=== PATIENT | male | born 1985 | race African-American/Black ===

== ENCOUNTER 2020-04-08 08:27 | Inpatient (IN) | payer OTHER ==
[2020-04-08] VITALS (12 sets, daily range): BP systolic 114–148; BP diastolic 6–76
[~2020-04-08] VITALS: Ht 175.3 cm; Wt 93.0 kg
[2020-04-08] MEDS ORDERED: CIPRO500 MG PO (12:10)
[2020-04-08] MEDS ORDERED: AUGMENTIN 875-1 EAC1 ORAL (12:11)
[2020-04-08] MEDS ORDERED: EPINEPHrine 1mg/1ml Amp ONE (12:31)
[2020-04-08] MEDS ORDERED: Lidocaine 1% 10mg/ml/Epi 0.005mg/ml 30ml vial INJ ONE (12:32)
[2020-04-08] MEDS ORDERED: Bacitracin 50000 Units Vial ONE (12:32)
[2020-04-08] MEDS ORDERED: fentaNYL 100 mcg/2 mL IV ONE (12:34)
[2020-04-08] MEDS ORDERED: Midazolam 2mg/2ml Inj ONE (12:34)
[2020-04-08] MEDS ORDERED: Lidocaine 1% MPF 10mg/ml 5ml ONE (12:39)
[2020-04-08] MEDS ORDERED: Ketorolac 30mg Inj ONE (12:39)
[2020-04-08] MEDS ORDERED: Rocuronium Bromide 50mg/5ml Inj IV ONE ×2 (12:45→14:16)
[2020-04-08] MEDS ORDERED: Succinylcholine 20mg/ml 10ml vial ONE (12:45)
--- NOTE | 2020-04-08 12:56 | Anethesia Preoperative Eval ---
Anesthesia Pre-op PMH/ROS General Date of Evaluation: Apr 08, 2020 Time of Evaluation: 12:54 Anesthesiologist: Shaan ASA Score: ASA 2 Mallampati Score Class I : Soft palate, uvula, fauces, pillars visible Class II: Soft palate, uvula, fauces visible Class III: Soft palate, base of uvula visible Class IV: Only hard plate visible Mallampati Classification: Class II Surgeon: Elvis Diagnosis: Recurrent HS Surgical Procedure: Excision of axillary HS Anesthesia History: none Family History: no anesthesia problems Allergies: Coded Allergies: No Known Allergies (Unverified , 04/08/20) Medications: see eMAR Patient NPO?: Yes Past Medical History Cardiovascular: Denies: HTN, CAD, [place], valve dz, arrhythmia, other Pulmonary: Denies: asthma, COPD, PETER, other Gastrointestinal/Genitourinary: Reports: GERD; Denies: CRI, ESRD, other Neurologic/Psychiatric: Reports: depression/anxiety; Denies: dementia, CVA, TIA, other Endocrine: Denies: DM, hypothyroidism, steroids, other HEENT: Denies: cataract (L), cataract (R), glaucoma, [place] (L), [place] (R), other Hematology/Immune: Denies: anemia, DVT, bleeding disorder, other Musculoskeletal/Integumentary: Reports: other - Recurrent HS; Denies: OA, RA, DJD, DDD, edema PMH Narrative: as above PSxH Narrative: None Anesthesia Pre-op Phys. Exam Physician Exam Last Vital Signs Date Time Temp Pulse Resp B/P (MAP) Pulse Ox O2 Delivery O2 Flow Rate FiO2 04/08/20 12:35 Room Air 04/08/20 12:13 98.8 70 20 129/76 (93) 99 Constitutional: NAD Neurologic: CN 2-12 intact Cardiovascular: RRR, no M/R/G Respiratory: CTA Gastrointestinal: S/NT/ND Airway Exam Mallampati Score: Class II MO: full Neck: flexible ROM: full Teeth: intact Dentures: no upper, no lower Anesthesia Pre-op A/P Labs see chart Studies Pre-op Studies: EKG - NSR Risk Assessment & Plan Assessment: ASA 2 Plan: GA with ETT Status Change Before Surgery: No Pre-Antibiotics Drug: Ancef 2gr. Given Within 1 Hr of Incision: Yes Time Given: 13:28 Bhupinder Garduno MD Apr 08, 2020 12:56
[2020-04-08] MEDS ORDERED: NORCO 5-325 TA1 EAC1 ORAL (12:57)
[2020-04-08] MEDS ORDERED: Sterile Water Irrig 1000ml IRRIG ONE (13:00)
[2020-04-08] MEDS ORDERED: LR 1000ml ONE (13:00)
[2020-04-08] MEDS ORDERED: NS Irrig 1000ml ONE (13:00)
--- NOTE | 2020-04-08 13:05 | Pre-Procedure Note/Attestation ---
Pre-Procedure Note/Attestation Complete Prior to Procedure Planned Procedure: bilateral Procedure Narrative: Bilateral axillary excision of HS with flap elevation Attestation I attest that I discussed the nature of the procedure; its benefits; risks and complications; and alternatives (and the risks and benefits of such alternatives), prior to the procedure, with the patient (or the patient's legal territory representative). I attest that, if there was a reasonable possibility of needing a blood transfusion, the patient (or the patient's legal territory representative) was given the [facility] standardized written summary, pursuant to the Miguelangel Thayer Blood Safety Act ([place] Health and Safety Code # 1645, as amended). I attest that I re-evaluated the patient just prior to the surgery and that there has been no change in the patient's H&P, except as documented below: Anastasiya Leal MD Apr 08, 2020 13:05
[2020-04-08] MEDS ORDERED: PCA Education Pamphlet MISC ONE ×2 (13:15→13:45)
[2020-04-08] MEDS ORDERED: Zolpidem 5mg tab ORAL PRN (13:15)
[2020-04-08] MEDS ORDERED: Rate Change PCA 1 Each MISC PRN ×2 (13:15→13:45)
--- NOTE | 2020-04-08 13:24 | History and Physical ---
History of Present Illness General Date patient seen: Apr 08, 2020 Reason for Hospitalization: Wound drainage, pain, post op hypoxia Present Illness HPI 35 year old gentleman with a PMH of hydradenitis suppurativa presents after surgery with Dr. Leal for bilateral axillary hidradenitis suppurativa construction for post op pain, wound drainage and hypoxia. Patient tolerated the surgery well. Estimated blood loss is 100 cc. Currently pain is 4/10 and explained how to use GANTRY RIGGER pump. Patient has no MOISES drains. He has no other complaints besides being groggy from anesthesia. He was on Augmentin and ciprofloxacin prior to proedure. Denies chest pain, headache, blurred vision, weakness, abdominal pain, dysuria or fever. Allergies: Coded Allergies: No Known Allergies (Unverified , 04/08/20) COVID-19 Screening Contact w/high risk pt: No Experienced COVID-19 symptoms?: No Medication History Scheduled Amoxicillin/Potassium Clav 875-125* (Augmentin 875-125 Tablet*), 1 TAB ORAL TWICE A DAY, (Reported) Ciprofloxacin* (Cipro*), 750 MG PO BID, (Reported) Scheduled PRN Hydrocodone Bit/Acetaminophen 5-325* (Man 5-325 Tablet*), 1 TAB ORAL Q6H PRN for FOR PAIN, (Reported) Patient History History Provided By: Patient, PMD Healthcare decision maker N Resuscitation status Full Advanced Directive on File Yes Past Medical/Surgical History Past Medical/Surgical History: (1) Hidradenitis suppurativa Family History Family History: FH: HTN (hypertension) 33 FATHER Social History Social History: (1) Non-smoker Review of Systems Constitutional: Denies: sweats, malaise Eye: Denies: blurred vision, tearing, nose pain, nose congestion ENT: Denies: nose pain, nose congestion, throat pain, throat swelling Respiratory: Reports: shortness of breath; Denies: cough, stridor, wheezing Cardiovascular: Denies: chest pain, edema, palpitations, syncope Gastrointestinal: Denies: abdominal pain, constipation, diarrhea, nausea, melena Genitourinary: Denies: discharge, dysuria Musculoskeletal: Denies: joint pain, joint swelling, muscle pain Skin: Reports: lesions, other - HS; Denies: rash, change in color, change in hair/nails Psychiatric: Denies: depressed feelings, emotional problems Neurological: Denies: numbness, paresthesia, seizure Endocrine: Denies: flushing, intolerance to temperature Hematologic/Lymphatic: Denies: blood clots, easy bleeding, easy bruising Physical Exam General Appearance: no apparent distress, lethargic, overweight, alert oriented x3 Lines, tubes and drains: peripheral HEENT: normocephalic, PERRL Neck: non-tender, normal alignment, supple Respiratory/Chest: chest wall non-tender, lungs clear, no respiratory distress, no accessory muscle use, decreased breath sounds Cardiovascular/Chest: normal peripheral pulses, normal rate, regular rhythm, no gallop/murmur, no JVD Abdomen: non tender, soft, no organomegaly, no mass Extremities: normal inspection, non-pitting, other - limet ROM due to sugical pain Skin Exam: normal pigmentation, warm/dry, no diaphoresis, other - surgical wounds Neurologic: machine heel seat laster II-XII grossly normal, no motor/sensory deficits, alert, oriented x 3, responsive, normal mood/affect Last 24 Hour Vital Signs Date Time Temp Pulse Resp B/P (MAP) Pulse Ox O2 Delivery O2 Flow Rate FiO2 04/08/20 12:35 Room Air 04/08/20 12:13 98.8 70 20 129/76 (93) 99 Height (Feet): 5 Height (Inches): 9.00 Weight (Pounds): 190 Assessment/Plan Problem List: (1) Hidradenitis suppurativa ICD Codes: L73.2 - Hidradenitis suppurativa SNOMED: 14005114 (2) Wound drainage ICD Codes: T14.8XXA - Other injury of unspecified body region, initial encounter SNOMED: 82141768, 120196941 (3) Post-op pain ICD Codes: G89.18 - Other acute postprocedural pain SNOMED: 937036670 (4) Postoperative hypoxia ICD Codes: R09.02 - Hypoxemia; Z98.890 - Other specified postprocedural states SNOMED: 316158865, 491011598 Assessment/Plan: 35 year old gentleman with a PMH of hydradenitis suppurativa presents after surgery with Dr. Leal for bilateral axillary hidradenitis suppurativa construction for post op pain, wound drainage and hypoxia. #Bilateral hydradenitis suppurativa s/p reconstruction #Post-op pain #Post op hypoxia #Surgical wound drainage -Admit to inpatient -Ancef 1g q8 hours -Wound care -Keep O2 sat grater than 92% -ISS -CBC, CMP in the AM -GANTRY RIGGER pump for pain control -Bowel regiment -PT/OT -Heparin subQ 5000 BID -Appreciate recs for Dr. Leal I spent 80 minutes on this admission with 45 minuted of care coordination and counseling. I discussed plan with Dr. Leal. I reviewed plan with RN and charge nurse. Discussed with pharmacy. Kael Shankar M.D. Apr 08, 2020 13:24
[2020-04-08] MEDS ORDERED: Metoclopramide 10mg/2ml Inj IVP PRN (13:30)
[2020-04-08] MEDS ORDERED: Acetaminophen (Non formulary) 100 ML IV ONE (13:30)
[2020-04-08] MEDS ORDERED: LR 1000ml 1,000 ML IVLG SCH (13:30)
[2020-04-08] MEDS ORDERED: Midazolam 2mg/2ml Inj IVP PRN (13:30)
[2020-04-08] MEDS ORDERED: Ketorolac 30mg Inj IV PRN (13:30)
[2020-04-08] MEDS ORDERED: DiphenhydrAMINE 50mg/ml Inj IVP PRN (13:30)
[2020-04-08] MEDS ORDERED: Meperidine 25mg/0.5ml Inj (FOR RIGORS ONLY) IV PRN (13:30)
[2020-04-08] MEDS ORDERED: LORazepam 1mg tab ORAL PRN (13:45)
[2020-04-08] MEDS ORDERED: Naloxone 0.4mg/ml Inj IVP PRN (13:45)
[2020-04-08] MEDS ORDERED: Morphine Sulfate 10mg/ml Inj ONE (13:51)
[2020-04-08] MEDS ORDERED: Sodium Chloride 10ml vial INJ ONE (13:52)
[2020-04-08] MEDS ORDERED: Neostigmine 1mg/ml 10ml Inj ONE (13:54)
[2020-04-08] MEDS ORDERED: Glycopyrrolate 0.2mg/ml 1ml Vial ONE (13:54)
[2020-04-08] MEDS ORDERED: PCA HYDROmorphone 1mg/ml 30 ML IV PRN (14:17)
[2020-04-08] MEDS ORDERED: Surgicel 4in x 8in TOPIC ONE (14:25)
--- NOTE | 2020-04-08 15:38 | Operative Note - PDOC ---
Operative Note Operative Note Procedure: Bilateral axillary HS excision and flap elevation Post-op Diagnosis: same as pre-op Surgeon: Elvis [employer] Superintendent: Maegan Anesthesia: general Specimen: yes Complications: none Condition: stable Estimated Blood Loss: volume - 100 Drains: none Implant(s) used?: No Anastasiya Leal MD Apr 08, 2020 15:38
--- NOTE | 2020-04-08 15:59 | Immediate Post-Op Evaluation ---
Immediate Post-Op Evalulation Immediate Post-Op Evalulation Procedure: Excision of bilateral axillary hydradenitis Date of Evaluation: Apr 08, 2020 Time of Evaluation: 15:58 IV Fluids: 1500 Blood Products: none Estimated Blood Loss: 100 Urinary Output: none Blood Pressure Systolic: 146 Blood Pressure Diastolic: 78 Pulse Rate: 102 Respiratory Rate: 22 O2 Sat by Pulse Oximetry: 99 Temperature (Fahrenheit): 97.6 Pain Score (1-10): 1 Nausea: No Vomiting: No Complications none Patient Status: reacts, patent, extubated, none Hydration Status: adequate Bhupinder Garduno MD Apr 08, 2020 15:59
--- NOTE | 2020-04-08 17:25 | NUR ---
NURSE NOTES: Patient arrived safely to 3E via patient bed in stable condition. Vital signs are stable, no signs of distress or reports of pain at this time.
[2020-04-08] MEDS: D5 1/2NS 1,000 ML IV SCH (18:43)
[2020-04-08] MEDS ORDERED: PCA shift volume MISC SCH (19:00)
[2020-04-08] MEDS: PCA shift volume MISC SCH (19:19)
--- NOTE | 2020-04-08 19:20 | NUR ---
NURSE HAND-OFF: Important Events on Shift:[none] Patient Status: stable Diet: regular Pending Orders: Pending Results/Labs: Pending MD notification: Latest Vital Signs: Temperature 97.9 , Pulse 94 , B/P 122 /73 , Respiratory Rate 20 , O2 SAT 96 , Nasal Cannula, O2 Flow Rate 3 . Vital Sign Comment: Latest Tong Fall Score: 35 Fall Risk: Medium Risk Safety Measures: Call light Within Reach, Bed Alarm , Side Rails Side Rails x1, Bed position Low and Locked. Fall Precautions: Yellow Socks Report given to Hua GRAHAM.
--- NOTE | 2020-04-08 19:30 | NUR ---
NURSE NOTES: Received report from Osmin GRAHAM. Rounding is done. Patient is a/o x4. c/o pain 5/10 at this time with TEACHER OF THE DEAF. Educated how to use TE[employer]ER [employer] DEAF for pain and pt verbalized his understanding. No any distress noted at this time and breathing is even and unlabored. Checked TE[employer]ER OF [employer]AF setting. IV site are intact and patent. IV fluid is running on Rt. hand. Surgical Dressing on horace. axillaries are c/d/i. Bed is on alarm, locked, and lowest position. Call light within reach. Will continue to monitor.
[2020-04-08] MEDS: ceFAZolin 1gm in D5W 55ml IVPB SCH (21:05)
[2020-04-08] MEDS: DiphenhydrAMINE 50mg/ml Inj IVP PRN (21:05)
[2020-04-08 21:52] LABS: BASOPHILS % (AUTO) 0.4 % (0.0-2.0); HEMATOCRIT 35.9 % (42.0-52.0); HEMOGLOBIN 12.1 G/DL (14.2-18.0); LYMPHOCYTES % (AUTO) 7.8 % (20.0-45.0); MEAN CORPUSCULAR VOLUME 91 FL (80-99); MONOCYTES % (AUTO) 8.1 % (1.0-10.0); NEUTROPHILS % (AUTO) 83.8 % (45.0-75.0); PLATELET COUNT 253 K/UL (150-450); RED BLOOD COUNT 3.96 M/UL (4.70-6.10); RED CELL DISTRIBUTION WIDTH 10.8 % (11.6-14.8); WHITE BLOOD COUNT 16.2 K/UL (4.8-10.8)
--- NOTE | 2020-04-08 22:14 | Operative Note - Dictated ---
DATE OF OPERATION: 04/08/2020 PREOPERATIVE DIAGNOSIS: Bilateral advanced stage III hidradenitis in the axilla. POSTOPERATIVE DIAGNOSIS: Bilateral advanced stage III hidradenitis in the axilla. PROCEDURES: 1. Radical excision of left axillary hidradenitis resulting in a defect that measured 20 x 15 cm. 2. Radical excision of right axillary hidradenitis resulting in a defect that measured 10 x 8 cm. 3. Elevation of left lateral chest wall flap for staged closure of left axillary wound. 4. Elevation of right lateral chest wall flap for staged closure of right axillary wound. SURGEON: Anastasiya Leal MD ROTOR BLADE INSTALLER: Nasir Issa MD ANESTHESIA: General. COMPLICATIONS: None. DRAINS: None. ESTIMATED BLOOD LOSS: 100 mL. DISPOSITION: Stable to recovery room. INDICATIONS FOR SURGERY: This is a 35-year-old male with longstanding history of hidradenitis suppurativa, who has undergone previous medical and surgical treatment up in [facility] and has still those treatments. He sought treatment by nd, treatment for management of advanced stage hidradenitis. He has stage III Mayorga hidradenitis in both axillae with exquisite tenderness and pain in a very large area under the left axilla and a slightly smaller area on the right axilla, both of which require urgent excisional debridement with reconstruction; however, given the level of infection present, it was not appropriate to perform a simultaneous reconstruction. As such, the patient will undergo a staged reconstruction at a second surgery. He understands the risks and benefits of the operation and agrees to proceed. DETAILS OF THE OPERATION: The patient was brought to the operating room and laid in the supine position on the operating table. We first began on the left side and his left axilla, chest, and the abdomen were prepped and draped in a sterile usual fashion. The area of the disease on the left side was quite large as stated. A marking pen was used to delineate the extent of the excision and a corresponding flap was designed to cover the anticipated defect. We began by first injecting 20 mL of lidocaine with epinephrine into the infected tissue to minimize the bleeding. After several minutes were lapsed, a 15 blade was used to make the incision around the mcdonough of the axillary disease. With the electrocautery and hand, we dissected all the way to the level of the axillary fascia and there was noted to be extension of the disease all the way deep into the axillary region. Once the specimen was removed en bloc, the resulting defect was quite large, more than 20 x 15 cm. Clearly, it was not amenable to definitive closure primarily. As such, the flap that had been designed was revised to allow for coverage of this large defect. There was also an extension of the disease up to the arm We had to mobilize from the brachial tissue laterally to allow for some mobilization and eventual coaptation with the chest wall flap. The flap was then elevated by making a U-shaped incision along the lateral chest wall. Dissection was carried down to the latissimus muscle fascia. The flap was elevated with perfusion coming from the continuous loft operator of the thoracodorsal artery. With the flap fully mobilized, the skin was then tentatively inset into the defect and it was noted to cover about 80% of the defect of the area by the lateral aspect of the upper arm with an area where we needed to remove some of the brachial flap that we had elevated to cover, otherwise the lateral chest wall flap covered most of the defect. We noted that the donor site was quite large. We had good mobilization as we normally do both inferiorly and superiorly with respect to the latissimus muscle to bring the donor site together and it was noted that it was relatively tight over the superior aspect of the incision. Normally, what I would do at this stage is that we put the flap back into the donor site and put wet-to-dry dressing into the axillary defect with eventual reconstruction that would occur in 48 to 72 hours; however, given the presence of the tight closure of the donor site, I decided to perform some acute tissue expansion or creep by temporarily closing the donor site and leaving the flap in the axillary defect. In this way, the tissues at the donor site would be on stretch over the next 72 hours prior to definitive closure of the donor site and flap inset. Therefore, the decision was made and we went ahead and proceeded by first copiously irrigating the wound bed and after achieving hemostasis, the donor site was closed over Surgicel and this was a temporary closure achieved with #0 Vicryl sutures and raven and some standing 2-0 Prolene sutures. The flap was inset loosely into the axillary defect just with raven and this completed the operation on this side of the patient. Compressive dressings were then applied. We turned our attention to the contralateral axilla. In a similar fashion, markings were made along the axillary disease on this side. A 15 blade was then used following the injection of lidocaine with epinephrine, to excise the disease en bloc. This resulted in a defect that measured 10 x 8 cm. A corresponding U-shaped lateral chest wall flap was designed and elevated using a #15 blade to make the skin incision and electrocautery was used to carry down the incision and dissection to the latissimus muscle fascia. The flap was then elevated based off of perforators of the thoracodorsal artery and with full mobilization, we tentatively put the flap into the defect and noted that it fit perfectly. At this point, the wound was then copiously irrigated with pulse lavage. Hemostasis was achieved. The flap was then placed back to the donor site. Raven were used to secure the flap. Wet-to-dry dressings were placed into the axillary defect and the compression dressings were applied. The plan will be to place the patient on IV antibiotics and to perform dressing changes at the bedside as needed with a plan to return to the operating room on Saturday, which would be in 72 hours for definitive flap inset. All needle and sponge counts were correct at the end of the case. The patient tolerated the procedure well and there was no complications. Anastasiya Leal M.D. DR: Mercedes JOB#: [id number] CC: CHAD
[2020-04-08] MEDS: Heparin 5000 units/ml inj SUBQ SCH (22:44)
[2020-04-09] VITALS: BP 106/68
[2020-04-09 04:00] VITALS: BP 122/79
[2020-04-09] MEDS: DiphenhydrAMINE 50mg/ml Inj IVP PRN ×3 (04:39→18:51)
[2020-04-09] MEDS: D5 1/2NS 1,000 ML IV SCH ×2 (04:39→13:22)
[2020-04-09] MEDS: ceFAZolin 1gm in D5W 55ml IVPB SCH ×3 (05:58→22:07)
[2020-04-09 06:19] LABS: BASOPHILS % (AUTO) 0.9 % (0.0-2.0); EOSINOPHILS % (AUTO) 0.3 % (0.0-3.0); HEMATOCRIT 33.2 % (42.0-52.0); HEMOGLOBIN 11.5 G/DL (14.2-18.0); LYMPHOCYTES % (AUTO) 19.9 % (20.0-45.0); MEAN CORPUSCULAR VOLUME 88 FL (80-99); MONOCYTES % (AUTO) 10.5 % (1.0-10.0); NEUTROPHILS % (AUTO) 68.3 % (45.0-75.0); PLATELET COUNT 260 K/UL (150-450); RED BLOOD COUNT 3.78 M/UL (4.70-6.10); RED CELL DISTRIBUTION WIDTH 10.3 % (11.6-14.8); WHITE BLOOD COUNT 9.7 K/UL (4.8-10.8)
[2020-04-09 06:51] LABS: ALANINE AMINOTRANSFERASE 32 U/L (12-78); ALBUMIN 2.9 G/DL (3.4-5.0); ALBUMIN/GLOBULIN RATIO 0.9 (1.0-2.7); ALKALINE PHOSPHATASE 42 U/L (46-116); ANION GAP 8 mmol/L (5-15); ASPARTATE AMINO TRANSFERASE 20 U/L (15-37); BILIRUBIN,TOTAL 0.5 MG/DL (0.2-1.0); BLOOD UREA NITROGEN 16 mg/dL (7-18); CALCIUM 7.9 MG/DL (8.5-10.1); CARBON DIOXIDE 27 MMOL/L (21-32); CHLORIDE 104 MMOL/L (98-107); CREATININE 1.2 MG/DL (0.55-1.30); POTASSIUM 3.9 MMOL/L (3.5-5.1); SODIUM 139 MMOL/L (136-145)
[2020-04-09] MEDS: PCA shift volume MISC SCH ×2 (07:00→19:27)
--- NOTE | 2020-04-09 07:30 | NUR ---
NURSE NOTES: Received report from Sudha RN, rounds made, pt in bed awake , a/ox4, breaths regular and unlabored on RA , pt c/o pain 10/29 . pt on GREEN END WORKER Dilaudid for pain management , bilateral Axillary dressing clean intact, pt has IVF on the RT hand 20G , intact patent asymptomatic bed in low locked position, side rails upX2, call light with in reach will continue to Monitor
--- NOTE | 2020-04-09 07:32 | NUR ---
NURSE HAND-OFF: Important Events on Shift:[pain control] Patient Status: [stable] Diet: [regular] Pending Orders: [n] Pending Results/Labs:[n] Pending MD notification:[n] Latest Vital Signs: Temperature 98.1 , Pulse 70 , B/P 122 /79 , Respiratory Rate 18 , O2 SAT 99 , Nasal Cannula, O2 Flow Rate 2.0 . Vital Sign Comment: [stable] Latest Tong Fall Score: 35 Fall Risk: Medium Risk Safety Measures: Call light Within Reach, Bed Alarm Zone 2, Side Rails Side Rails x2, Bed position Low and Locked. Fall Precautions: Yellow Socks Report given to [gómez GRAHAM].
[2020-04-09 08:00] VITALS: BP 155/79
--- NOTE | 2020-04-09 09:20 | 48 Hour Post Anesthesia Eval ---
Post Anesthesia Evaluation Procedure: Excision of bilateral axillary hydradenitis Date of Evaluation: Apr 09, 2020 Time of Evaluation: 09:19 Blood Pressure Systolic: 124 0: 78 Pulse Rate: 86 Respiratory Rate: 22 Temperature (Fahrenheit): 97.8 O2 Sat by Pulse Oximetry: 99 Airway: patent Nausea: No Vomiting: No Pain Intensity: 3 Hydration Status: adequate Cardiopulmonary Status: stable Mental Status/LOC: patient returned to baseline Follow-up Care/Observations: n/a Post-Anesthesia Complications: none Follow-up care needed: N/A Bhupinder Garduno MD Apr 09, 2020 09:20
[2020-04-09] MEDS: Heparin 5000 units/ml inj SUBQ SCH ×2 (09:32→22:08)
--- NOTE | 2020-04-09 10:26 | General Progress Note ---
Progress Note Progress Note Pt seen and examined. POD# 1 and doing well. Pain is well controlled. Dressings CDI To OR on Saturday for flap closure of wounds. MD Elvis Horan Amir MD Apr 09, 2020 10:26
--- NOTE | 2020-04-09 10:52 | General Progress Note ---
Subjective Date patient seen: Apr 09, 2020 Time patient seen: 08:45 ROS Limited/Unobtainable: No Constitutional: Reports: malaise; Denies: chills, diaphoresis, fever, weakness HEENT: Denies: double vision, ear pain Cardiovascular: Denies: edema, irregular heart rate, palpitations Respiratory: Denies: shortness of breath, SOB with excertion, SOB at rest, sputum Gastrointestinal/Abdominal: Denies: abdominal pain, black stools, tarry stools, blood in stool Genitourinary: Denies: frequency, hematuria, incontinence, urgency Neurologic/Psychiatric: Denies: depressed, emotional problems, numbness Endocrine: Denies: intolerance to cold, increased hunger Hematologic/Lymphatic: Reports: anemia; Denies: easy bleeding, easy bruising Allergies: Coded Allergies: No Known Allergies (Unverified , 04/08/20) Objective Last 24 Hour Vital Signs Date Time Temp Pulse Resp B/P (MAP) Pulse Ox O2 Delivery O2 Flow Rate FiO2 04/09/20 09:20 86 22 99 04/09/20 09:00 Nasal Cannula 2.0 04/09/20 08:00 98.4 90 20 155/79 (104) 99 04/09/20 08:00 90 20 99 04/09/20 04:00 70 18 99 04/09/20 04:00 98.1 70 18 122/79 (93) 99 04/09/20 00:00 70 18 98 04/09/20 00:00 98.0 70 18 106/68 (81) 98 04/08/20 21:00 Nasal Cannula 2.0 04/08/20 20:00 80 18 95 04/08/20 20:00 97.8 80 18 114/76 (89) 95 04/08/20 18:25 94 20 96 04/08/20 18:10 92 19 98 04/08/20 17:15 97.9 04/08/20 17:00 97.9 66 15 126/6 100 Nasal Cannula 3 04/08/20 17:00 16 04/08/20 16:50 70 15 128/61 100 Nasal Cannula 3 04/08/20 16:46 15 04/08/20 16:35 83 13 127/62 100 Nasal Cannula 3 04/08/20 16:20 60 21 133/70 100 Nasal Cannula 3 04/08/20 16:10 80 12 129/68 100 Simple Mask 6 04/08/20 16:00 90 18 129/56 100 Simple Mask 6 04/08/20 15:59 102 22 99 04/08/20 15:55 84 14 138/68 100 Simple Mask 6 04/08/20 15:50 98.4 104 22 148/67 100 Simple Mask 6 04/08/20 12:35 Room Air 04/08/20 12:13 98.8 70 20 129/76 (93) 99 Intake and Output 04/08/20 04/09/20 19:00 07:00 Intake Total 1500 ml 1810 ml Output Total 100 ml 450 ml Balance 1400 ml 1360 ml Intake Oral 0 ml 600 ml IV Total 1500 ml 1210 ml Output Urine Total 450 ml Estimated Blood Loss 100 ml # Voids 1 2 Laboratory Tests 04/08/20 21:45: White Blood Count 16.2H, Red Blood Count 3.96L, Hemoglobin 12.1L, Hematocrit 35.9L, Mean Corpuscular Volume 91, Mean Corpuscular Hemoglobin 30.4, Mean Corpuscular Hemoglobin Concent 33.5, Red Cell Distribution Width 10.8L, Platelet Count 253, Mean Platelet Volume 5.2L, Neutrophils (%) (Auto) 83.8H, Lymphocytes (%) (Auto) 7.8L, Monocytes (%) (Auto) 8.1, Eosinophils (%) (Auto) 0.0, Basophils (%) (Auto) 0.4 04/09/20 04:50: White Blood Count 9.7, Red Blood Count 3.78L, Hemoglobin 11.5L, Hematocrit 33.2L , Mean Corpuscular Volume 88, Mean Corpuscular Hemoglobin 30.4, Mean Corpuscular Hemoglobin Concent 34.5, Red Cell Distribution Width 10.3L, Platelet Count 260, Mean Platelet Volume 5.4L, Neutrophils (%) (Auto) 68.3, Lymphocytes (%) (Auto) 19.9L, Monocytes (%) (Auto) 10.5H, Eosinophils (%) (Auto) 0.3, Basophils (%) (Auto) 0.9, Sodium Level 139, Potassium Level 3.9, Chloride Level 104, Carbon Dioxide Level 27, Anion Gap 8, Blood Urea Nitrogen 16, Creatinine 1.2, Estimat Glomerular Filtration Rate > 60, Glucose Level 100, Calcium Level 7.9L, Total Bilirubin 0.5, Aspartate Amino Transf (AST/SGOT) 20, Alanine Aminotransferase (ALT/SGPT) 32, Alkaline Phosphatase 42L, Total Protein 6.2L, Albumin 2.9L, Globulin 3.3, Albumin/Globulin Ratio 0.9L Height (Feet): 5 Height (Inches): 9.00 Weight (Pounds): 190 General Appearance: no apparent distress, lethargic, alert oriented x3 EENT: normal ENT inspection Neck: normal alignment, supple, normal inspection Cardiovascular: normal peripheral pulses, normal rate, regular rhythm, no gallop/murmur, no JVD Respiratory/Chest: chest wall non-tender, lungs clear, normal breath sounds, no respiratory distress, no accessory muscle use Abdomen: non tender, soft, no organomegaly, no mass Extremities: other - Arm ROM limed due to surgery Edema: no edema noted Arm (L), no edema noted Arm (R), no edema noted Leg (L), no edema noted Leg (R), no edema noted Pedal (L), no edema noted Pedal (R), no edema noted Generalized Neurologic: global security architect II-XII grossly normal, abnormal gait, alert, oriented x 3, responsive, normal mood/affect Skin: normal pigmentation, warm/dry, no diaphoresis Assessment/Plan Problem List: (1) Hidradenitis suppurativa ICD Codes: L73.2 - Hidradenitis suppurativa SNOMED: 36661478 (2) Wound drainage ICD Codes: T14.8XXA - Other injury of unspecified body region, initial encounter SNOMED: 16053329, 979770125 (3) Post-op pain ICD Codes: G89.18 - Other acute postprocedural pain SNOMED: 319810486 (4) Postoperative hypoxia ICD Codes: R09.02 - Hypoxemia; Z98.890 - Other specified postprocedural states SNOMED: 281019710, 699503394 (5) Acute blood loss anemia ICD Codes: D62 - Acute posthemorrhagic anemia SNOMED: 166235897 Status: stable Assessment/Plan: 35 year old gentleman with a PMH of hydradenitis suppurativa presents after surgery with Dr. Leal for bilateral axillary hidradenitis suppurativa construction for post op pain, wound drainage and hypoxia. #Bilateral hydradenitis suppurativa s/p reconstruction #Post-op pain #Post op hypoxia #Surgical wound drainage #Leukocytosis - resolving -Admit to inpatient -Ancef 1g q8 hours -Wound care -Keep O2 sat grater than 92% -ISS -CBC, CMP in the AM -BLACK TOP MACHINE OPERATOR pump for pain control -Bowel regiment -PT/OT -Heparin subQ 5000 BID -Appreciate recs for Dr. Leal #Acute blood loss anemia -Trend CBC closely - Transfuse for Hg less than 7 I spent 37 minutes on this admission with 22 minuted of care coordination and counseling. I discussed plan with Dr. Leal. I reviewed plan with RN and charge nurse. Discussed with pharmacy. Kael Shankar M.D. Apr 09, 2020 10:52
[2020-04-09 12:00] VITALS: BP_SYST 143; BP_SYST 145; BP_DIAS 79
[2020-04-09] MEDS ORDERED: Naloxone 0.4mg/ml Inj IVP PRN (12:07)
[2020-04-09] MEDS ORDERED: Rate Change PCA 1 Each MISC PRN (12:15)
[2020-04-09] MEDS ORDERED: LORazepam 1mg tab ORAL PRN (13:45)
[2020-04-09 16:00] VITALS: BP_SYST 128; BP_SYST 145; BP_DIAS 79; BP_DIAS 83
[2020-04-09] MEDS: PCA HYDROmorphone 1mg/ml 30 ML IV PRN (17:01)
--- NOTE | 2020-04-09 17:03 | General Progress Note ---
Progress Note Progress Note Pt seen and examined. Came to assess him because texted me that he was in severe pain. His vitals as per the nurse are stable and he was saturating well on room air. Removed the dressing on the left side and examined the area. All the tissues are viable. The lateral chest wall donor site does feel tight on him as expected from the closure but otherwise the remainder of the exam is unremarkable. His pain improved with administration of the BEEKEEPER FARMER bolus and during my time in his room his symptoms improved. Will continue to observe. Anastasiya Escobar MD Apr 09, 2020 17:03
--- NOTE | 2020-04-09 19:30 | NUR ---
Received report from José Miguel GRAHAM.
--- NOTE | 2020-04-09 19:30 | NUR ---
Received pt. in bed, on high fowlers position, awake, alert and verbally responsive, with O2 @ 2lpm via nc, tolerating well. With mild pain as verbalized pt. on both axilla, with dressing dry and intact. post op. With bed in it's lowest position, with alarm on and locked. Call light is within reach. Will continue with plan of care.
--- NOTE | 2020-04-09 19:54 | NUR ---
NURSE HAND-OFF: Important Events on Shift:Monitor pain Patient Status: stable Diet: regular Pending Orders: Pending Results/Labs: Pending MD notification: Latest Vital Signs: Temperature 98.8 , Pulse 96 , B/P 128 /83 , Respiratory Rate 20 , O2 SAT 95 , Nasal Cannula, O2 Flow Rate 2.0 . Vital Sign Comment: Latest Tong Fall Score: 35 Fall Risk: Medium Risk Safety Measures: Call light Within Reach, Bed Alarm Zone 2, Side Rails Side Rails x2, Bed position Low and Locked. Fall Precautions: Yellow Socks Report given to Al RN.
[2020-04-09 20:00] VITALS: BP_SYST 131; BP_SYST 145; BP_DIAS 79; BP_DIAS 87
--- NOTE | 2020-04-09 23:30 | NUR ---
All due meds given. With shagger pump ongoing. Noted to have both dressing with slight soaked drainage, reinforced both post op site, kept dry and clean. Able to void freely. Encouraged to do Incentive Spirometer when awake.With scd on right leg attached.Will continue to monitor.
[2020-04-10] VITALS (7 sets, daily range): BP systolic 120–147; BP diastolic 67–84
[2020-04-10] MEDS: D5 1/2NS 1,000 ML IV SCH ×2 (00:14→08:22)
[2020-04-10 05:39] LABS: BASOPHILS % (AUTO) 0.7 % (0.0-2.0); EOSINOPHILS % (AUTO) 0.2 % (0.0-3.0); HEMATOCRIT 32.9 % (42.0-52.0); HEMOGLOBIN 11.3 G/DL (14.2-18.0); LYMPHOCYTES % (AUTO) 12.4 % (20.0-45.0); MEAN CORPUSCULAR VOLUME 88 FL (80-99); MONOCYTES % (AUTO) 8.4 % (1.0-10.0); NEUTROPHILS % (AUTO) 78.4 % (45.0-75.0); PLATELET COUNT 233 K/UL (150-450); RED BLOOD COUNT 3.73 M/UL (4.70-6.10); RED CELL DISTRIBUTION WIDTH 10.2 % (11.6-14.8); WHITE BLOOD COUNT 14.8 K/UL (4.8-10.8)
[2020-04-10 05:55] LABS: ALANINE AMINOTRANSFERASE 34 U/L (12-78); ALBUMIN/GLOBULIN RATIO 0.8 (1.0-2.7); ALKALINE PHOSPHATASE 44 U/L (46-116); ANION GAP 4 mmol/L (5-15); ASPARTATE AMINO TRANSFERASE 23 U/L (15-37); BILIRUBIN,TOTAL 0.4 MG/DL (0.2-1.0); BLOOD UREA NITROGEN 10 mg/dL (7-18); CALCIUM 8.9 MG/DL (8.5-10.1); CARBON DIOXIDE 30 MMOL/L (21-32); CHLORIDE 99 MMOL/L (98-107); CREATININE 1.3 MG/DL (0.55-1.30); SODIUM 133 MMOL/L (136-145)
[2020-04-10] MEDS: ceFAZolin 1gm in D5W 55ml IVPB SCH ×2 (06:01→13:19)
--- NOTE | 2020-04-10 06:24 | NUR ---
Pt. slept @ long intervals. Able to turned and repositioned for comfort and circulation. Encouraged to do IS when awake and as much as he can. On continued O2@ 2lpm via nc, takes off at times, instructed to keep it on so his O2 level won't drop; verbalized understanding. Voiding freely. With scd on right leg, attached and on at all times. Able to use bathroom with assistance. Will continue with plan of care.
[2020-04-10] MEDS: PCA shift volume MISC SCH ×2 (07:00→19:29)
--- NOTE | 2020-04-10 07:21 | NUR ---
NURSE HAND-OFF: Important Events on Shift:pain mngt; dressing reinforced on both post op site Patient Status: stable Diet: reg. Pending Orders: Flap closure of wound Pending Results/Labs:cbc,cmp Pending MD notification:lab results Latest Vital Signs: Temperature 98.1 , Pulse 92 , B/P 147 /84 , Respiratory Rate 21 , O2 SAT 95 , Nasal Cannula, O2 Flow Rate 2.0 . Vital Sign Comment: Latest Tong Fall Score: 35 Fall Risk: Medium Risk Safety Measures: Call light Within Reach, Bed Alarm Zone 2, Side Rails Side Rails x2, Bed position Low and Locked. Fall Precautions: Yellow Socks Report given to José Miguel GRAHAM .
--- NOTE | 2020-04-10 07:49 | NUR ---
NURSE NOTES: Received report from AL RN, rounds made, pt in bed awake , a/ox4, breaths regular and unlabored on RA pt having breakfast , denies pain at this time. pt continues PEARL RESTORER Dilaudid for pain management , bilateral Axillary dressing clean intact, pt has IVF on the RT hand 20G , intact patent asymptomatic, family by the bed side, bed in low locked position, side rails upX2, call light with in reach will continue to Monitor
[2020-04-10] MEDS: Heparin 5000 units/ml inj SUBQ SCH ×2 (08:21→21:00)
[2020-04-10] MEDS: DiphenhydrAMINE 50mg/ml Inj IVP PRN (10:53)
--- NOTE | 2020-04-10 11:46 | NUR ---
CASE MANAGEMENT: Information sent: Face sheet/ H&P / operative and progress reports/ lab and imaging reports inc admit order). HP: [facility] POS Attn: [facility] @ #[phone]. REF# [id number].
--- NOTE | 2020-04-10 12:23 | General Progress Note ---
Subjective Date patient seen: Apr 10, 2020 Time patient seen: 08:00 Constitutional: Reports: diaphoresis; Denies: fever, malaise, weakness HEENT: Denies: eye pain, double vision, ear discharge Cardiovascular: Denies: edema, irregular heart rate, lightheadedness, palpitations Respiratory: Reports: shortness of breath; Denies: orthopnea, SOB with excertion, SOB at rest, sputum, stridor Gastrointestinal/Abdominal: Denies: abdomen distended, abdominal pain, black stools, blood in stool Genitourinary: Denies: frequency, flank pain, hematuria, incontinence Neurologic/Psychiatric: Denies: anxiety, depressed, emotional problems, numbness Endocrine: Denies: excessive sweating, flushing, intolerance to cold, intolerance to heat Hematologic/Lymphatic: Reports: anemia; Denies: easy bleeding, easy bruising Allergies: Coded Allergies: No Known Allergies (Unverified , 04/08/20) All Systems: reviewed and negative except above Subjective Patient feels warm but the is no recorded fever. Feel tightness in his axilla but no pain. Has not had BM yet. Objective Last 24 Hour Vital Signs Date Time Temp Pulse Resp B/P (MAP) Pulse Ox O2 Delivery O2 Flow Rate FiO2 04/10/20 11:55 96 18 98 04/10/20 11:54 98.4 96 17 120/81 (94) 98 04/10/20 09:00 Nasal Cannula 2.0 04/10/20 08:00 98.0 91 17 136/67 (90) 96 04/10/20 08:00 91 19 96 04/10/20 04:00 92 21 95 04/10/20 04:00 98.1 93 17 130/81 (97) 96 04/10/20 00:00 92 21 95 04/10/20 00:00 98.5 92 21 147/84 (105) 95 04/09/20 21:00 Nasal Cannula 2.0 04/09/20 20:00 98.2 103 22 131/87 (102) 95 04/09/20 20:00 83 18 100 04/09/20 16:00 83 18 100 04/09/20 16:00 98.8 96 20 128/83 (98) 95 Intake and Output 04/09/20 04/10/20 19:00 07:00 Intake Total 930 ml 1555 ml Output Total 900 ml Balance 930 ml 655 ml Intake Oral 830 ml 600 ml IV Total 100 ml 955 ml Output Urine Total 900 ml # Voids 2 4 Laboratory Tests 04/10/20 04:40: White Blood Count 14.8#H, Red Blood Count 3.73L, Hemoglobin 11.3L, Hematocrit 32.9L, Mean Corpuscular Volume 88, Mean Corpuscular Hemoglobin 30.4, Mean Corpuscular Hemoglobin Concent 34.5, Red Cell Distribution Width 10.2L, Platelet Count 233, Mean Platelet Volume 5.5L, Neutrophils (%) (Auto) 78.4H, Lymphocytes (%) (Auto) 12.4L, Monocytes (%) (Auto) 8.4, Eosinophils (%) (Auto) 0.2, Basophils (%) (Auto) 0.7, Sodium Level 133L, Potassium Level 5.0, Chloride Level 99, Carbon Dioxide Level 30, Anion Gap 4L, Blood Urea Nitrogen 10, Creatinine 1.3, Estimat Glomerular Filtration Rate > 60, Glucose Level 117H, Calcium Level 8.9, Total Bilirubin 0.4, Aspartate Amino Transf (AST/SGOT) 23, Alanine Aminotransferase (ALT/SGPT) 34, Alkaline Phosphatase 44L, Total Protein 6.8, Albumin 3.0L, Globulin 3.8, Albumin/Globulin Ratio 0.8L Height (Feet): 5 Height (Inches): 9.00 Weight (Pounds): 190 General Appearance: no apparent distress, lethargic, alert oriented x3 EENT: normal ENT inspection Neck: normal alignment, supple, normal inspection Cardiovascular: normal peripheral pulses, normal rate, regular rhythm, no g allop/murmur Respiratory/Chest: chest wall non-tender, no respiratory distress, no accessory muscle use, decreased breath sounds Abdomen: soft, no organomegaly, no mass, hypoactive bowel sounds Pelvis: normal external exam Extremities: other - Rom limete due to sergery Edema: no edema noted Arm (L), no edema noted Arm (R), no edema noted Leg (L), no edema noted Leg (R), no edema noted Pedal (L), no edema noted Pedal (R), no edema noted Generalized Neurologic: engraving patternmaker II-XII grossly normal, alert, oriented x 3, responsive, normal mood/affect Skin: normal pigmentation, warm/dry, no diaphoresis Assessment/Plan Problem List: (1) Hidradenitis suppurativa ICD Codes: L73.2 - Hidradenitis suppurativa SNOMED: 61902139 (2) Wound drainage ICD Codes: T14.8XXA - Other injury of unspecified body region, initial encounter SNOMED: 88249963, 401670743 (3) Post-op pain ICD Codes: G89.18 - Other acute postprocedural pain SNOMED: 710584204 (4) Postoperative hypoxia ICD Codes: R09.02 - Hypoxemia; Z98.890 - Other specified postprocedural states SNOMED: 205012551, 556854452 (5) Acute blood loss anemia ICD Codes: D62 - Acute posthemorrhagic anemia SNOMED: 802558401 (6) Hyponatremia ICD Codes: E87.1 - Hypo-osmolality and hyponatremia SNOMED: 36014406 Status: stable Assessment/Plan: 35 year old gentleman with a PMH of hydradenitis suppurativa presents after surgery with Dr. Leal for bilateral axillary hidradenitis suppurativa construction for post op pain, wound drainage and hypoxia. #Bilateral hydradenitis suppurativa s/p reconstruction #Post-op pain #Post op hypoxia- persisting #Surgical wound drainage #Leukocytosis - worsening -Ancef 1g q8 hours -Blood cultures x2, UA and chest XR -Wound care -Keep O2 sat grater than 92% -ISS, ambulation with assist -CBC, CMP in the AM -JEWEL HOLE ROUGH OPENER pump for pain control -Bowel regiment - miralax daily -PT/OT -Heparin subQ 5000 BID -Appreciate recs for Dr. Leal #Acute blood loss anemia -Trend CBC closely - Transfuse for Hg less than 7 #Mild Euvolemic Hyponatremia -Discontinue D5 1/2NS -Encouraged eating and drinking -AM labs I spent 39 minutes on this admission with 22 minuted of care coordination and counseling. I discussed plan with Dr. Leal. I reviewed plan with RN and charge nurse. Discussed with pharmacy. Kael Shankar M.D. Apr 10, 2020 12:23
[2020-04-10] MEDS ORDERED: D5 1/2NS 1000ml IV ONE (14:48)
--- NOTE | 2020-04-10 17:04 | Diagnostic Imaging Report ---
EXAM: XR Chest, 1 View CLINICAL HISTORY: COUGH TECHNIQUE: Frontal view of the chest. COMPARISON: No relevant prior studies available. FINDINGS: Lungs: Reduced lung volumes. Patchy infiltrate in the left lung base. Pleural space: Unremarkable. No pneumothorax. Heart: Unremarkable. No cardiomegaly. Mediastinum: Unremarkable. Bones/joints: No acute fracture. Soft tissues: Bilateral skin brianne and soft tissue swelling. Possibly soft tissue emphysema left lower chest wall. IMPRESSION: Reduced lung volumes. Patchy infiltrate in the left lung base.
[2020-04-10] MEDS: PCA HYDROmorphone 1mg/ml 30 ML IV PRN (17:29)
--- NOTE | 2020-04-10 19:15 | NUR ---
NURSE NOTES: received report from José Miguel GRAHAM.
--- NOTE | 2020-04-10 19:15 | NUR ---
Received pt. in bed, on high fowlers position, with mild pain on both post op site on horace. axilla; no sob noted,awake, alert and verbally responsive. With LONG TERM CARE PHLEBOTOMIST pump ongoing. With bed in it's lowest position, with alarm on and locked. Will continue to monitor.
--- NOTE | 2020-04-10 19:36 | NUR ---
NURSE HAND-OFF: Important Events on Shift: febrileX1, will endorse to restaurant shift supervisor to monitor Patient Status: stable Diet: regular Pending Orders: Pending Results/Labs: Pending MD notification: Latest Vital Signs: Temperature 99.4 , Pulse 100 , B/P 140 /81 , Respiratory Rate 18 , O2 SAT 94 , Nasal Cannula, O2 Flow Rate 2.0 . Vital Sign Comment: Latest Tong Fall Score: 35 Fall Risk: Medium Risk Safety Measures: Call light Within Reach, Bed Alarm Zone 2, Side Rails Side Rails x2, Bed position Low and Locked. Fall Precautions: Yellow Socks Report given to Francia GRAHAM
[2020-04-10] MEDS: Cefepime HCl 1 GM in D5W 55 ML IVPB SCH (20:00)
--- NOTE | 2020-04-10 22:15 | NUR ---
All meds given. Encouraged to incentive spirometer and able to perform when awake. Called Dr. Asad MD portfolio consultant for IV fluids and resume D5 1/2 NS x 100cc/hr. orders taken and carried out. Instructed pt. and present in the room about the surgery in AM that he will be NPO at midnight, verbalized understanding. Able to turn and reposition for comfort and circulation.
[2020-04-11] VITALS (16 sets, daily range): BP systolic 114–148; BP diastolic 51–84
[2020-04-11] MEDS: DiphenhydrAMINE 50mg/ml Inj IVP PRN ×3 (01:48→21:20)
--- NOTE | 2020-04-11 02:25 | NUR ---
Wasted 2.4 cc from the BEATER ENGINEER HELPER pump due to flow malfunction.
[2020-04-11] MEDS: Cefepime HCl 1 GM in D5W 55 ML IVPB SCH ×2 (03:48→12:00)
[2020-04-11] MEDS ORDERED: D5 1/2NS 1,000 ML IV SCH (04:00)
[2020-04-11 06:30] LABS: BASOPHILS % (AUTO) 1.1 % (0.0-2.0); EOSINOPHILS % (AUTO) 1.1 % (0.0-3.0); HEMATOCRIT 30.7 % (42.0-52.0); HEMOGLOBIN 10.6 G/DL (14.2-18.0); LYMPHOCYTES % (AUTO) 10.2 % (20.0-45.0); MEAN CORPUSCULAR VOLUME 88 FL (80-99); MONOCYTES % (AUTO) 10.2 % (1.0-10.0); NEUTROPHILS % (AUTO) 77.4 % (45.0-75.0); PLATELET COUNT 235 K/UL (150-450); RED BLOOD COUNT 3.48 M/UL (4.70-6.10); RED CELL DISTRIBUTION WIDTH 10.4 % (11.6-14.8); WHITE BLOOD COUNT 12.7 K/UL (4.8-10.8)
[2020-04-11 07:02] LABS: ALANINE AMINOTRANSFERASE 32 U/L (12-78); ALBUMIN 2.7 G/DL (3.4-5.0); ALBUMIN/GLOBULIN RATIO 0.7 (1.0-2.7); ALKALINE PHOSPHATASE 49 U/L (46-116); ANION GAP 5 mmol/L (5-15); ASPARTATE AMINO TRANSFERASE 32 U/L (15-37); BILIRUBIN,TOTAL 0.4 MG/DL (0.2-1.0); BLOOD UREA NITROGEN 7 mg/dL (7-18); CALCIUM 8.3 MG/DL (8.5-10.1); CARBON DIOXIDE 29 MMOL/L (21-32); CHLORIDE 102 MMOL/L (98-107); CREATININE 1.1 MG/DL (0.55-1.30); SODIUM 136 MMOL/L (136-145)
[2020-04-11] MEDS: PCA shift volume MISC SCH ×2 (07:03→19:22)
--- NOTE | 2020-04-11 07:29 | NUR ---
NURSE HAND-OFF: Important Events on Shift:increase in temp; pain mngt. Patient Status: alert and oriented Diet: NPO for surgery Pending Orders: Pending Results/Labs:cmp,cbc,urine Pending MD notification: Latest Vital Signs: Temperature 100.0 , Pulse 100 , B/P 140 /81 , Respiratory Rate 18 , O2 SAT 94 , Nasal Cannula, O2 Flow Rate 2.0 . Vital Sign Comment: Latest Tong Fall Score: 35 Fall Risk: Medium Risk Safety Measures: Call light Within Reach, Bed Alarm Zone 2, Side Rails Side Rails x2, Bed position Low and Locked. Fall Precautions: Yellow Socks Report given to .
[2020-04-11 08:03] LABS: APPEARANCE,URINE CLEAR; BILIRUBIN, URINE NEGATIVE (NEGATIVE); COLOR,URINE PALE YELLOW; GLUCOSE, URINE (UA) NEGATIVE (NEGATIVE); KETONES,URINE NEGATIVE (NEGATIVE); LEUKOCYTE ESTERASE ,URINE NEGATIVE (NEGATIVE); NITRITE,URINE NEGATIVE (NEGATIVE); PH,URINE 6 (4.5-8.0); PROTEIN,URINE NEGATIVE (NEGATIVE); UROBILINOGEN,URINE NORMAL MG/DL (0.0-1.0)
[2020-04-11] MEDS: Heparin 5000 units/ml inj SUBQ SCH ×2 (08:41→20:47)
--- NOTE | 2020-04-11 09:58 | NUR ---
NURSE NOTES: Received report from AL RN, rounds made, pt in bed awake , a/ox4, breaths regular and unlabored on RA pt npo for scheduled procedure , denies pain at this time. pt continues HAT MENDER Dilaudid for pain management , bilateral Axillary dressing clean intact, pt has IVF on the RT hand 20G , intact patent asymptomatic, family by the bed side, bed in low locked position, side rails upX2, call light with in reach will continue to Monitor
--- NOTE | 2020-04-11 10:37 | General Progress Note ---
Subjective Date patient seen: Apr 11, 2020 Time patient seen: 07:15 Constitutional: Denies: chills, diaphoresis, fever, malaise HEENT: Denies: eye pain, blurred vision, tearing, double vision, ear pain Cardiovascular: Denies: edema, irregular heart rate, lightheadedness Respiratory: Reports: shortness of breath; Denies: orthopnea, SOB with excer tion, SOB at rest, sputum, stridor Gastrointestinal/Abdominal: Reports: constipated; Denies: abdomen distended, abdominal pain, black stools, tarry stools, blood in stool Genitourinary: Denies: discharge, frequency, flank pain, hematuria, incontinence, pain Neurologic/Psychiatric: Denies: depressed, emotional problems, headache, numbness, paresthesia Endocrine: Denies: flushing, intolerance to cold, intolerance to heat, increased hunger, increased thirst Allergies: Coded Allergies: No Known Allergies (Unverified , 04/08/20) Subjective Feel tightness in his axilla but no pain. Has not had BM yet. Objective Last 24 Hour Vital Signs Date Time Temp Pulse Resp B/P (MAP) Pulse Ox O2 Delivery O2 Flow Rate FiO2 04/11/20 08:00 98.1 106 20 121/79 (93) 99 04/11/20 04:00 100 18 94 04/11/20 04:00 100.0 22 114/69 (84) 94 04/11/20 00:00 100 18 94 04/11/20 00:00 99.1 19 141/76 (97) 97 04/10/20 21:00 Nasal Cannula 2.0 04/10/20 20:00 100 18 94 04/10/20 20:00 100.0 19 123/73 (90) 95 04/10/20 17:55 99.4 04/10/20 16:00 100 18 94 04/10/20 16:00 99.4 100 17 140/81 (100) 94 04/10/20 11:55 96 18 98 04/10/20 11:54 98.4 96 17 120/81 (94) 98 Intake and Output 04/10/20 04/11/20 19:00 07:00 Intake Total 655 ml Balance 655 ml Intake Oral 500 ml IV Total 155 ml # Voids 4 Laboratory Tests 04/10/20 13:10: Prothrombin Time 11.4, Prothromb Time International Ratio 1.0 04/11/20 06:00: White Blood Count 12.7H, Red Blood Count 3.48L, Hemoglobin 10.6L, Hematocrit 30.7L, Mean Corpuscular Volume 88, Mean Corpuscular Hemoglobin 30.6, Mean Corpuscular Hemoglobin Concent 34.7, Red Cell Distribution Width 10.4L, Platelet Count 235, Mean Platelet Volume 5.2L, Neutrophils (%) (Auto) 77.4H, Lymphocytes (%) (Auto) 10.2L, Monocytes (%) (Auto) 10.2H, Eosinophils (%) (Auto) 1.1, Basophils (%) (Auto) 1.1, Urine Color Pale yellow, Urine Appearance Clear, Urine pH 6, Urine Specific [place] 1.015, Urine Protein Negative, Urine Glucose (UA) Negative, Urine Ketones Negative, Urine Blood Negative, Urine Nitrite Negative, Urine Bilirubin Negative, Urine Urobilinogen Normal, Urine Leukocyte Esterase Negative, Sodium Level 136, Potassium Level 4.0, Chloride Level 102, Carbon Dioxide Level 29, Anion Gap 5, Blood Urea Nitrogen 7, Creatinine 1.1, Estimat Glomerular Filtration Rate > 60, Glucose Level 108H, Calcium Level 8.3L, Total Bilirubin 0.4, Aspartate Amino Transf (AST/SGOT) 32, Alanine Aminotransferase (ALT/SGPT) 32, Alkaline Phosphatase 49, Total Protein 6.4, Albumin 2.7L, Globulin 3.7, Albumin/Globulin Ratio 0.7L Height (Feet): 5 Height (Inches): 9.00 Weight (Pounds): 190 General Appearance: no apparent distress, lethargic, alert oriented x3 EENT: normal ENT inspection, TMs normal Neck: normal alignment, supple, normal inspection Cardiovascular: normal peripheral pulses, normal rate, no gallop/murmur, no JVD Respiratory/Chest: chest wall non-tender, no respiratory distress, no accessory muscle use, decreased breath sounds Abdomen: non tender, soft, no organomegaly, no mass, hypoactive bowel sounds Pelvis: normal external exam Extremities: normal inspection, other - ROM arm limited due to pain Edema: no edema noted Arm (L), no edema noted Arm (R), no edema noted Leg (L), no edema noted Leg (R), no edema noted Pedal (L), no edema noted Pedal (R), no edema noted 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, oriented x 3, responsive, normal mood/affect Skin: normal pigmentation, warm/dry, no diaphoresis Assessment/Plan Problem List: (1) Hidradenitis suppurativa ICD Codes: L73.2 - Hidradenitis suppurativa SNOMED: 47808112 (2) Wound drainage ICD Codes: T14.8XXA - Other injury of unspecified body region, initial encounter SNOMED: 93366691, 367287344 (3) Post-op pain ICD Codes: G89.18 - Other acute postprocedural pain SNOMED: 915232551 (4) Postoperative hypoxia ICD Codes: R09.02 - Hypoxemia; Z98.890 - Other specified postprocedural states SNOMED: 369079268, 344354650 (5) Acute blood loss anemia ICD Codes: D62 - Acute posthemorrhagic anemia SNOMED: 040156593 (6) Hyponatremia ICD Codes: E87.1 - Hypo-osmolality and hyponatremia SNOMED: 07748929 (7) HCAP (healthcare-associated pneumonia) ICD Codes: J18.9 - Pneumonia, unspecified organism SNOMED: 013890355, 704994917 Status: stable Assessment/Plan: 35 year old gentleman with a PMH of hydradenitis suppurativa presents after surgery with Dr. Leal for bilateral axillary hidradenitis suppurativa construction for post op pain, wound drainage and hypoxia. #Bilateral hydradenitis suppurativa s/p reconstruction #Post-op pain #Post op hypoxia- persisting #Surgical wound drainage #Leukocytosis - improving #Low garde post op fever 100F -Ancef 1g q8 hours changed to cefepime 04/10 given CXR of LLL consolidation Vs. 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 Leal #Acute blood loss anemia -Trend CBC closely - Transfuse for Hg less than 7 #Mild Euvolemic Hyponatremia - resolved -Discontinue D5 1/2NS -Encouraged eating and drinking -AM labs I spent 38 minutes on this admission with 22 minuted of care coordination and counseling. I discussed plan with Dr. Leal. I reviewed plan with RN and charge nurse. Discussed with pharmacy. Kael Shankar M.D. Apr 11, 2020 10:38
--- NOTE | 2020-04-11 10:50 | NUR ---
NURSE NOTES: Discharged pt in error .
[2020-04-11] MEDS ORDERED: Bacitracin Oint 15gm Tube TOPIC ONE (11:12)
[2020-04-11] MEDS ORDERED: NeoSporin Gu Irrig 1ml Amp IRRIG ONE (11:13)
[2020-04-11] MEDS ORDERED: Bacitracin 50000 Units Vial ONE (11:13)
[2020-04-11] MEDS ORDERED: Lidocaine 1% 10mg/ml/Epi 0.005mg/ml 30ml vial INJ ONE (11:13)
--- NOTE | 2020-04-11 11:30 | NUR ---
NURSE NOTES: Pt picked and taken down for surgery in hospital bed, up coming antibiotics sent down with patient
[2020-04-11] MEDS ORDERED: Midazolam 2mg/2ml Inj ONE (11:46)
[2020-04-11] MEDS ORDERED: fentaNYL 100 mcg/2 mL IV ONE (11:46)
[2020-04-11] MEDS ORDERED: Lidocaine 1% MPF 10mg/ml 5ml ONE (11:46)
[2020-04-11] MEDS ORDERED: Rocuronium Bromide 50mg/5ml Inj IV ONE (12:53)
--- NOTE | 2020-04-11 13:11 | Anethesia Preoperative Eval ---
Anesthesia Pre-op PMH/ROS General Date of Evaluation: Apr 11, 2020 Time of Evaluation: 13:07 Anesthesiologist: Shaan ASA Score: ASA 2 Mallampati Score Class I : Soft palate, uvula, fauces, pillars visible Class II: Soft palate, uvula, fauces visible Class III: Soft palate, base of uvula visible Class IV: Only hard plate visible Mallampati Classification: Class II Surgeon: Elvis Diagnosis: Recurrent HS Surgical Procedure: Bilateral axillary wounds closure Anesthesia History: none Family History: no anesthesia problems Allergies: Coded Allergies: No Known Allergies (Unverified , 04/08/20) Patient NPO?: Yes Past Medical History Cardiovascular: Denies: HTN, CAD, [place], valve dz, arrhythmia, other Pulmonary: Denies: asthma, COPD, PETER, other Gastrointestinal/Genitourinary: Reports: GERD; Denies: CRI, ESRD, other Neurologic/Psychiatric: Reports: depression/anxiety; Denies: dementia, CVA, TIA, other Endocrine: Denies: DM, hypothyroidism, steroids, other HEENT: Denies: cataract (L), cataract (R), glaucoma, [place] (L), [place] (R), other Hematology/Immune: Reports: anemia - mild; Denies: DVT, bleeding disorder, other Musculoskeletal/Integumentary: Reports: edema - L upper extremity US to rool out DVD; Denies: OA, RA, DJD, DDD, other Other: other - overweight PMH Narrative: as above PSxH Narrative: Surgical treatment for HS Anesthesia Pre-op Phys. Exam Physician Exam Last Vital Signs Date Time Temp Pulse Resp B/P (MAP) Pulse Ox O2 Delivery O2 Flow Rate FiO2 04/11/20 11:30 19 04/11/20 09:00 Room Air 04/11/20 08:00 98.1 106 121/79 (93) 99 04/10/20 21:00 2.0 Constitutional: NAD Neurologic: CN 2-12 intact Cardiovascular: RRR, no M/R/G Respiratory: CTA Gastrointestinal: S/NT/ND Airway Exam Mallampati Score: Class II MO: full Neck: stiff ROM: limited Teeth: intact Dentures: no upper, no lower Anesthesia Pre-op A/P Labs Hematology Test 04/11/20 06:00 White Blood Count 12.7 K/UL (4.8-10.8) H Red Blood Count 3.48 M/UL (4.70-6.10) L Hemoglobin 10.6 G/DL (14.2-18.0) L Hematocrit 30.7 % (42.0-52.0) L Mean Corpuscular Volume 88 FL (80-99) Mean Corpuscular Hemoglobin 30.6 PG (27.0-31.0) Mean Corpuscular Hemoglobin Concent 34.7 G/DL (32.0-36.0) Red Cell Distribution Width 10.4 % (11.6-14.8) L Platelet Count 235 K/UL (150-450) Mean Platelet Volume 5.2 FL (6.5-10.1) L Neutrophils (%) (Auto) 77.4 % (45.0-75.0) H Lymphocytes (%) (Auto) 10.2 % (20.0-45.0) L Monocytes (%) (Auto) 10.2 % (1.0-10.0) H Eosinophils (%) (Auto) 1.1 % (0.0-3.0) Basophils (%) (Auto) 1.1 % (0.0-2.0) Coagulation Test 04/10/20 13:10 Prothrombin Time 11.4 SEC (9.30-11.50) Prothromb Time International Ratio 1.0 (0.9-1.1) Chemistry Test 04/11/20 06:00 Sodium Level 136 MMOL/L (136-145) Potassium Level 4.0 MMOL/L (3.5-5.1) Chloride Level 102 MMOL/L (98-107) Carbon Dioxide Level 29 MMOL/L (21-32) Anion Gap 5 mmol/L (5-15) Blood Urea Nitrogen 7 mg/dL (7-18) Creatinine 1.1 MG/DL (0.55-1.30) Estimat Glomerular Filtration Rate > 60 mL/min (>60) Glucose Level 108 MG/DL (74-106) H Calcium Level 8.3 MG/DL (8.5-10.1) L Total Bilirubin 0.4 MG/DL (0.2-1.0) Aspartate Amino Transf (AST/SGOT) 32 U/L (15-37) Alanine Aminotransferase (ALT/SGPT) 32 U/L (12-78) Alkaline Phosphatase 49 U/L (46-116) Total Protein 6.4 G/DL (6.4-8.2) Albumin 2.7 G/DL (3.4-5.0) L Globulin 3.7 g/dL Albumin/Globulin Ratio 0.7 (1.0-2.7) L Risk Assessment & Plan Assessment: ASA 2 Plan: GA with ETT Status Change Before Surgery: No Pre-Antibiotics Drug: Ancef 1gr Given Within 1 Hr of Incision: Yes Time Given: 13:40 Bhupinder Garduno MD Apr 11, 2020 13:11
[2020-04-11] MEDS ORDERED: Acetaminophen (Non formulary) 100 ML IV ONE (13:15)
--- NOTE | 2020-04-11 13:16 | Pre-Procedure Note/Attestation ---
Pre-Procedure Note/Attestation Complete Prior to Procedure Planned Procedure: bilateral Procedure Narrative: Bilateral axillary wound closures Indications for Procedure Pre-Operative Diagnosis: Bilateral axillary HS Attestation I attest that I discussed the nature of the procedure; its benefits; risks and complications; and alternatives (and the risks and benefits of such alternatives), prior to the procedure, with the patient (or the patient's legal client care representative). I attest that, if there was a reasonable possibility of needing a blood transfusion, the patient (or the patient's legal client care representative) was given the [facility] standardized written summary, pursuant to the [place] Blood Safety Act ([place] Health and Safety Code # 1645, as amended). I attest that I re-evaluated the patient just prior to the surgery and that there has been no change in the patient's H&P, except as documented below: Anastasiya Leal MD Apr 11, 2020 13:16
[2020-04-11] MEDS ORDERED: Metoclopramide 10mg/2ml Inj IVP PRN ×2 (13:26→15:30)
[2020-04-11] MEDS ORDERED: NS Irrig 1000ml ONE (13:30)
[2020-04-11] MEDS ORDERED: Succinylcholine 20mg/ml 10ml vial ONE (13:30)
[2020-04-11] MEDS ORDERED: Rate Change PCA 1 Each MISC PRN ×2 (13:30→15:30)
[2020-04-11] MEDS ORDERED: Sterile Water Irrig 1000ml IRRIG ONE (13:30)
[2020-04-11] MEDS ORDERED: Neostigmine 1mg/ml 10ml Inj ONE (13:30)
[2020-04-11] MEDS ORDERED: Zolpidem 5mg tab ORAL PRN (13:30)
[2020-04-11] MEDS ORDERED: PCA Education Pamphlet MISC ONE ×2 (13:30→15:30)
[2020-04-11] MEDS ORDERED: LR 1000ml ONE (13:30)
[2020-04-11] MEDS ORDERED: Surgicel 4in x 8in TOPIC ONE ×2 (14:00→15:00)
[2020-04-11] MEDS ORDERED: Morphine Sulfate 10mg/ml Inj ONE (14:01)
[2020-04-11] MEDS ORDERED: Glycopyrrolate 0.2mg/ml 1ml Vial ONE (14:09)
--- NOTE | 2020-04-11 15:14 | NUR ---
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 PT EVAL AND THERAPY RECOMMENDATION DVT PROPHYLAXIS ENCOURAGE AMBULATION CASE MANAGEMENT: REVIEW 04/09/20 SI:S/P BILATERAL AXILLARY EXCISION W/ FLAP ELEVATION SUPPER BILATERAL AXILLARY HYDRADENITIS STAGE III 98.4 90 20 155/79 99% ON 2L NC CA+ 7.9 ALB 2.9 IS:IV D5 @100ML/HR HEPARIN SQ BID IV ANCEF TID TYLENOL PO Q4HR/PRN WOUND CARE \: 3E MED SURG UNIT DCP: HOME WHEN STABLE PLAN: NPO ADVANCE DIET TOLERATED CONT 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 PT EVAL AND THERAPY RECOMMENDATION DVT PROPHYLAXIS ENCOURAGE AMBULATION CASE MANAGEMENT: REVIEW 04/10/20 SI:S/P BILATERAL AXILLARY EXCISION W/ FLAP ELEVATION SUPPER BILATERAL AXILLARY HYDRADENITIS STAGE III 100.0 100 19 123/73 95% ON 2L NC WBC 14.8 NA+133 ALKP 44 ALB 3.0 IS:IV D5 @100ML/HR HEPARIN SQ BID IV ANCEF TID TYLENOL PO Q4HR/PRN WOUND CARE \: 3E MED SURG UNIT DCP: HOME WHEN STABLE PLAN: ADVANCE DIET TOLERATED CONT 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 PT EVAL AND THERAPY RECOMMENDATION DVT PROPHYLAXIS ENCOURAGE AMBULATION NPO @MN FOR AM SURGERY CASE MANAGEMENT: REVIEW 04/11/20 SI:S/P BILATERAL AXILLARY EXCISION W/ FLAP ELEVATION SUPPER BILATERAL AXILLARY HYDRADENITIS STAGE III 98.4 90 20 155/79 99% ON WBC 12.7 CA+ 8.3 ALB 2.7 IS:IN SURGERY NOW FOR CLOSURE OF AXILLARY WOUNDS IV D5 @100ML/HR HEPARIN SQ BID IV ANCEF TID TYLENOL PO Q4HR/PRN WOUND CARE \: 3E MED SURG UNIT DCP: HOME WHEN STABLE PLAN: ADVANCE DIET TOLERATED CONT ENCOURAGE 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
[2020-04-11] MEDS ORDERED: LORazepam 1mg tab ORAL PRN (15:30)
[2020-04-11] MEDS ORDERED: Naloxone 0.4mg/ml Inj IVP PRN (15:30)
[2020-04-11] MEDS ORDERED: Midazolam 2mg/2ml Inj IVP PRN (15:30)
[2020-04-11] MEDS ORDERED: Ketorolac 30mg Inj IV PRN (15:30)
[2020-04-11] MEDS ORDERED: Meperidine 25mg/0.5ml Inj (FOR RIGORS ONLY) IV PRN (15:30)
[2020-04-11] MEDS ORDERED: LR 1000ml 1,000 ML IVLG SCH (15:30)
[2020-04-11] MEDS ORDERED: DiphenhydrAMINE 50mg/ml Inj IVP PRN (15:30)
[2020-04-11] MEDS ORDERED: PCA HYDROmorphone 1mg/ml 30 ML IV PRN (15:33)
--- NOTE | 2020-04-11 15:57 | Operative Note - PDOC ---
Operative Note Operative Note Pre-op Diagnosis: Bilateral axillary HS Procedure: Bilateral axillary wound closure Post-op Diagnosis: same as pre-op Surgeon: Elvis Superintendent Transmission: Maegan Anesthesia: general Specimen: yes Complications: none Condition: stable Estimated Blood Loss: volume - 100 Drains: MOISES Implant(s) used?: No Anastasiya Leal MD Apr 11, 2020 15:57
--- NOTE | 2020-04-11 16:08 | Immediate Post-Op Evaluation ---
Immediate Post-Op Evalulation Immediate Post-Op Evalulation Procedure: Revision and closure of bilateral axillary wounds Date of Evaluation: Apr 11, 2020 Time of Evaluation: 16:07 IV Fluids: 600 Blood Products: none Estimated Blood Loss: 50 Urinary Output: none Blood Pressure Systolic: 136 Blood Pressure Diastolic: 68 Pulse Rate: 102 Respiratory Rate: 20 O2 Sat by Pulse Oximetry: 99 Temperature (Fahrenheit): 98.6 Pain Score (1-10): 2 Nausea: No Vomiting: No Complications none Patient Status: reacts, patent, extubated, none Hydration Status: adequate Bhupinder Garduno MD Apr 11, 2020 16:08
[2020-04-11] MEDS: Hydromorphone 0.5mg/0.5ml inj IVP PRN ×2 (16:29→16:45)
--- NOTE | 2020-04-11 17:30 | NUR ---
NURSE NOTES: Pt brought back to the floor s/p surgery via hospital bed. Received report from Ana GRAHAM. Pt stable, vitals checked and are WNL . pt has dressings on bilateral axilla clean intact. PT has a MOISES drain on the R axilla , and a MOISES drain on the L axilla with a wound vac with . Wound vac settings are on 175, low continuous suction. pt c/o pain 9/10 , pt pt has IVF on the L foot , intact patent asymptomatic, encouraged to to use NURSE GYNECOLOGY for pain , will continue to monitor
--- NOTE | 2020-04-11 17:56 | Infectious Diseases Prog Note ---
Assessment/Plan Assessment/Plan Full consult dictated: A) 1) bilateral axilla wounds with drainage, ? infected - s/p surgery 2) ? cap, leukocytosis, fevers, ? sepsis 3) ? left arm cellulitis 4) allergies - nkda P) 1) cefepime, add vancomycin 2) monitor labs and temperatures 3) d/w Dr. Leal 4) thank you Subjective Allergies: Coded Allergies: No Known Allergies (Unverified , 04/08/20) Objective Last 24 Hour Vital Signs Date Time Temp Pulse Resp B/P (MAP) Pulse Ox O2 Delivery O2 Flow Rate FiO2 04/11/20 17:32 16 04/11/20 17:30 98.5 104 18 117/71 (86) 99 04/11/20 17:17 18 04/11/20 17:10 98.2 105 18 132/68 100 Nasal Cannula 3 04/11/20 17:02 17 04/11/20 17:00 107 15 127/66 100 Nasal Cannula 3 04/11/20 16:46 98.2 04/11/20 16:46 98.2 04/11/20 16:45 112 14 125/84 100 Nasal Cannula 3 04/11/20 16:30 110 16 114/52 99 Nasal Cannula 3 04/11/20 16:20 110 16 148/54 100 Simple Mask 6 04/11/20 16:10 117 18 145/53 100 Simple Mask 6 04/11/20 16:08 102 20 99 04/11/20 16:05 106 16 133/51 100 Simple Mask 6 04/11/20 15:58 98.2 109 28 130/52 100 Simple Mask 6 04/11/20 11:30 19 04/11/20 09:00 Room Air 04/11/20 08:00 98.1 106 20 121/79 (93) 99 04/11/20 08:00 106 19 99 04/11/20 04:00 100 18 94 04/11/20 04:00 100.0 22 114/69 (84) 94 04/11/20 00:00 100 18 94 04/11/20 00:00 99.1 19 141/76 (97) 97 04/10/20 21:00 Nasal Cannula 2.0 04/10/20 20:00 100 18 94 04/10/20 20:00 100.0 19 123/73 (90) 95 04/10/20 17:55 99.4 Height (Feet): 5 Height (Inches): 9.00 Weight (Pounds): 210 Laboratory Tests Test 04/11/20 06:00 White Blood Count 12.7 K/UL (4.8-10.8) H Red Blood Count 3.48 M/UL (4.70-6.10) L Hemoglobin 10.6 G/DL (14.2-18.0) L Hematocrit 30.7 % (42.0-52.0) L Mean Corpuscular Volume 88 FL (80-99) Mean Corpuscular Hemoglobin 30.6 PG (27.0-31.0) Mean Corpuscular Hemoglobin Concent 34.7 G/DL (32.0-36.0) Red Cell Distribution Width 10.4 % (11.6-14.8) L Platelet Count 235 K/UL (150-450) Mean Platelet Volume 5.2 FL (6.5-10.1) L Neutrophils (%) (Auto) 77.4 % (45.0-75.0) H Lymphocytes (%) (Auto) 10.2 % (20.0-45.0) L Monocytes (%) (Auto) 10.2 % (1.0-10.0) H Eosinophils (%) (Auto) 1.1 % (0.0-3.0) Basophils (%) (Auto) 1.1 % (0.0-2.0) Urine Color Pale yellow Urine Appearance Clear Urine pH 6 (4.5-8.0) Urine Specific [place] 1.015 (1.005-1.035) Urine Protein Negative (NEGATIVE) Urine Glucose (UA) Negative (NEGATIVE) Urine Ketones Negative (NEGATIVE) Urine Blood Negative (NEGATIVE) Urine Nitrite Negative (NEGATIVE) Urine Bilirubin Negative (NEGATIVE) Urine Urobilinogen Normal MG/DL (0.0-1.0) Urine Leukocyte Esterase Negative (NEGATIVE) Sodium Level 136 MMOL/L (136-145) Potassium Level 4.0 MMOL/L (3.5-5.1) Chloride Level 102 MMOL/L (98-107) Carbon Dioxide Level 29 MMOL/L (21-32) Anion Gap 5 mmol/L (5-15) Blood Urea Nitrogen 7 mg/dL (7-18) Creatinine 1.1 MG/DL (0.55-1.30) Estimat Glomerular Filtration Rate > 60 mL/min (>60) Glucose Level 108 MG/DL (74-106) H Calcium Level 8.3 MG/DL (8.5-10.1) L Total Bilirubin 0.4 MG/DL (0.2-1.0) Aspartate Amino Transf (AST/SGOT) 32 U/L (15-37) Alanine Aminotransferase (ALT/SGPT) 32 U/L (12-78) Alkaline Phosphatase 49 U/L (46-116) Total Protein 6.4 G/DL (6.4-8.2) Albumin 2.7 G/DL (3.4-5.0) L Globulin 3.7 g/dL Albumin/Globulin Ratio 0.7 (1.0-2.7) L Current Medications Medications (Trade) Dose Ordered Sig/[place] Route PRN Reason Start Time Stop Time Status Last Admin Dose Admin Acetaminophen (Tylenol) 650 mg Q4H PRN ORAL FEVER 04/08/20 13:15 05/08/20 13:14 04/10/20 17:25 Cefepime HCl 1 gm/ Dextrose 55 ml @ 110 mls/hr Q8H IVPB 04/10/20 20:00 04/17/20 19:59 04/11/20 03:48 Dextrose/Sodium Chloride 1,000 ml @ 100 mls/hr Q10H IV 04/11/20 15:45 05/11/20 15:44 Diphenhydramine HCl (Benadryl) 25 mg Q15M PRN IVP Itching 04/11/20 15:30 04/11/20 21:00 04/11/20 16:29 Diphenhydramine HCl (Benadryl) 25 mg Q6H PRN IVP Itching/Pruritis 04/11/20 15:30 04/13/20 15:29 Heparin Sodium (Porcine) (Heparin 5000 units/ml) 5,000 units EVERY 12 HOURS SUBQ 04/08/20 21:00 05/23/20 20:59 04/11/20 08:41 Hydromorphone HCl 30 ml @ 0 mls/hr Q24H PRN IV For Pain 04/11/20 15:33 04/13/20 15:32 04/11/20 17:02 Hydromorphone HCl (Dilaudid) 0.5 mg Q5M PRN IVP Severe Pain (Pain Scale 7-10) 04/11/20 15:30 04/11/20 21:00 04/11/20 16:45 Hydromorphone HCl (Dilaudid) 2 mg Q3H PRN IVP Severe Breakthru Pain (>7) 04/09/20 17:00 04/16/20 16:59 Ketorolac Tromethamine (Toradol 30mg) 30 mg Q1H PRN IV Severe Breakthru Pain (>7) 04/11/20 15:30 04/11/20 21:00 Lorazepam (Ativan) 1 mg Q4H PRN ORAL Muscle Spasm 04/11/20 15:30 04/13/20 15:29 Meperidine HCl (Demerol) 25 mg Q15M PRN IV Shivering 04/11/20 15:30 04/11/20 21:00 04/11/20 16:16 Metoclopramide HCl (Reglan) 10 mg Q1H PRN IVP Nausea & Vomiting 04/11/20 15:30 04/11/20 21:00 Metoclopramide HCl (Reglan) 10 mg Q6H PRN IVP Nausea & Vomiting 04/11/20 13:26 05/11/20 13:25 Midazolam HCl (Versed 2mg/2ml vial) 1 mg Q15M PRN IVP For Anxiety 04/11/20 15:30 04/11/20 21:00 Miscellaneous Medication (FASHION DESIGNER Rate Change) 1 ea DAILY PRN MISC rate change 04/11/20 15:30 04/13/20 15:29 Miscellaneous Medication (FASHION DESIGNER shift volume) 1 ea Q12HR@0700,1900 MISC 04/11/20 19:00 04/13/20 18:59 Naloxone HCl (Narcan) 0.1 mg Q1M PRN IVP RR<10/min OR SBP<90 mmHg 04/11/20 15:30 04/13/20 15:29 Ondansetron HCl (Zofran) 4 mg Q6H PRN IVP Nausea & Vomiting 04/11/20 15:30 04/13/20 15:29 Polyethylene Glycol (Miralax) 17 gm DAILY PRN ORAL Constipation 04/10/20 12:15 05/10/20 12:14 Temazepam (RestoriL) 7.5 mg HSPRN PRN ORAL Insomnia 04/11/20 15:30 04/13/20 15:29 Zolpidem Tartrate (Ambien) 5 mg DAILYPRN PRN ORAL Insomnia 04/11/20 13:30 04/18/20 13:29 Yg Moncada MD Apr 11, 2020 17:56
[2020-04-11] MEDS: D5 1/2NS 1,000 ML IV SCH (18:11)
--- NOTE | 2020-04-11 18:12 | Infectious Diseases Prog Note ---
Assessment/Plan Assessment/Plan Full consult dictated: A) 1) bilateral axilla wounds with drainage, ? infected - s/p surgery reconstruction and wound closure 2) ? aspiration pna/hcap vs evolving cap, leukocytosis, fevers, ? sepsis, hyoxia 3) ? left arm cellulitis 4) allergies - nkda P) 1) cefepime, add vancomycin 2) monitor labs and temperatures 3) d/w Dr. Leal 4) thank you Subjective Allergies: Coded Allergies: No Known Allergies (Unverified , 04/08/20) Objective Last 24 Hour Vital Signs Date Time Temp Pulse Resp B/P (MAP) Pulse Ox O2 Delivery O2 Flow Rate FiO2 04/11/20 18:00 98.6 99 18 114/71 (85) 94 04/11/20 17:59 99 19 94 04/11/20 17:32 16 04/11/20 17:30 98.5 104 18 117/71 (86) 99 04/11/20 17:17 18 04/11/20 17:15 98.2 04/11/20 17:15 98.2 04/11/20 17:10 98.2 105 18 132/68 100 Nasal Cannula 3 04/11/20 17:02 17 04/11/20 17:00 107 15 127/66 100 Nasal Cannula 3 04/11/20 16:46 98.2 04/11/20 16:46 98.2 04/11/20 16:45 112 14 125/84 100 Nasal Cannula 3 04/11/20 16:30 110 16 114/52 99 Nasal Cannula 3 04/11/20 16:20 110 16 148/54 100 Simple Mask 6 04/11/20 16:10 117 18 145/53 100 Simple Mask 6 04/11/20 16:08 102 20 99 04/11/20 16:05 106 16 133/51 100 Simple Mask 6 04/11/20 15:58 98.2 109 28 130/52 100 Simple Mask 6 04/11/20 11:30 19 04/11/20 09:00 Room Air 04/11/20 08:00 98.1 106 20 121/79 (93) 99 04/11/20 08:00 106 19 99 04/11/20 04:00 100 18 94 04/11/20 04:00 100.0 22 114/69 (84) 94 04/11/20 00:00 100 18 94 04/11/20 00:00 99.1 19 141/76 (97) 97 04/10/20 21:00 Nasal Cannula 2.0 04/10/20 20:00 100 18 94 04/10/20 20:00 100.0 19 123/73 (90) 95 Height (Feet): 5 Height (Inches): 9.00 Weight (Pounds): 210 Laboratory Tests Test 04/11/20 06:00 White Blood Count 12.7 K/UL (4.8-10.8) H Red Blood Count 3.48 M/UL (4.70-6.10) L Hemoglobin 10.6 G/DL (14.2-18.0) L Hematocrit 30.7 % (42.0-52.0) L Mean Corpuscular Volume 88 FL (80-99) Mean Corpuscular Hemoglobin 30.6 PG (27.0-31.0) Mean Corpuscular Hemoglobin Concent 34.7 G/DL (32.0-36.0) Red Cell Distribution Width 10.4 % (11.6-14.8) L Platelet Count 235 K/UL (150-450) Mean Platelet Volume 5.2 FL (6.5-10.1) L Neutrophils (%) (Auto) 77.4 % (45.0-75.0) H Lymphocytes (%) (Auto) 10.2 % (20.0-45.0) L Monocytes (%) (Auto) 10.2 % (1.0-10.0) H Eosinophils (%) (Auto) 1.1 % (0.0-3.0) Basophils (%) (Auto) 1.1 % (0.0-2.0) Urine Color Pale yellow Urine Appearance Clear Urine pH 6 (4.5-8.0) Urine Specific [place] 1.015 (1.005-1.035) Urine Protein Negative (NEGATIVE) Urine Glucose (UA) Negative (NEGATIVE) Urine Ketones Negative (NEGATIVE) Urine Blood Negative (NEGATIVE) Urine Nitrite Negative (NEGATIVE) Urine Bilirubin Negative (NEGATIVE) Urine Urobilinogen Normal MG/DL (0.0-1.0) Urine Leukocyte Esterase Negative (NEGATIVE) Sodium Level 136 MMOL/L (136-145) Potassium Level 4.0 MMOL/L (3.5-5.1) Chloride Level 102 MMOL/L (98-107) Carbon Dioxide Level 29 MMOL/L (21-32) Anion Gap 5 mmol/L (5-15) Blood Urea Nitrogen 7 mg/dL (7-18) Creatinine 1.1 MG/DL (0.55-1.30) Estimat Glomerular Filtration Rate > 60 mL/min (>60) Glucose Level 108 MG/DL (74-106) H Calcium Level 8.3 MG/DL (8.5-10.1) L Total Bilirubin 0.4 MG/DL (0.2-1.0) Aspartate Amino Transf (AST/SGOT) 32 U/L (15-37) Alanine Aminotransferase (ALT/SGPT) 32 U/L (12-78) Alkaline Phosphatase 49 U/L (46-116) Total Protein 6.4 G/DL (6.4-8.2) Albumin 2.7 G/DL (3.4-5.0) L Globulin 3.7 g/dL Albumin/Globulin Ratio 0.7 (1.0-2.7) L Current Medications Medications (Trade) Dose Ordered Sig/Samanta Route PRN Reason Start Time Stop Time Status Last Admin Dose Admin Acetaminophen (Tylenol) 650 mg Q4H PRN ORAL FEVER 04/08/20 13:15 05/08/20 13:14 04/10/20 17:25 Cefepime HCl 1 gm/ Dextrose 55 ml @ 110 mls/hr Q8H IVPB 04/10/20 20:00 04/17/20 19:59 04/11/20 03:48 Dextrose/Sodium Chloride 1,000 ml @ 100 mls/hr Q10H IV 04/11/20 15:45 05/11/20 15:44 Diphenhydramine HCl (Benadryl) 25 mg Q6H PRN IVP Itching/Pruritis 04/11/20 15:30 04/13/20 15:29 Heparin Sodium (Porcine) (Heparin 5000 units/ml) 5,000 units EVERY 12 HOURS SUBQ 04/08/20 21:00 05/23/20 20:59 04/11/20 08:41 Hydromorphone HCl 30 ml @ 0 mls/hr Q24H PRN IV For Pain 04/11/20 15:33 04/13/20 15:32 04/11/20 17:02 Hydromorphone HCl (Dilaudid) 2 mg Q3H PRN IVP Severe Breakthru Pain (>7) 04/09/20 17:00 04/16/20 16:59 Lorazepam (Ativan) 1 mg Q4H PRN ORAL Muscle Spasm 04/11/20 15:30 04/13/20 15:29 Metoclopramide HCl (Reglan) 10 mg Q6H PRN IVP Nausea & Vomiting 04/11/20 13:26 05/11/20 13:25 Miscellaneous Medication (RIBBON WINDER Rate Change) 1 ea DAILY PRN MISC rate change 04/11/20 15:30 04/13/20 15:29 Miscellaneous Medication (RIBBON WINDER shift volume) 1 ea Q12HR@0700,1900 MISC 04/11/20 19:00 04/13/20 18:59 Naloxone HCl (Narcan) 0.1 mg Q1M PRN IVP RR<10/min OR SBP<90 mmHg 04/11/20 15:30 04/13/20 15:29 Ondansetron HCl (Zofran) 4 mg Q6H PRN IVP Nausea & Vomiting 04/11/20 15:30 04/13/20 15:29 Polyethylene Glycol (Miralax) 17 gm DAILY PRN ORAL Constipation 04/10/20 12:15 05/10/20 12:14 Temazepam (RestoriL) 7.5 mg HSPRN PRN ORAL Insomnia 04/11/20 15:30 04/13/20 15:29 Zolpidem Tartrate (Ambien) 5 mg DAILYPRN PRN ORAL Insomnia 04/11/20 13:30 04/18/20 13:29 Yg Moncada MD Apr 11, 2020 18:12
--- NOTE | 2020-04-11 18:15 | Operative Note - Dictated ---
DATE OF OPERATION: 04/11/2020 PREOPERATIVE DIAGNOSIS: Bilateral open axillary wounds, status post excision of hidradenitis suppurativa. POSTOPERATIVE DIAGNOSIS: Bilateral open axillary wounds, status post excision of hidradenitis suppurativa. PROCEDURE: 1. Preparation of right axillary wound bed for flap transfer. 2. Adjacent tissue transfer and closure of right axillary wound measuring 10 x 8 cm. 3. Preparation of left axillary wound for flap closure. 4. Adjacent tissue transfer and closure of left axillary wound measuring 20 x 15 squared cm. SURGEON: Anastasiya Leal MD GOLD WHEEL BLOCKER AND POLISHER: Nasir Issa MD ANESTHESIA: General. COMPLICATIONS: None. DRAINS: Included size 15 MOISES on both sides in each axilla. We also placed a left wound VAC over the incision of the flap donor site. ESTIMATED BLOOD LOSS: Approximately 50 mL. DISPOSITION: Stable to the recovery room. INDICATIONS FOR SURGERY: This is a 35-year-old male, status post radical excision and flap elevation of hidradenitis 72 hours ago, who is presenting to the operating room for closure of his axillary wounds. At the initial operation, the flaps were elevated and he is now prepared for definitive closure of his wounds. He understood the risks and benefits of surgery and agreed to proceed. DETAILS OF THE OPERATION: The patient was brought to the operating room and laid in the supine position on the operating table. His bilateral axillae were prepped and draped in a sterile usual fashion. We first began on the right side where the axillary wound again measured 10 x 8 cm and was debrided of some of the nonviable tissue in preparation for flap transfer. The flap was previously elevated based off of the perforators of the thoracodorsal artery, from the lateral chest wall. The flap was noted to be of 100% viability and once the wound was copiously irrigated with pulse lavage, the flap transfer was completed allowing for the adjacent tissue transfer of the flap into the wound bed. The flap was then inset using multiple layered suture closure with #0 and 2-0 Vicryl sutures. The donor site was also closed with #0 and 2-0 Vicryl sutures and the skin was closed with running 3-0 Prolene that was reinforced with 2-0 Prolene suture that was interrupted. A size 15 MOISES drain was also placed into the donor site as well as the wound base of the axillary wound prior to closure. We then turned our attention to the contralateral left wound. This side was much more complicated than the right axilla. The flap was actually left in the left axillary wound and the donor site was closed because of relative tightness of the closure. As such, it was decided at that time to allow for tissue expansion and so-called creep of the tissues would allow for eventual closure of the wounds, so at this point, the flap was then de-inset from the axillary defect and this wound measured 20 x 15 cm, quite large, and at this point in time, the wound bed was debrided of some of the nonviable tissue in preparation for flap transfer once again. Of note, we placed several more Prolene sutures into the previously closed donor site and several brianne were placed along the skin incision to further reinforce the closure. We placed Surgicel on the wound bed, a MOISES drain was also placed, and the axillary flap was then inset into the 300 squared cm wound. Again, this flap was previously elevated based off of perforators of the thoracodorsal artery. The flap itself was not of a large enough dimension to cover the wound in its entirety. The flap dimensions were approximately 16 x 10cm. As such the tissue of the deltoid, pec major, as well the medial brachial tissue all had to be elevated to allow for adjacent tissue transfer closure of the wound in conjunction with flap. These flaps were inset with a layered closure of #0 and 2-0 Vicryl sutures with running 3-0 Prolene and 2-0 interrupted Prolene to reinforce the closure. Given the tight closure on the donor site, we felt that an incisional wound VAC would also be of some utility. As such, the donor site incision was covered with a wound VAC that was set to 175 mmHg of continuous suction. The remainder of the incision was covered with a dressing. The patient tolerated the procedure well and there were no complications. Anastasiya Leal M.D. DR: Mercedes JOB#: [id number] CC: CHAD
--- NOTE | 2020-04-11 18:31 | Diagnostic Imaging Report ---
Indication: Extensive axillary edema, history of recent surgery for hidradenitis Technique: Grayscale and duplex images of the left upper extremity veins Comparison: none Findings: The left axillary vein is poorly visualized, due to the presence of skin brianne and bandages related to recent surgery in this area. There is a fluid collection that is fairly superficial within the left axilla. The remaining veins are patent, demonstrating normal flow on Doppler and normal compressibility. Prominent brisk flow is seen in the left subclavian vein, and brisk flow is seen in a tributary vein which appears to be closely related to the axillary artery. The Doppler signal in the axillary vein at this level demonstrates brisk but not pulsatile flow Impression: Somewhat limited exam, as described No definite evidence of left upper extremity venous thrombosis. Note, however, inability to visualize portions of the left axillary vein, and venous thrombosis in this region cannot be completely ruled out Somewhat unusual appearance to the left subclavian vein, with unusually brisk flow, and a briskly flowing branch vessels appears to be closely apposed to the adjacent subclavian artery. Of doubtful significance, but the possibility of a small AV fistula should be considered
[2020-04-11] MEDS: Miralax 17gm pkt ORAL PRN (18:33)
[2020-04-11] MEDS ORDERED: PCA shift volume MISC SCH (19:00)
--- NOTE | 2020-04-11 19:22 | NUR ---
NURSE HAND-OFF: Important Events on Shift: pt s/p surgery Patient Status: stable Diet: Regular Pending Orders: Pending Results/Labs: Pending MD notification: Latest Vital Signs: Temperature 98.2 , Pulse 106 , B/P 115 /71 , Respiratory Rate 20 , O2 SAT 93 , Nasal Cannula, O2 Flow Rate 3 . Vital Sign Comment: Latest Tong Fall Score: 35 Fall Risk: Medium Risk Safety Measures: Call light Within Reach, Bed Alarm Zone 2, Side Rails Side Rails x2, Bed position Low and Locked. Fall Precautions: Yellow Socks Report given to Roseline GRAHAM .
--- NOTE | 2020-04-11 20:15 | Consultation ---
DATE OF CONSULTATION: 04/11/2020 INFECTIOUS DISEASE CONSULTATION CONSULTING PHYSICIAN: Yg Moncada MD. ATTENDING PHYSICIAN: Anastasiya Leal MD. REFERRING PHYSICIANS: 1. Kael Shankar MD. 2. Anastasiya Leal MD. REASON FOR CONSULTATION: Possibly infected wounds of the axilla and also possible sepsis, elevated white count, fevers, questionable community-acquired pneumonia, possible left arm cellulitis. CHIEF COMPLAINT: The patient's chief complaint coming in the hospital is hidradenitis suppurativa of the bilateral axilla with drainage of wounds and possible wound infection. HISTORY OF PRESENT ILLNESS: This is a very pleasant 35-year-old male who has a history of hidradenitis suppurativa. The patient has had recent surgery including bilateral axilla excision of hidradenitis on left and right axilla and also wound closure. It was noted that the patient had elevated white count and fevers. There is a question if the patient is septic. He also has left arm swelling, questionable cellulitis. Infectious Disease consultation is requested for antibiotic management in this patient. He was on Ancef, but was changed to cefepime because of worsening leukocytosis. Infectious Disease consultation requested for antibiotic management. The patient will be continued on cefepime and also I will add vancomycin. The patient's chest x-ray also shows that the patient could have possible pneumonia such as community-acquired pneumonia of the left lung base patchy infiltrate. COVID or SARS testing was negative. MAR was noted. Orders were noted. Notes and records were reviewed. Case has also been discussed with Dr. Leal and the patient, and also communicated with Dr. Kael Shankar from Internal Medicine. We will continue vancomycin and cefepime for now. REVIEW OF SYSTEMS: CONSTITUTIONAL: The patient has been seen postoperatively after the wound closure. He is alert, responsive, some fatigue and weakness postop. No focal weakness. He did have fevers earlier today in the morning of 100.0. Currently, he is afebrile. He has no chills. HEAD AND NECK: No head pain or neck pain. CARDIAC: No chest pain. GASTROINTESTINAL: No nausea, vomiting, or diarrhea. GENITOURINARY: No dysuria or frequency. PULMONARY: No congestion, but maybe mild shortness of breath. No significant secretions. SKIN: No rash. EXTREMITIES: No extremity pain. He has some axilla pain postoperatively. NEUROLOGICAL: Denies seizures. PAST MEDICAL HISTORY: The patient has a past medical history of hidradenitis suppurativa involving the axilla, status post excision and wound closure of the hidradenitis suppurativa of the axilla including reconstruction. The patient does not have any history of diabetes or hypertension. The patient has a history of anemia that is related to surgery. ALLERGIES: The patient has no known drug allergies. No antibiotic allergies. SOCIAL HISTORY: Negative for smoking, alcohol, or drug abuse. FAMILY HISTORY: Noncontributory. MEDICATIONS: Upon reviewing MAR, the patient is on following medications, he is on hydromorphone. He is on , lorazepam, temazepam, diphenhydramine, Zofran, Demerol, diphenhydramine p.r.n., I believe, hydromorphone is p.r.n. He is on zolpidem, metoclopramide, cefepime, hydromorphone, heparin, acetaminophen. Outside medications were noted and reconciliated. Antibiotics, vancomycin and cefepime. PHYSICAL EXAMINATION: VITAL SIGNS: Temperature is 98.5, pulse rate 104, respiratory rate 18, blood pressure 117/71. Saturation 99%. Heart rate as high as 112, temperature as high as 100.0. The patient on 3 liters nasal cannula. GENERAL: Alert, responsive, in no acute distress. He is oriented. HEAD AND NECK: Oral exam, no thrush. Eyes exam, no icterus. Normocephalic. No JVD. HEART: Regular. No gallop or murmur. No friction rub. Tachycardic. ABDOMEN: Soft. Positive bowel sounds. Nontender. LUNGS: Few bilateral rhonchi. Possible rales in left base. SKIN: No rash or dermatitis. Axilla incision sites are covered. MUSCULOSKELETAL: No effusions or septic arthritis. Lower extremities are without cellulitis. He has some left arm swelling. Unclear if it is just edema or cellulitis. PERIPHERAL VASCULAR: No gangrene. GENITOURINARY: Has no Hickey. LINE SITES: Without phlebitis. NEUROLOGIC: Intact, nonfocal. Alert and oriented. LABORATORY DATA: White count 12.7 and hemoglobin 10.6. White count yesterday 14.8. White count on admission 16.2. Creatinine is normal at 1.1. LFTs were noted. UA is negative. Cultures are pending. COVID SARS testing negative. IMAGING STUDIES: Chest x-ray on the showed patchy infiltrates in left lung base. Followup chest x-ray will be ordered. ASSESSMENT AND PLAN: 1. The patient has bilateral axilla wounds with drainage, possibly infected. The patient has history of hidradenitis suppurativa of the axilla. The patient is status post reconstruction, excision and wound closure. The patient currently also has elevated white count, fevers, tachycardia, questionable sepsis. He has what look like possible pneumonia. It is unclear if this is an initial community-acquired pneumonia versus some type of aspiration healthcare-acquired pneumonia post surgery. He does have some hypoxia. He could have questionable left arm cellulitis also. At this time, I agree with cefepime for gram-negative coverage. I will add vancomycin since this could be a healthcare-acquired pneumonia with left arm cellulitis he will need MRSA coverage. Continue vancomycin and cefepime for now to cover the possible again bilateral axilla infected wounds and hidradenitis suppurativa and also possible pneumonia and also possible left arm cellulitis with elevated white count, fevers, and questionable sepsis. Continue antibiotics vancomycin and cefepime pending final workup. We will check followup labs, chest x-ray, and cultures. Case discussed with Dr. Leal. Case was communicated with Dr. Shankar. 2. Hidradenitis suppurativa of the axilla, status post reconstruction, excision and wound closure, bilateral axilla. 3. Anemia. 4. Pain management per primary care team and consultants. 5. No history diabetes and hypertension. 6. No known drug allergies. 7. Social history is negative. 8. Family history is noncontributory. 9. MAR was noted. 10. Case was discussed with SANTOS. Yg Moncada M.D. DR: RACHELE JOB#: [id number] CC:
--- NOTE | 2020-04-11 20:21 | NUR ---
NURSES NOTE: Pt in bed, A/OX4, denies pain currently. at bedside. SYSTEMS PROGRAMMER pump, Dilaudid, in place. Pt states current pain regimen is effective. No outward s/s of distress noted. Breathing pattern is even and unlabored on RA. Dressing, bilateral axilla is clean dry and intact. R and L marlo drains engaged. Wound vac in place, L axilla, on continuous suction, low, 175 mmHg. L foot IV in place, patent, running IVF fluids without incident. All due medications will be given. Bed at lowest level, call light within reach. Pt will continue to be monitored.
[2020-04-11] MEDS: Vancomycin 750mg/D5W 275ml IVPB SCH ×2 (20:44)
[2020-04-11] MEDS ORDERED: Heparin 5000 units/ml inj SUBQ SCH (21:00)
[2020-04-11] MEDS: Cefepime 2gm in D5W 55ml IV SCH (22:59)
[2020-04-12] VITALS (7 sets, daily range): BP systolic 97–141; BP diastolic 62–97
[2020-04-12] MEDS: D5 1/2NS 1,000 ML IV SCH ×3 (00:30→11:15)
[2020-04-12] MEDS: Vancomycin 750mg/D5W 275ml IVPB SCH ×4 (04:00→11:15)
[2020-04-12] MEDS: Cefepime 2gm in D5W 55ml IV SCH ×3 (05:00→21:58)
[2020-04-12] MEDS: DiphenhydrAMINE 50mg/ml Inj IVP PRN ×3 (06:18→21:07)
[2020-04-12 06:38] LABS: BASOPHILS % (AUTO) 1.1 % (0.0-2.0); EOSINOPHILS % (AUTO) 2.4 % (0.0-3.0); HEMATOCRIT 31.6 % (42.0-52.0); LYMPHOCYTES % (AUTO) 11.3 % (20.0-45.0); MEAN CORPUSCULAR VOLUME 88 FL (80-99); MONOCYTES % (AUTO) 7.3 % (1.0-10.0); NEUTROPHILS % (AUTO) 77.9 % (45.0-75.0); PLATELET COUNT 236 K/UL (150-450); RED BLOOD COUNT 3.61 M/UL (4.70-6.10); RED CELL DISTRIBUTION WIDTH 10.3 % (11.6-14.8); WHITE BLOOD COUNT 14.5 K/UL (4.8-10.8)
[2020-04-12 07:17] LABS: ALANINE AMINOTRANSFERASE 34 U/L (12-78); ALBUMIN 2.4 G/DL (3.4-5.0); ALBUMIN/GLOBULIN RATIO 0.6 (1.0-2.7); ALKALINE PHOSPHATASE 50 U/L (46-116); ANION GAP 6 mmol/L (5-15); ASPARTATE AMINO TRANSFERASE 28 U/L (15-37); BILIRUBIN,TOTAL 0.5 MG/DL (0.2-1.0); BLOOD UREA NITROGEN 7 mg/dL (7-18); CALCIUM 8.4 MG/DL (8.5-10.1); CARBON DIOXIDE 30 MMOL/L (21-32); CHLORIDE 102 MMOL/L (98-107); POTASSIUM 3.8 MMOL/L (3.5-5.1); SODIUM 138 MMOL/L (136-145)
[2020-04-12] MEDS: PCA shift volume MISC SCH ×2 (07:29→19:00)
--- NOTE | 2020-04-12 08:00 | NUR ---
NURSE HAND-OFF: Important Events on Shift:[NONE] Patient Status: [STABLE] Diet: [REGULAR] Pending Orders: [NONE] Pending Results/Labs:[CBC BMP] Pending MD notification:[NONE] Latest Vital Signs: Temperature 98.0 , Pulse 92 , B/P 130 /72 , Respiratory Rate 18 , O2 SAT 94 , Room Air, O2 Flow Rate 3 . Vital Sign Comment: [WNL] Latest Tong Fall Score: 35 Fall Risk: Medium Risk Safety Measures: Call light Within Reach, Bed Alarm Zone 2, Side Rails Side Rails x2, Bed position Low and Locked. Fall Precautions: Yellow Socks Report given to [YARETH].
--- NOTE | 2020-04-12 08:05 | NUR ---
NURSE NOTES: Received report from Betty GRAHAM, pt in stable condition, no over night events. pt has bilateral axilla MOISES drains, over night out put: right axilla: 5ml, left axilla 45 ml. left axilla wound vac in place at 175 low continues suction, over night out put: 10ml. pt has a Right AC #18 HP, Right RODRIGUES #18 HP, and Left foot #20 running CHLORINATION OPERATOR Dilaudid and IVF. at bedside. call light within reach, bed in lowest position. side rales up x2. I will f/u as needed.
[2020-04-12] MEDS: Heparin 5000 units/ml inj SUBQ SCH ×2 (08:48→21:59)
[2020-04-12] MEDS ORDERED: PCA HYDROmorphone 1mg/ml 30 ML IV PRN (09:45)
[2020-04-12] MEDS ORDERED: Naloxone 0.4mg/ml Inj IVP PRN (09:45)
[2020-04-12] MEDS ORDERED: LORazepam 1mg tab ORAL PRN (09:45)
[2020-04-12] MEDS ORDERED: Rate Change PCA 1 Each MISC PRN (09:45)
--- NOTE | 2020-04-12 09:55 | NUR ---
*-*DISCHARGE PLANNING*-* PATIENT HAS BEEN REFERRED TO: [facility] P: [phone] S/W [facility] CANNOT SERVICE PATIENT OUTSIDE OF THE [facility].
--- NOTE | 2020-04-12 12:51 | 48 Hour Post Anesthesia Eval ---
Post Anesthesia Evaluation Procedure: Revision and closure of bilateral axillary wounds Date of Evaluation: Apr 12, 2020 Time of Evaluation: 12:50 Blood Pressure Systolic: 106 0: 74 Pulse Rate: 82 Respiratory Rate: 22 Temperature (Fahrenheit): 97.6 O2 Sat by Pulse Oximetry: 98 Airway: patent Nausea: No Vomiting: No Pain Intensity: 4 Hydration Status: adequate Cardiopulmonary Status: stable Mental Status/LOC: patient returned to baseline Follow-up Care/Observations: n/a Post-Anesthesia Complications: none Follow-up care needed: N/A Bhupinder Garduno MD Apr 12, 2020 12:51
--- NOTE | 2020-04-12 13:09 | General Progress Note ---
Progress Note Progress Note Pt seen and examined. POD# 1 and # 4. Doing ok. Dressings intact and left side incisional wound vac in place and functioning. ID on board. Patient still with significant pain requiring further SECURITIES ADVISER Will continue to observe and will have him ambulate today. Anastasiya Escobar MD, MD Apr 12, 2020 13:09
--- NOTE | 2020-04-12 13:35 | General Progress Note ---
Subjective Constitutional: Reports: chills, fever, malaise HEENT: Reports: eye pain, blurred vision Cardiovascular: Reports: chest pain, edema, irregular heart rate Respiratory: Reports: cough, orthopnea, shortness of breath Gastrointestinal/Abdominal: Reports: no symptoms, abdomen distended, abdominal pain, black stools, tarry stools, blood in stool, constipated - reports constipation, diarrhea, difficulty swallowing, nausea, poor appetite, poor fluid intake, rectal bleeding, vomiting, other Genitourinary: Reports: burning Neurologic/Psychiatric: Reports: anxiety, depressed, headache Endocrine: Reports: excessive sweating Allergies: Coded Allergies: No Known Allergies (Unverified , 04/08/20) Subjective patient s/p pilonidal cyst and flap closure in bilateral axilla. Complains of pain but better with morphine pump. No BM in several days. Will increase Benadryl dose as he has pruritus all over his body but no rash noted. Objective Last 24 Hour Vital Signs Date Time Temp Pulse Resp B/P (MAP) Pulse Ox O2 Delivery O2 Flow Rate FiO2 04/12/20 12:51 82 22 98 04/12/20 09:00 Room Air 04/12/20 08:00 97.1 70 20 103/62 (76) 97 04/12/20 08:00 70 20 97 04/12/20 04:00 98.0 92 18 130/72 (91) 94 04/12/20 04:00 92 18 94 04/12/20 00:00 98.3 88 17 111/64 (80) 97 04/12/20 00:00 88 17 97 04/11/20 21:00 Room Air 04/11/20 20:00 99 19 94 04/11/20 20:00 98.2 102 18 127/78 (94) 95 04/11/20 18:23 98.2 106 20 115/71 (86) 93 04/11/20 18:00 98.6 99 18 114/71 (85) 94 04/11/20 17:59 99 19 94 04/11/20 17:32 16 04/11/20 17:30 98.5 104 18 117/71 (86) 99 04/11/20 17:17 18 04/11/20 17:15 98.2 04/11/20 17:15 98.2 04/11/20 17:10 98.2 105 18 132/68 100 Nasal Cannula 3 04/11/20 17:02 17 04/11/20 17:00 107 15 127/66 100 Nasal Cannula 3 04/11/20 16:46 98.2 04/11/20 16:46 98.2 04/11/20 16:45 112 14 125/84 100 Nasal Cannula 3 04/11/20 16:30 110 16 114/52 99 Nasal Cannula 3 04/11/20 16:20 110 16 148/54 100 Simple Mask 6 04/11/20 16:10 117 18 145/53 100 Simple Mask 6 04/11/20 16:08 102 20 99 04/11/20 16:05 106 16 133/51 100 Simple Mask 6 04/11/20 16:00 0 04/11/20 15:58 98.2 109 28 130/52 100 Simple Mask 6 Intake and Output 04/11/20 04/12/20 18:59 06:59 Intake Total 900 ml 480 ml Output Total 385 ml 60 ml Balance 515 ml 420 ml Intake Oral 480 ml IV Total 900 ml Output Urine Total 300 ml Drainage Total 35 ml 60 ml Estimated Blood Loss 50 ml # Voids 5 Laboratory Tests 04/12/20 05:05: White Blood Count 14.5H, Red Blood Count 3.61L, Hemoglobin 11.0L, Hematocrit 31.6L, Mean Corpuscular Volume 88, Mean Corpuscular Hemoglobin 30.5, Mean Corpuscular Hemoglobin Concent 34.7, Red Cell Distribution Width 10.3L, Platelet Count 236, Mean Platelet Volume 5.1L, Neutrophils (%) (Auto) 77.9H, Lymphocytes (%) (Auto) 11.3L, Monocytes (%) (Auto) 7.3, Eosinophils (%) (Auto) 2.4, Basophils (%) (Auto) 1.1, Sodium Level 138, Potassium Level 3.8, Chloride Level 102, Carbon Dioxide Level 30, Anion Gap 6, Blood Urea Nitrogen 7, Creatinine 1.0, Estimat Glomerular Filtration Rate > 60, Glucose Level 106, Calcium Level 8.4L, Total Bilirubin 0.5, Aspartate Amino Transf (AST/SGOT) 28, Alanine Aminotransferase (ALT/SGPT) 34, Alkaline Phosphatase 50, Total Protein 6.2L, Albumin 2.4L, Globulin 3.8, Albumin/Globulin Ratio 0.6L Height (Feet): 5 Height (Inches): 9.00 Weight (Pounds): 210 General Appearance: mild distress, moderate distress, overweight EENT: PERRL/EOMI Neck: non-tender, normal inspection Cardiovascular: normal rate, regular rhythm, regularly irregular Respiratory/Chest: lungs clear, normal breath sounds, no respiratory distress Abdomen: normal bowel sounds, non tender, soft Extremities: normal range of motion, non-tender, other - bilateral axiall bandages clean dry and intact Edema: 1+ Arm (L); no edema noted Arm (R), no edema noted Leg (L), no edema noted Leg (R) Neurologic: family service counselor II-XII grossly normal, no motor/sensory deficits, oriented x 3 Assessment/Plan Status: stable Assessment/Plan: 35 year old gentleman with a PMH of hydradenitis suppurativa presents after surgery with Dr. Leal for bilateral axillary hidradenitis suppurativa construction for post op pain, wound drainage and hypoxia. #Bilateral hydradenitis suppurativa s/p reconstruction #Post-op pain #Surgical wound drainage #Leukocytosis - improving #Low garde post op fever 100F -added cefepime 04/10 and vancomycin given CXR of LLL consolidation Vs. Atelectasis per ID -Blood cultures x2 follow up sensitivities -Wound care -will arrange for outpatient wound vac -ISS, ambulation with assist -SHORT ORDER FRY COOK pump for pain control -Bowel regiment - miralax daily, senna -PT/OT -Appreciate recs for Dr. Leal #Acute blood loss anemia -Trend CBC closely - Transfuse for Hg less than 7 #Mild Euvolemic Hyponatremia - resolved -Discontinue D5 1/2NS -Encouraged eating and drinking -AM labs GI: none Abx: vanc, cefepime Fluids: none Diet: regular DVT: Heparin 5000U BID Dispo: likely discharge with wound snf health and wound vac on saturday/saturday I spent 44 minutes on this encounter with 30 minuted of care coordination and counseling. I discussed plan with Dr. Leal. I reviewed plan with RN and charge nurse. Discussed with pharmacy. Time of note does not reflect time patient was seen Wan Sanders D.O Apr 12, 2020 13:35
[2020-04-12] MEDS ORDERED: Sennosides 8.6mg tab ORAL PRN (13:45)
--- NOTE | 2020-04-12 14:07 | NUR ---
CASE MANAGEMENT: REVIEW 04/12/20 SI:S/P CLOSURE OF AXILLARY WOUNDS S/P BILATERAL AXILLARY EXCISION W/ FLAP ELEVATION SUPPER BILATERAL AXILLARY HYDRADENITIS STAGE III 97.1 70 20 103/62 97% ON RA WBC 14.5 CA+ 8.4 ALB 2.4 IS:IV D5 @100ML/HR HEPARIN SQ BID IV ANCEF TID IV VANCOMYCIN TID TYLENOL PO Q4HR/PRN WOUND CARE \: 3E MED SURG UNIT DCP: HOME WHEN STABLE PLAN: ADVANCE DIET TOLERATED CONT ENCOURAGE 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
--- NOTE | 2020-04-12 14:23 | Infectious Diseases Prog Note ---
Assessment/Plan Assessment/Plan A) 1) bilateral axilla wounds with drainage, ? infected - s/p surgery reconstruction and wound closure 2) ? aspiration pna/hcap vs evolving cap, leukocytosis, fevers, ? sepsis, hyoxia 3) ? left arm cellulitis 4) allergies - nkda P) 1) cefepime and vancomycin 2) monitor labs and temperatures 3) d/w patient 4) will f/u Subjective Constitutional: Denies: fever HEENT: Denies: congestion Respiratory: Denies: shortness of breath Cardiovascular: Denies: chest pain Gastrointestinal/Abdominal: Denies: nausea, vomiting Skin: Reports: other - + itching Allergies: Coded Allergies: No Known Allergies (Unverified , 04/08/20) Objective Last 24 Hour Vital Signs Date Time Temp Pulse Resp B/P (MAP) Pulse Ox O2 Delivery O2 Flow Rate FiO2 04/12/20 12:51 82 22 98 04/12/20 12:00 100 21 97 04/12/20 12:00 98.2 100 21 141/78 (99) 97 04/12/20 11:30 100 21 97 04/12/20 09:00 Room Air 04/12/20 08:00 97.1 70 20 103/62 (76) 97 04/12/20 08:00 70 20 97 04/12/20 04:00 98.0 92 18 130/72 (91) 94 04/12/20 04:00 92 18 94 04/12/20 00:00 98.3 88 17 111/64 (80) 97 04/12/20 00:00 88 17 97 04/11/20 21:00 Room Air 04/11/20 20:00 99 19 94 04/11/20 20:00 98.2 102 18 127/78 (94) 95 04/11/20 18:23 98.2 106 20 115/71 (86) 93 04/11/20 18:00 98.6 99 18 114/71 (85) 94 04/11/20 17:59 99 19 94 04/11/20 17:32 16 04/11/20 17:30 98.5 104 18 117/71 (86) 99 04/11/20 17:17 18 04/11/20 17:15 98.2 04/11/20 17:15 98.2 04/11/20 17:10 98.2 105 18 132/68 100 Nasal Cannula 3 04/11/20 17:02 17 04/11/20 17:00 107 15 127/66 100 Nasal Cannula 3 04/11/20 16:46 98.2 04/11/20 16:46 98.2 04/11/20 16:45 112 14 125/84 100 Nasal Cannula 3 04/11/20 16:30 110 16 114/52 99 Nasal Cannula 3 04/11/20 16:20 110 16 148/54 100 Simple Mask 6 04/11/20 16:10 117 18 145/53 100 Simple Mask 6 04/11/20 16:08 102 20 99 04/11/20 16:05 106 16 133/51 100 Simple Mask 6 04/11/20 16:00 0 04/11/20 15:58 98.2 109 28 130/52 100 Simple Mask 6 Height (Feet): 5 Height (Inches): 9.00 Weight (Pounds): 210 General Appearance: no acute distress HEENT: normocephalic, atraumatic, anicteric Respiratory/Chest: no accessory muscle use Cardiovascular: normal rate Abdomen: soft, non tender Microbiology Date/Time Source Procedure Growth Status 04/10/20 13:25 Blood Blood Culture - Preliminary NO GROWTH AFTER 24 HOURS Resulted 04/10/20 13:10 Blood Blood Culture - Preliminary NO GROWTH AFTER 24 HOURS Resulted Laboratory Tests Test 04/12/20 05:05 White Blood Count 14.5 K/UL (4.8-10.8) H Red Blood Count 3.61 M/UL (4.70-6.10) L Hemoglobin 11.0 G/DL (14.2-18.0) L Hematocrit 31.6 % (42.0-52.0) L Mean Corpuscular Volume 88 FL (80-99) Mean Corpuscular Hemoglobin 30.5 PG (27.0-31.0) Mean Corpuscular Hemoglobin Concent 34.7 G/DL (32.0-36.0) Red Cell Distribution Width 10.3 % (11.6-14.8) L Platelet Count 236 K/UL (150-450) Mean Platelet Volume 5.1 FL (6.5-10.1) L Neutrophils (%) (Auto) 77.9 % (45.0-75.0) H Lymphocytes (%) (Auto) 11.3 % (20.0-45.0) L Monocytes (%) (Auto) 7.3 % (1.0-10.0) Eosinophils (%) (Auto) 2.4 % (0.0-3.0) Basophils (%) (Auto) 1.1 % (0.0-2.0) Sodium Level 138 MMOL/L (136-145) Potassium Level 3.8 MMOL/L (3.5-5.1) Chloride Level 102 MMOL/L (98-107) Carbon Dioxide Level 30 MMOL/L (21-32) Anion Gap 6 mmol/L (5-15) Blood Urea Nitrogen 7 mg/dL (7-18) Creatinine 1.0 MG/DL (0.55-1.30) Estimat Glomerular Filtration Rate > 60 mL/min (>60) Glucose Level 106 MG/DL (74-106) Calcium Level 8.4 MG/DL (8.5-10.1) L Total Bilirubin 0.5 MG/DL (0.2-1.0) Aspartate Amino Transf (AST/SGOT) 28 U/L (15-37) Alanine Aminotransferase (ALT/SGPT) 34 U/L (12-78) Alkaline Phosphatase 50 U/L (46-116) Total Protein 6.2 G/DL (6.4-8.2) L Albumin 2.4 G/DL (3.4-5.0) L Globulin 3.8 g/dL Albumin/Globulin Ratio 0.6 (1.0-2.7) L Current Medications Medications (Trade) Dose Ordered Sig/Samanta Route PRN Reason Start Time Stop Time Status Last Admin Dose Admin Acetaminophen (Tylenol) 650 mg Q4H PRN ORAL FEVER 04/08/20 13:15 05/08/20 13:14 04/10/20 17:25 Cefepime HCl 2 gm/ Dextrose 55 ml @ 110 mls/hr Q8HR IV 04/11/20 22:00 04/18/20 21:59 04/12/20 13:21 Dextrose/Sodium Chloride 1,000 ml @ 100 mls/hr Q10H IV 04/11/20 15:45 05/11/20 15:44 04/12/20 11:15 Diphenhydramine HCl (Benadryl) 50 mg Q6H PRN IVP Itching 04/12/20 09:15 05/12/20 09:14 04/12/20 11:14 Heparin Sodium (Porcine) (Heparin 5000 units/ml) 5,000 units EVERY 12 HOURS SUBQ 04/08/20 21:00 05/23/20 20:59 04/12/20 08:48 Hydromorphone HCl 30 ml @ 0 mls/hr Q24H PRN IV For Pain 04/12/20 09:45 04/13/20 15:29 Hydromorphone HCl (Dilaudid) 2 mg Q3H PRN IVP Severe Breakthru Pain (>7) 04/09/20 17:00 04/16/20 16:59 04/12/20 04:54 Lorazepam (Ativan) 1 mg Q4H PRN ORAL Muscle Spasm 04/12/20 09:45 04/13/20 15:29 Metoclopramide HCl (Reglan) 10 mg Q6H PRN IVP Nausea & Vomiting 04/11/20 13:26 05/11/20 13:25 Miscellaneous Medication (HEEL SPLITTER Rate Change) 1 ea DAILY PRN MISC rate change 04/12/20 09:45 04/13/20 15:29 Miscellaneous Medication (HEEL SPLITTER shift volume) 1 ea Q12HR@0700,1900 MISC 04/12/20 19:00 04/13/20 15:29 Naloxone HCl (Narcan) 0.1 mg Q1M PRN IVP RR<10/min OR SBP<90 mmHg 04/12/20 09:45 04/13/20 15:29 Ondansetron HCl (Zofran) 4 mg Q6H PRN IVP Nausea & Vomiting 04/12/20 09:45 04/13/20 15:29 Polyethylene Glycol (Miralax) 17 gm DAILY PRN ORAL Constipation 04/10/20 12:15 05/10/20 12:14 04/11/20 18:33 Sennosides (Senokot) 8.6 mg DAILYPRN PRN ORAL Constipation 04/12/20 13:45 05/12/20 13:44 Temazepam (RestoriL) 7.5 mg HSPRN PRN ORAL Insomnia 04/12/20 09:45 04/13/20 15:29 Vancomycin HCl (Vanco pharmacy to dose) 1 ea DAILY PRN MISC Per rx protocol 04/11/20 18:30 05/11/20 18:29 Vancomycin HCl 750 mg/Dextrose 275 ml @ 183.333 mls/hr Q8H IVPB 04/11/20 20:00 04/16/20 19:59 04/12/20 11:15 Zolpidem Tartrate (Ambien) 5 mg DAILYPRN PRN ORAL Insomnia 04/11/20 13:30 04/18/20 13:29 Yg Moncada MD Apr 12, 2020 14:23
--- NOTE | 2020-04-12 15:22 | NUR ---
P.T Note: P.T evaluation completed and tx initiated. Please refer to P.T evaluation for current functional status.
--- NOTE | 2020-04-12 20:17 | NUR ---
NURSE HAND-OFF: Important Events on Shift: Patient Status: FULL CODE Diet: REGULAR DIET Pending Orders: [] Pending Results/Labs:[AM LABS Pending MD notification: Latest Vital Signs: Temperature 97.9 , Pulse 100 , B/P 97 /80 , Respiratory Rate 21 , O2 SAT 98 , Room Air, O2 Flow Rate 3 . Vital Sign Comment: [STABLE Latest Tong Fall Score: 35 Fall Risk: Medium Risk Safety Measures: Call light Within Reach, Bed Alarm Zone 2, Side Rails Side Rails x2, Bed position Low and Locked. Fall Precautions: pt needs assistance for ambulation. Yellow Socks Report given to Roseline GRAHAM, patient in stable condition. - during my shift pt walked around the unit with PT assistance. MOISES drain in the right axilla: 40ml MOISES drain in the left axilla: 60ml wound vac in left axilla: 10ml - wound vac form placed in the chart, awaiting for attending to fill out form. - Case management will arrange wound vac for home use as well as home health for wound vac dressing changes.
[2020-04-12] MEDS ORDERED: D5 1/2NS 1000ml IV ONE (21:07)
--- NOTE | 2020-04-12 22:18 | NUR ---
NURSES NOTE: Pt in bed, A/OX4, denies pain currently. SCUBA DIVING TEACHER pump Dilaudid in place- effective. No outward s/s of distress noted. Breathing is even and unlabored on RA. Dressing bilateral Axillary, clean dry and intact. Ben lee drains in place x2, axillary, engaged. IV R hand, R AC, and L foot in place, patent. Wound vac in place, 175 mmhg low continuous setting. All due medications will be given. Bed at lowest level. Call light within reach. Pt will continue to be monitored.
[2020-04-13] MEDS: DiphenhydrAMINE 50mg/ml Inj IVP PRN ×4 (03:13→23:26)
[2020-04-13 04:00] VITALS: BP 128/82
[2020-04-13] MEDS: Cefepime 2gm in D5W 55ml IV SCH ×3 (05:58→23:27)
--- NOTE | 2020-04-13 06:35 | NUR ---
NURSE HAND-OFF: Important Events on Shift:[NONE] Patient Status: [STABLE] Diet: [REGULAR] Pending Orders: [NONE] Pending Results/Labs:[NONE] Pending MD notification:[NONE] Latest Vital Signs: Temperature 98.2 , Pulse 102 , B/P 128 /82 , Respiratory Rate 18 , O2 SAT 96 , Room Air, O2 Flow Rate 3 . Vital Sign Comment: [WNL] Latest Tong Fall Score: 35 Fall Risk: Medium Risk Safety Measures: Call light Within Reach, Bed Alarm Zone 2, Side Rails Side Rails x2, Bed position Low and Locked. Fall Precautions: Yellow Socks Patient Fall Education Report given to [].
[2020-04-13] MEDS: PCA shift volume MISC SCH ×2 (07:00→19:00)
[2020-04-13 08:00] VITALS: BP 152/81
--- NOTE | 2020-04-13 08:00 | NUR ---
NURSES NOTE: Received pt in bed, awake, oriented, complains of bilateral flank pain, compress IT OPERATIONS MANAGER Dilaudid button. In room air, no respiratory distress noted. Dressing bilateral Axillary, clean dry and intact. Ben Sierra drains in place x2, axillary, collecting serosanguineous secretion to bulb. IV R hand, R AC, and L foot in place, patent. Wound vac in place, 175 mmHg. Bed at lowest position possible, call light within reach. Pt will continue to be monitored and nurse will follow up with the plan of care.
[2020-04-13 09:29] LABS: BASOPHILS % (AUTO) 1.1 % (0.0-2.0); EOSINOPHILS % (AUTO) 3.7 % (0.0-3.0); HEMATOCRIT 30.5 % (42.0-52.0); HEMOGLOBIN 10.6 G/DL (14.2-18.0); LYMPHOCYTES % (AUTO) 9.2 % (20.0-45.0); MEAN CORPUSCULAR VOLUME 88 FL (80-99); MONOCYTES % (AUTO) 7.7 % (1.0-10.0); NEUTROPHILS % (AUTO) 78.3 % (45.0-75.0); PLATELET COUNT 258 K/UL (150-450); RED BLOOD COUNT 3.48 M/UL (4.70-6.10); RED CELL DISTRIBUTION WIDTH 10.7 % (11.6-14.8); WHITE BLOOD COUNT 10.3 K/UL (4.8-10.8)
[2020-04-13 09:51] LABS: ANION GAP 7 mmol/L (5-15); BLOOD UREA NITROGEN 5 mg/dL (7-18); CALCIUM 8.7 MG/DL (8.5-10.1); CARBON DIOXIDE 30 MMOL/L (21-32); CHLORIDE 102 MMOL/L (98-107); CREATININE 1.1 MG/DL (0.55-1.30); PHOSPHORUS 3.7 MG/DL (2.5-4.9); POTASSIUM 3.4 MMOL/L (3.5-5.1); SODIUM 139 MMOL/L (136-145)
[2020-04-13] MEDS: Miralax 17gm pkt ORAL PRN (10:06)
[2020-04-13] MEDS: Heparin 5000 units/ml inj SUBQ SCH ×2 (10:09→22:14)
[2020-04-13] MEDS: D5 1/2NS 1,000 ML IV SCH (10:26)
--- NOTE | 2020-04-13 10:59 | NUR ---
RADIOLOGY DEPT.,ABDOMEN X-RAY COMPLETED.-POMAIRA Addendum: 04/13/20 at 1102 by ANUJA DE LA O, MEDICAL EDUCATION MANAGER RAD RADIOLOGY DEPT. CHEST X-RAY , NOT ABDOMEN X-RAY WAS PERFORMED AND COMPLETED.-RENEE
--- NOTE | 2020-04-13 11:32 | General Progress Note ---
Subjective Constitutional: Denies: no symptoms, chills, diaphoresis, fever, malaise, weakness, other HEENT: Denies: eye pain, blurred vision, tearing, double vision Cardiovascular: Denies: chest pain, edema, irregular heart rate, lightheadedness, palpitations Respiratory: Denies: cough, orthopnea, shortness of breath, SOB with excertion, SOB at rest, sputum, stridor, wheezing, other Gastrointestinal/Abdominal: Denies: abdomen distended, abdominal pain, black stools, tarry stools, blood in stool, constipated, diarrhea, difficulty swallowing, nausea, poor appetite, poor fluid intake, rectal bleeding, vomiting, other Genitourinary: Denies: burning, discharge, frequency, flank pain, hematuria, incontinence, pain, urgency, other Neurologic/Psychiatric: Denies: no symptoms, anxiety, depressed, emotional problems, headache, numbness, seizure, tingling, tremors, weakness Endocrine: Denies: no symptoms, excessive sweating, flushing, intolerance to cold, intolerance to heat, increased hunger, increased thirst, increased urine Allergies: Coded Allergies: No Known Allergies (Unverified , 04/08/20) Subjective patient s/p pilonidal cyst and flap closure in bilateral axilla. Pain has improved slightly. No BM in several days. Benadryl has helped with the pruritis, but makes him sleepy. Wounds with dressing in placed, clean dry and intact. Objective Last 24 Hour Vital Signs Date Time Temp Pulse Resp B/P (MAP) Pulse Ox O2 Delivery O2 Flow Rate FiO2 04/13/20 04:00 98.2 102 18 128/82 (97) 96 04/12/20 21:00 Room Air 04/12/20 20:00 98.6 105 19 129/76 (93) 95 04/12/20 20:00 105 19 95 04/12/20 16:00 100 21 98 04/12/20 16:00 97.9 108 21 126/97 (107) 99 04/12/20 12:51 82 22 98 04/12/20 12:00 100 21 97 04/12/20 12:00 98.2 100 21 141/78 (99) 97 04/12/20 11:30 100 21 97 Intake and Output 9/22/20 9/23/20 19:00 07:00 Intake Total 720 ml 1200 ml Output Total 300 ml 2955 ml Balance 420 ml -1755 ml Intake Oral 720 ml 1200 ml Output Urine Total 300 ml 2700 ml Drainage Total 255 ml # Voids 1 4 Laboratory Tests 04/12/20 18:45: Vancomycin Level Trough 9.2 04/13/20 09:15: White Blood Count 10.3, Red Blood Count 3.48L, Hemoglobin 10.6L, Hematocrit 30.5L, Mean Corpuscular Volume 88, Mean Corpuscular Hemoglobin 30.4, Mean Corpuscular Hemoglobin Concent 34.6, Red Cell Distribution Width 10.7L, Platelet Count 258, Mean Platelet Volume 5.0L, Neutrophils (%) (Auto) 78.3H, Lymphocytes (%) (Auto) 9.2L, Monocytes (%) (Auto) 7.7, Eosinophils (%) (Auto) 3.7H, Bas ophils (%) (Auto) 1.1, Sodium Level 139, Potassium Level 3.4L, Chloride Level 102, Carbon Dioxide Level 30, Anion Gap 7, Blood Urea Nitrogen 5L, Creatinine 1.1, Estimat Glomerular Filtration Rate > 60, Glucose Level 118H, Calcium Level 8.7, Phosphorus Level 3.7, Magnesium Level 1.8 Height (Feet): 5 Height (Inches): 9.00 Weight (Pounds): 210 General Appearance: alert, mild distress EENT: PERRL/EOMI Neck: non-tender, normal inspection Cardiovascular: normal rate, regular rhythm Respiratory/Chest: lungs clear, normal breath sounds Abdomen: normal bowel sounds, non tender, soft Extremities: non-tender, normal inspection Edema: 1+ Arm (L); no edema noted Arm (R), no edema noted Leg (L), no edema noted Leg (R) Neurologic: stock speculator II-XII grossly normal, oriented x 3 Skin: normal pigmentation, warm/dry Objective bilateral axillary surgical wounds in dressing, clean dry and intact. No purulence, edema noted. Mild Left UE swelling, improving. No paraesthesia. Assessment/Plan Status: stable Assessment/Plan: 35 year old gentleman with a PMH of hydradenitis suppurativa presents after surgery with Dr. Leal for bilateral axillary hidradenitis suppurativa construction for post op pain, wound drainage and hypoxia. #Bilateral hydradenitis suppurativa s/p reconstruction #Post-op pain #Surgical wound drainage #Leukocytosis - improving #Low garde post op fever 100F -added cefepime 04/10 and vancomycin given CXR of LLL consolidation Vs. Atelectasis per ID -Blood cultures x2 negative first 24 hours -Wound care -will arrange for outpatient wound vac -ISS, ambulation with assist -OUTBOARD MOTOR ASSEMBLER pump for pain control -Bowel regiment - miralax daily, senna, colace -PT/OT -Appreciate recs for Dr. Leal #Acute blood loss anemia -Trend CBC closely - Transfuse for Hg less than 7 #Mild Euvolemic Hyponatremia - resolved -Discontinue D5 1/2NS -Encouraged eating and drinking -AM labs GI: none Abx: vanc, cefepime Fluids: none Diet: regular DVT: Heparin 5000U BID Dispo: likely discharge with wound half-way health and wound vac on saturday/saturday I spent 35 minutes on this encounter with 20 minuted of care coordination and counseling. I discussed plan with Dr. Leal. I reviewed plan with RN and charge nurse. Discussed with pharmacy. Time of note does not reflect time patient was seen Wan Sanders D.O Apr 13, 2020 11:32
[2020-04-13 12:00] VITALS: BP 158/85
[2020-04-13] MEDS: Docusate 100mg cap ORAL SCH (12:04)
[2020-04-13] MEDS: Sennosides 8.6mg tab ORAL SCH (12:04)
--- NOTE | 2020-04-13 13:25 | General Progress Note ---
Progress Note Progress Note Pt seen and examined. Doing well. Wound vac in place. Patient will need outpatient wound vac change to the left lateral chest every 3 days and will need daily dressing changes to the axilla. Ambulate today and continue pain control. Appreciate ID input. Anastasiya Escobar MD Apr 13, 2020 13:25
[2020-04-13] MEDS ORDERED: ALPRAZolam 0.5mg tab ORAL PRN (13:45)
[2020-04-13] MEDS ORDERED: Rate Change PCA 1 Each MISC PRN (13:45)
[2020-04-13] MEDS ORDERED: Naloxone 0.4mg/ml Inj IVP PRN (13:45)
[2020-04-13] MEDS ORDERED: LORazepam 1mg tab ORAL PRN (13:45)
[2020-04-13] MEDS ORDERED: PCA HYDROmorphone 1mg/ml 30 ML IV PRN (13:45)
--- NOTE | 2020-04-13 14:02 | NUR ---
NURSE NOTES: New orders received from Dr. Leal. Orders read back and entered. Relayed to primary nurse Alice.
--- NOTE | 2020-04-13 15:00 | NUR ---
CASE MANAGEMENT: REVIEW 04/13/20 SI:S/P CLOSURE OF AXILLARY WOUNDS S/P BILATERAL AXILLARY EXCISION W/ FLAP ELEVATION SUPPER BILATERAL AXILLARY HYDRADENITIS STAGE III 98.2 102 18 128/82 96% ON RA k+3.4 bun 5 cl-118 IS:IV D5 @100ML/HR~dc when complete HEPARIN SQ BID IV ANCEF TID IV VANCOMYCIN TID TYLENOL PO Q4HR/PRN WOUND CARE \: 3E MED SURG UNIT DCP: HOME WHEN STABLE PLAN: ADVANCE DIET TOLERATED CONT ENCOURAGE 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 PT EVAL AND THERAPY RECOMMENDATION DVT PROPHYLAXIS ENCOURAGE AMBULATION Refer to rehab facility cont extensive wound care therapy Maintain proper care of wound vac machine
--- NOTE | 2020-04-13 15:44 | Diagnostic Imaging Report ---
Indication: Shortness of breath Technique: One view of the chest Comparison: 04/10/2020 Findings: Bilateral basilar and atelectatic changes persist. Retrocardiac consolidation may be slightly improved, but persistent. There are bilateral axillary surgical drains and left chest wall skin brianne noted. Impression: Persistent bilateral basilar atelectasis. Slightly improved retrocardiac consolidation
[2020-04-13 16:00] VITALS: BP 144/77
--- NOTE | 2020-04-13 17:24 | Infectious Diseases Prog Note ---
Assessment/Plan Assessment/Plan ASSESSMENT AND PLAN: 1. possible bilateral axilla wound infection, hidradenitis suppurativa, ? sepsis, pna, leukocytosis, fevers, s/p surgery - vancomycin, cefepime - day # 3 antibiotics - clinically stable, fevers and leukocytosis resolved - monitor labs and temps - wound management per Dr. Leal - continue per primary care team - chest x-ray improved 2. Hidradenitis suppurativa of the axilla, status post reconstruction, excision and wound closure, bilateral axilla. 3. Anemia. 4. Pain management per primary care team and consultants. 5. No history diabetes and hypertension. 6. No known drug allergies. 7. Social history is negative. 8. Family history is noncontributory. 9. MAR was noted. 10. Case was discussed with RN. Subjective Constitutional: Denies: fever HEENT: Denies: congestion Respiratory: Reports: shortness of breath - les Cardiovascular: Denies: chest pain Gastrointestinal/Abdominal: Denies: nausea, vomiting, diarrhea Genitourinary: Reports: other - no brown ; Denies: dysuria, hematuria Neurologic: Denies: headache Psychiatric: Denies: depression Skin: Reports: other - itching stable Hematologic: Denies: bleeding Musculoskeletal: Reports: pain - controlled Allergies: Coded Allergies: No Known Allergies (Unverified , 04/08/20) Objective Last 24 Hour Vital Signs Date Time Temp Pulse Resp B/P (MAP) Pulse Ox O2 Delivery O2 Flow Rate FiO2 04/13/20 16:00 98.2 91 18 144/77 (99) 95 04/13/20 12:00 98.5 100 18 158/85 (109) 98 04/13/20 11:22 98.2 04/13/20 09:00 Room Air 04/13/20 08:00 98.6 91 20 152/81 (104) 98 04/13/20 04:00 98.2 102 18 128/82 (97) 96 04/12/20 21:00 Room Air 04/12/20 20:00 98.6 105 19 129/76 (93) 95 04/12/20 20:00 105 19 95 Height (Feet): 5 Height (Inches): 9.00 Weight (Pounds): 210 General Appearance: no acute distress HEENT: normocephalic, atraumatic, anicteric, mucous membranes moist Respiratory/Chest: lungs clear, normal breath sounds, no respiratory distress, crackles/rales - left, other Cardiovascular: normal rate, regular rhythm, no gallop/murmur, no JVD Abdomen: normal bowel sounds, soft, non tender, no organomegaly, non distended Genitourinary: other - no brown Extremities: no cyanosis Skin: no rash Neurologic/Psychiatric: fringe knotter II-XII grossly normal, alert, responsive Lymphatic: no neck adenopathy Musculoskeletal: no effusion Chest x-ray - 04/13/20 - Procedure: XRAY Chest 1v Indication: Shortness of breath Technique: One view of the chest Comparison: 04/10/2020 Findings: Bilateral basilar and atelectatic changes persist. Retrocardiac consolidation may be slightly improved, but persistent. There are bilateral axillary surgical drains and left chest wall skin brianne noted. Impression: Persistent bilateral basilar atelectasis. Slightly improved retrocardiac consolidation Microbiology Date/Time Source Procedure Growth Status 04/10/20 13:25 Blood Blood Culture - Preliminary NO GROWTH AFTER 48 HOURS Resulted 04/06/20 11:06 Nasopharynx SARS-CoV-2 RdRp Gene Assay - Final Complete Laboratory Tests Test 04/12/20 18:45 04/13/20 09:15 Vancomycin Level Trough 9.2 ug/mL (5.0-12.0) White Blood Count 10.3 K/UL (4.8-10.8) Red Blood Count 3.48 M/UL (4.70-6.10) L Hemoglobin 10.6 G/DL (14.2-18.0) L Hematocrit 30.5 % (42.0-52.0) L Mean Corpuscular Volume 88 FL (80-99) Mean Corpuscular Hemoglobin 30.4 PG (27.0-31.0) Mean Corpuscular Hemoglobin Concent 34.6 G/DL (32.0-36.0) Red Cell Distribution Width 10.7 % (11.6-14.8) L Platelet Count 258 K/UL (150-450) Mean Platelet Volume 5.0 FL (6.5-10.1) L Neutrophils (%) (Auto) 78.3 % (45.0-75.0) H Lymphocytes (%) (Auto) 9.2 % (20.0-45.0) L Monocytes (%) (Auto) 7.7 % (1.0-10.0) Eosinophils (%) (Auto) 3.7 % (0.0-3.0) H Basophils (%) (Auto) 1.1 % (0.0-2.0) Sodium Level 139 MMOL/L (136-145) Potassium Level 3.4 MMOL/L (3.5-5.1) L Chloride Level 102 MMOL/L (98-107) Carbon Dioxide Level 30 MMOL/L (21-32) Anion Gap 7 mmol/L (5-15) Blood Urea Nitrogen 5 mg/dL (7-18) L Creatinine 1.1 MG/DL (0.55-1.30) Estimat Glomerular Filtration Rate > 60 mL/min (>60) Glucose Level 118 MG/DL (74-106) H Calcium Level 8.7 MG/DL (8.5-10.1) Phosphorus Level 3.7 MG/DL (2.5-4.9) Magnesium Level 1.8 MG/DL (1.8-2.4) Current Medications Medications (Trade) Dose Ordered Sig/Samanta Route PRN Reason Start Time Stop Time Status Last Admin Dose Admin Acetaminophen (Tylenol) 650 mg Q4H PRN ORAL FEVER 04/08/20 13:15 05/08/20 13:14 04/10/20 17:25 Alprazolam (Xanax) 1 mg HSPRN PRN ORAL For Anxiety 04/13/20 13:45 04/20/20 13:44 Cefepime HCl 2 gm/ Dextrose 55 ml @ 110 mls/hr Q8HR IV 04/11/20 22:00 04/18/20 21:59 04/13/20 15:43 Diphenhydramine HCl (Benadryl) 50 mg Q6H PRN IVP Itching 04/12/20 09:15 05/12/20 09:14 04/13/20 17:06 Docusate Sodium (Colace) 100 mg DAILY ORAL 04/13/20 11:30 05/13/20 11:29 04/13/20 12:04 Heparin Sodium (Porcine) (Heparin 5000 units/ml) 5,000 units EVERY 12 HOURS SUBQ 04/08/20 21:00 05/23/20 20:59 04/13/20 10:09 Hydromorphone HCl 30 ml @ 0 mls/hr Q24H PRN IV For Pain 04/13/20 13:45 04/15/20 13:44 Hydromorphone HCl (Dilaudid) 2 mg Q3H PRN IVP Severe Breakthru Pain (>7) 04/09/20 17:00 04/16/20 16:59 04/12/20 04:54 Lorazepam (Ativan) 1 mg Q4H PRN ORAL Muscle Spasm 04/13/20 13:45 04/15/20 15:29 Metoclopramide HCl (Reglan) 10 mg Q6H PRN IVP Nausea & Vomiting 04/11/20 13:26 05/11/20 13:25 Miscellaneous Medication (REAMING MACHINE OPERATOR FOR PLASTIC Rate Change) 1 ea DAILY PRN MISC rate change 04/13/20 13:45 04/15/20 13:44 Miscellaneous Medication (REAMING MACHINE OPERATOR FOR PLASTIC shift volume) 1 ea Q12HR@0700,1900 MISC 04/13/20 19:00 04/15/20 15:29 Naloxone HCl (Narcan) 0.1 mg Q1M PRN IVP RR<10/min OR SBP<90 mmHg 04/13/20 13:45 04/15/20 13:44 Ondansetron HCl (Zofran) 4 mg Q6H PRN IVP Nausea & Vomiting 04/13/20 13:45 04/15/20 13:44 Polyethylene Glycol (Miralax) 17 gm DAILY PRN ORAL Constipation 04/10/20 12:15 05/10/20 12:14 04/13/20 10:06 Sennosides (Senokot) 8.6 mg DAILY ORAL 04/13/20 11:30 05/13/20 11:29 04/13/20 12:04 Temazepam (RestoriL) 7.5 mg HSPRN PRN ORAL Insomnia 04/13/20 13:45 04/15/20 13:44 Vancomycin HCl (Vanco pharmacy to dose) 1 ea DAILY PRN MISC Per rx protocol 04/11/20 18:30 05/11/20 18:29 Vancomycin HCl 1 gm/Sodium Chloride 250 ml @ 167.007 mls/hr Q8H IVPB 04/12/20 21:00 04/17/20 20:59 04/13/20 13:19 Zolpidem Tartrate (Ambien) 5 mg DAILYPRN PRN ORAL Insomnia 04/11/20 13:30 04/18/20 13:29 Yg Moncada MD Apr 13, 2020 17:24
--- NOTE | 2020-04-13 19:30 | NUR ---
NURSE HAND-OFF: Important Events on Shift:[] Patient Status: [] Diet: [regular] Pending Orders: [] Pending Results/Labs:[] Pending MD notification:[] Latest Vital Signs: Temperature 98.2 , Pulse 91 , B/P 144 /77 , Respiratory Rate 18 , O2 SAT 95 , Room Air, O2 Flow Rate 3 . Vital Sign Comment: [] Latest Tong Fall Score: 35 Fall Risk: Medium Risk Safety Measures: Call light Within Reach, Bed Alarm Zone 2, Side Rails Side Rails x2, Bed position Low and Locked. Fall Precautions: Yellow Socks Patient Fall Education Report given to [RN Meryl Jones].
--- NOTE | 2020-04-13 19:38 | NUR ---
NURSE NOTES: Received report from SANTOS Jenkins. AAO x 4, on room air. 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 Pt wants to walk around. IV sites intact and patent. Wound Vac 175mmHg setting and small serosanguineous drain noted. MOISES drains in place on bilateral axillary and serosanguineous wound draining collected. Wound dressing d/i/c. MRSA swab collected on 04/12. Bed locked, lowest position, alarm on, side rails up, call light within reach. Will continue to monitor.
[2020-04-13 20:00] VITALS: BP 146/74
[2020-04-14] VITALS: BP 124/72
[2020-04-14 04:00] VITALS: BP_SYST 130; BP_SYST 141; BP_DIAS 80; BP_DIAS 84
--- NOTE | 2020-04-14 06:05 | NUR ---
NURSE NOTES: Pt has episode of confusion and hallucination. States I see two people walking in the room except . His said he is weird and confused. AAO x 4 and Vitals stable. Only new medication pt received was Xanax last night. Left message Dr. Leal and waiting for call back. Addendum: 04/14/20 at 0638 by KYMBERLY LA RN RN NURSE NOTES: Left message Dr. Shankar as well.
[2020-04-14] MEDS: Cefepime 2gm in D5W 55ml IV SCH ×3 (06:13→21:48)
[2020-04-14] MEDS: PCA shift volume MISC SCH ×2 (07:00→19:00)
--- NOTE | 2020-04-14 07:06 | NUR ---
NURSE HAND-OFF: Important Events on Shift:confusion, hallucination Patient Status: stable Diet: Reg Pending Orders: N Pending Results/Labs:AM labs Pending MD notification: Left message Dr. Shankar and Elvis Latest Vital Signs: Temperature 98.3 , Pulse 100 , B/P 141 /84 , Respiratory Rate 20 , O2 SAT 100 , Room Air, O2 Flow Rate 3 . Vital Sign Comment: [ Latest Tong Fall Score: 35 Fall Risk: Medium Risk Safety Measures: Call light Within Reach, Bed Alarm Zone 2, Side Rails Side Rails x2, Bed position Low and Locked. Fall Precautions: Yellow Socks Patient Fall Education Report given to []. Addendum: 04/14/20 at 0759 by KYMBERLY LA RN RN HAND-OFF: Report given to SANTOS Pulliam.
[2020-04-14 08:00] VITALS: BP_SYST 141; BP_SYST 151; BP_DIAS 84
--- NOTE | 2020-04-14 08:00 | NUR ---
NURSE NOTES: patient awake and alert and oriented,respirations unlabored.Noted bilateral axillary dressings clean and intact.J/P x 2 with serous sanguineous.Wound vac in place with small amount of serous sanguineous drainage noted.patient on Dilaudid COTTON BUYER.patient ate breakast.Voiding clear yellow urine.call light within reach.
[2020-04-14] MEDS: Docusate 100mg cap ORAL SCH ×2 (08:45→17:58)
[2020-04-14] MEDS: Sennosides 8.6mg tab ORAL SCH ×2 (08:45→17:57)
[2020-04-14] MEDS: Heparin 5000 units/ml inj SUBQ SCH ×2 (08:47→22:01)
--- NOTE | 2020-04-14 10:49 | General Progress Note ---
Subjective Date patient seen: Apr 14, 2020 ROS Limited/Unobtainable: No Constitutional: Reports: chills Allergies: Coded Allergies: No Known Allergies (Unverified , 04/08/20) All Systems: reviewed and negative except above Subjective had an issue with his IV access overnight causing him to be without pain meds for 4 hours which he noted to be intolerable. Was given xanax once late last night for anxiety as well. He was found standing in the corner of the room urinating by his and hallucinating about friends from back home. First episode ever per and patient, no hx of hallucinations in the past. Likley delirium from intractable pain plus benzo and poor sleep. Doing better this morning. Pain now controlled. Still no BM. Objective Last 24 Hour Vital Signs Date Time Temp Pulse Resp B/P (MAP) Pulse Ox O2 Delivery O2 Flow Rate FiO2 04/14/20 09:10 Room Air 04/14/20 08:00 99.0 95 18 151/84 (106) 98 04/14/20 08:00 100 20 100 04/14/20 04:00 98.3 100 20 141/84 (103) 100 04/14/20 00:00 99.7 95 20 124/72 (89) 94 04/13/20 21:00 Room Air 04/13/20 20:00 98.1 94 18 146/74 (98) 100 04/13/20 16:00 98.2 91 18 144/77 (99) 95 04/13/20 12:00 98.5 100 18 158/85 (109) 98 04/13/20 11:22 98.2 Intake and Output 04/13/20 04/14/20 19:00 07:00 Intake Total 2570 ml 360 ml Output Total 2350 ml 2513 ml Balance 220 ml -2153 ml Intake Oral 2570 ml 360 ml Output Urine Total 2200 ml 2400 ml Drainage Total 150 ml 113 ml Laboratory Tests 04/13/20 20:30: Vancomycin Level Trough 14.9H Height (Feet): 5 Height (Inches): 9.00 Weight (Pounds): 210 General Appearance: no apparent distress, alert EENT: PERRL/EOMI Neck: non-tender, supple Cardiovascular: normal rate, regular rhythm Respiratory/Chest: lungs clear, normal breath sounds, no respiratory distress Abdomen: non tender, soft Extremities: swelling, other - bilateral axillary surgical bandages in place, tender to movie Edema: 1+ Arm (L); no edema noted Arm (R), no edema noted Leg (L), no edema noted Leg (R), no edema noted Pedal (L), no edema noted Pedal (R), no edema noted Generalized Neurologic: ecd II-XII grossly normal, alert, oriented x 3 Skin: normal pigmentation, warm/dry Objective bilateral axillary surgical wounds in dressing, clean dry and intact. No purulence, edema noted. Mild Left UE swelling, improving. No paraesthesia. Assessment/Plan Status: stable Assessment/Plan: 35 year old gentleman with a PMH of hydradenitis suppurativa presents after surgery with Dr. Leal for bilateral axillary hidradenitis suppurativa construction for post op pain, wound drainage and hypoxia. #Bilateral hydradenitis suppurativa s/p reconstruction #Post-op pain #Surgical wound drainage #Leukocytosis - improving #Low garde post op fever 100F -added cefepime 04/10 and vancomycin given CXR of LLL consolidation Vs. Atelectasis per ID -Blood cultures x2 negative first 24 hours -Wound care -will arrange for outpatient wound vac -ISS, ambulation with assist -BALL MAKER pump for pain control -Bowel regiment - miralax daily, senna, colace -PT/OT - episode of hallucination today likely from severe pain, poor sleep and xanax. Will continue to monitor. Promote normal sleep/wake cycle. Improve ambulation. Pain now under control as there was issue last night with IV. -Appreciate recs for Dr. Leal #Acute blood loss anemia -Trend CBC closely - Transfuse for Hg less than 7 GI: none Abx: vanc, cefepime Fluids: none Diet: regular DVT: Heparin 5000U BID Dispo: likely discharge CRI with wound vac on saturday/saturday I spent 45 minutes on this encounter with 25 minuted of care coordination and counseling. I discussed plan with Dr. Leal. I reviewed plan with RN and charge nurse. Discussed with pharmacy. Time of note does not reflect time patient was seen Wan Sanders D.O Apr 14, 2020 10:48
[2020-04-14 12:00] VITALS: BP 162/87
[2020-04-14] MEDS: Miralax 17gm pkt ORAL SCH (12:20)
[2020-04-14] MEDS: DiphenhydrAMINE 50mg/ml Inj IVP PRN (12:21)
--- NOTE | 2020-04-14 13:05 | Infectious Diseases Prog Note ---
Assessment/Plan Assessment/Plan ASSESSMENT AND PLAN: 1. possible bilateral axilla wound infection, hidradenitis suppurativa, ? sepsis, pna, leukocytosis, fevers, s/p surgery left arm swelling - no obvious cellulitis or septic joints, + pulse - vancomycin, cefepime - day # 4 antibiotics - clinically stable, fevers and leukocytosis resolved - monitor labs and temps - wound management per Dr. Leal - continue per primary care team - chest x-ray improved 2. Hidradenitis suppurativa of the axilla, status post reconstruction, excision and wound closure, bilateral axilla. 3. Anemia. 4. Pain management per primary care team and consultants. 5. No history diabetes and hypertension. 6. No known drug allergies. 7. Social history is negative. 8. Family history is noncontributory. 9. MAR was noted. 10. Case was discussed with RN. Subjective Constitutional: Reports: fatigue; Denies: fever HEENT: Denies: congestion Respiratory: Denies: shortness of breath Cardiovascular: Denies: chest pain Gastrointestinal/Abdominal: Denies: nausea, vomiting Genitourinary: Reports: other - no brown Skin: Reports: other - no new rash Allergies: Coded Allergies: No Known Allergies (Unverified , 04/08/20) Objective Last 24 Hour Vital Signs Date Time Temp Pulse Resp B/P (MAP) Pulse Ox O2 Delivery O2 Flow Rate FiO2 04/14/20 12:00 97.6 94 20 162/87 (112) 98 04/14/20 09:10 Room Air 04/14/20 08:00 99.0 95 18 151/84 (106) 98 04/14/20 08:00 100 20 100 04/14/20 04:00 98.3 100 20 141/84 (103) 100 04/14/20 00:00 99.7 95 20 124/72 (89) 94 04/13/20 21:00 Room Air 04/13/20 20:00 98.1 94 18 146/74 (98) 100 04/13/20 16:00 98.2 91 18 144/77 (99) 95 Height (Feet): 5 Height (Inches): 9.00 Weight (Pounds): 210 General Appearance: no acute distress HEENT: normocephalic, atraumatic, anicteric, other - no thrush Respiratory/Chest: no respiratory distress, no accessory muscle use Cardiovascular: normal rate Abdomen: normal bowel sounds, soft, non tender Extremities: other - left arm swelling noted, no obvious cellulitis or septic joints Skin: other - wounds covered, no new rash Chest x-ray - 04/13/20 - Procedure: XRAY Chest 1v Indication: Shortness of breath Technique: One view of the chest Comparison: 04/10/2020 Findings: Bilateral basilar and atelectatic changes persist. Retrocardiac consolidation may be slightly improved, but persistent. There are bilateral axillary surgical drains and left chest wall skin brianne noted. Impression: Persistent bilateral basilar atelectasis. Slightly improved retrocardiac consolidation Microbiology Date/Time Source Procedure Growth Status 04/12/20 08:01 Nasal Not Otherwise Specified MRSA Culture - Final NO METHICILLIN RESISTANT STAPH AUREUS... Complete Laboratory Tests Test 04/13/20 20:30 Vancomycin Level Trough 14.9 ug/mL (5.0-12.0) H Current Medications Medications (Trade) Dose Ordered Sig/Samanta Route PRN Reason Start Time Stop Time Status Last Admin Dose Admin Acetaminophen (Tylenol) 650 mg Q4H PRN ORAL FEVER 04/08/20 13:15 05/08/20 13:14 04/10/20 17:25 Alprazolam (Xanax) 1 mg HSPRN PRN ORAL For Anxiety 04/13/20 13:45 04/20/20 13:44 04/13/20 20:36 Cefepime HCl 2 gm/ Dextrose 55 ml @ 110 mls/hr Q8HR IV 04/11/20 22:00 04/18/20 21:59 04/14/20 06:13 Diphenhydramine HCl (Benadryl) 50 mg Q6H PRN IVP Itching 04/12/20 09:15 05/12/20 09:14 04/14/20 12:21 Docusate Sodium (Colace) 100 mg BID ORAL 04/14/20 18:00 05/14/20 17:59 Heparin Sodium (Porcine) (Heparin 5000 units/ml) 5,000 units EVERY 12 HOURS SUBQ 04/08/20 21:00 05/23/20 20:59 04/14/20 08:47 Hydromorphone HCl 30 ml @ 0 mls/hr Q24H PRN IV For Pain 04/13/20 13:45 04/15/20 13:44 Hydromorphone HCl (Dilaudid) 2 mg Q3H PRN IVP Severe Breakthru Pain (>7) 04/09/20 17:00 04/16/20 16:59 04/12/20 04:54 Lorazepam (Ativan) 1 mg Q4H PRN ORAL Muscle Spasm 04/13/20 13:45 04/15/20 15:29 Metoclopramide HCl (Reglan) 10 mg Q6H PRN IVP Nausea & Vomiting 04/11/20 13:26 05/11/20 13:25 Miscellaneous Medication (ASSISTANT BOILER OPERATOR Rate Change) 1 ea DAILY PRN MISC rate change 04/13/20 13:45 04/15/20 13:44 Miscellaneous Medication (ASSISTANT BOILER OPERATOR shift volume) 1 ea Q12HR@0700,1900 MISC 04/13/20 19:00 04/15/20 15:29 04/14/20 07:00 Naloxone HCl (Narcan) 0.1 mg Q1M PRN IVP RR<10/min OR SBP<90 mmHg 04/13/20 13:45 04/15/20 13:44 Ondansetron HCl (Zofran) 4 mg Q6H PRN IVP Nausea & Vomiting 04/13/20 13:45 04/15/20 13:44 Polyethylene Glycol (Miralax) 17 gm DAILY ORAL 04/14/20 10:30 05/14/20 10:29 04/14/20 12:20 Sennosides (Senokot) 8.6 mg BID ORAL 04/14/20 18:00 05/14/20 17:59 Temazepam (RestoriL) 7.5 mg HSPRN PRN ORAL Insomnia 04/13/20 13:45 04/15/20 13:44 Vancomycin HCl (Vanco pharmacy to dose) 1 ea DAILY PRN MISC Per rx protocol 04/11/20 18:30 05/11/20 18:29 Vancomycin HCl 1 gm/Sodium Chloride 250 ml @ 167.007 mls/hr Q8H IVPB 04/12/20 21:00 04/17/20 20:59 04/14/20 04:13 Zolpidem Tartrate (Ambien) 5 mg DAILYPRN PRN ORAL Insomnia 04/11/20 13:30 04/18/20 13:29 Yg Moncada MD Apr 14, 2020 13:05
--- NOTE | 2020-04-14 15:05 | Diagnostic Imaging Report ---
EXAM: ULTRASOUND Venous Duplex Scan Bill Leg CLINICAL HISTORY: Leg pain and edema. COMPARISON: None TECHNIQUE: Doppler examination include grayscale images obtained with and without compression, and color and spectral doppler analysis. FINDINGS: Doppler examination shows normal spontaneity, phasicity, compressibility in the bilateral lower extremities. There is no thrombus identified by grayscale. Normal color and spectral flow is identified. There is no evidence of valvular incompetency or insufficiency. IMPRESSION: UNREMARKABLE VENOUS DUPLEX.
[2020-04-14 16:00] VITALS: BP 165/95
--- NOTE | 2020-04-14 16:13 | NUR ---
CASE MANAGEMENT: REVIEW 04/14/20 SI:S/P CLOSURE OF AXILLARY WOUNDS S/P BILATERAL AXILLARY EXCISION W/ FLAP ELEVATION SUPPER BILATERAL AXILLARY HYDRADENITIS STAGE III 99.7 95 20 124/72 94% ON RA IS:IV D5 @100ML/HR~dc when complete HEPARIN SQ BID IV ANCEF TID IV VANCOMYCIN TID TYLENOL PO Q4HR/PRN WOUND CARE THERAPY QD MANAGER DATABASE ADMINISTRATION DILAUDID \: 3E MED SURG UNIT DCP: HOME WHEN STABLE PLAN: ADVANCE DIET TOLERATED CONT ENCOURAGE 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 PT EVAL AND THERAPY RECOMMENDATION DVT PROPHYLAXIS ENCOURAGE AMBULATION Refer to rehab facility cont extensive wound care therapy Maintain proper care of wound vac machine FUNCTIONAL LIMITATION D/T BILATERAL WOUND VAC
--- NOTE | 2020-04-14 18:00 | NUR ---
NURSE NOTES: Patient resting,dressing changed ,,call light within reach.
--- NOTE | 2020-04-14 19:35 | NUR ---
NURSE HAND-OFF: TANGELA RN Important Events on Shift:[] CHISEL WORKER ,Wound vac,J/P drains x2 Patient Status: [] Diet: [Regular] Pending Orders: [] Pending Results/Labs:[] Pending MD notification:[] Latest Vital Signs: Temperature 97.9 , Pulse 94 , B/P 165 /95 , Respiratory Rate 20 , O2 SAT 98 , Room Air, O2 Flow Rate 3 . Vital Sign Comment: [] Latest Tong Fall Score: 35 Fall Risk: Medium Risk Safety Measures: Call light Within Reach, Bed Alarm Zone 2, Side Rails Side Rails x2, Bed position Low and Locked. Fall Precautions: Yellow Socks y Patient Fall Education y Report given to [].
[2020-04-14 20:00] VITALS: BP 134/90
--- NOTE | 2020-04-14 20:00 | NUR ---
NURSE NOTES: Receive a report from SANTOS Pulliam. Round is done. Pt is in bed, awake and alert. Pain is tolerating with using MID LEVEL PROVIDER pump as 6/10. Dressing on both axillary area kept dry and clean. No acute distress/respiratory distress noted. Wound Vac kept in place as ordered in good seal. Encourage I/S while aware. Call light within reach. Will continue to monitor.
--- NOTE | 2020-04-14 21:15 | NUR ---
NURSE NOTES: No chilling or febrile sensation. After given Tylenol, RODRIGUES decreased. IV on right FA intact without infiltration. Noted redness and warmth on left leg. Apply ice bag. Educate PROM and isometric exercise with rolling both ankles while in bed. Verbalizing understanding and demonstration. Will continue to monitor.
[2020-04-15] VITALS: BP 128/78
[2020-04-15 04:00] VITALS: BP 141/87
[2020-04-15] MEDS: Cefepime 2gm in D5W 55ml IV SCH ×3 (06:09→22:44)
[2020-04-15 06:43] LABS: EOSINOPHILS % (AUTO) 4.7 % (0.0-3.0); HEMATOCRIT 29.7 % (42.0-52.0); HEMOGLOBIN 10.4 G/DL (14.2-18.0); LYMPHOCYTES % (AUTO) 12.2 % (20.0-45.0); MEAN CORPUSCULAR VOLUME 88 FL (80-99); MONOCYTES % (AUTO) 7.5 % (1.0-10.0); NEUTROPHILS % (AUTO) 74.5 % (45.0-75.0); PLATELET COUNT 292 K/UL (150-450); RED BLOOD COUNT 3.39 M/UL (4.70-6.10); RED CELL DISTRIBUTION WIDTH 10.6 % (11.6-14.8); WHITE BLOOD COUNT 9.8 K/UL (4.8-10.8)
[2020-04-15 06:58] LABS: ALANINE AMINOTRANSFERASE 53 U/L (12-78); ALBUMIN 2.2 G/DL (3.4-5.0); ALBUMIN/GLOBULIN RATIO 0.7 (1.0-2.7); ALKALINE PHOSPHATASE 58 U/L (46-116); ANION GAP 3 mmol/L (5-15); ASPARTATE AMINO TRANSFERASE 50 U/L (15-37); BILIRUBIN,TOTAL 0.3 MG/DL (0.2-1.0); BLOOD UREA NITROGEN 7 mg/dL (7-18); CALCIUM 8.5 MG/DL (8.5-10.1); CARBON DIOXIDE 32 MMOL/L (21-32); CHLORIDE 105 MMOL/L (98-107); CREATININE 1.1 MG/DL (0.55-1.30); POTASSIUM 3.8 MMOL/L (3.5-5.1); SODIUM 140 MMOL/L (136-145)
[2020-04-15] MEDS: PCA shift volume MISC SCH (07:00)
--- NOTE | 2020-04-15 07:00 | NUR ---
NURSE HAND-OFF: Pain is tolerating with MUSHROOM FARMER. No itching noted at this time but wants to adjust Benadryl dose. Dressing kept dry and clean. No chilling or febrile sensation. Noted minimal output from Wound Vac. Slept overnight. No hallucination noted. MOISES output Right- 30ml/ Left-6ml Important Events on Shift: RODRIGUES, Pain on bilateral axilla-tolerating with MUSHROOM FARMER, mild itching Patient Status: stable Diet: regular Pending Orders: [] Pending Results/Labs:[CBC, CMP, Mg, Ph] Pending MD notification: follow up medication for RODRIGUES and adjusting Benadryl dose Latest Vital Signs: Temperature 97.9 , Pulse 81 , B/P 141 /87 , Respiratory Rate 18 , O2 SAT 98 , Room Air, O2 Flow Rate 3 . Vital Sign Comment: [] Latest Tong Fall Score: 35 Fall Risk: Medium Risk Safety Measures: Call light Within Reach, Bed Alarm Zone 2, Side Rails Side Rails x2, Bed position Low and Locked. Fall Precautions: Door Sign Patient Fall Education
--- NOTE | 2020-04-15 07:20 | NUR ---
HAND-OFF: Report given to SANTOS Love. Round is done. Endorse things to follow up and plans of care discussed.
--- NOTE | 2020-04-15 07:38 | NUR ---
NURSE NOTES: Received report from o RN, rounds made, pt in bed awake , a/ox4, breaths regular and unlabored on RA , pt c/o minimal pain at this time,3/ pt continues FORENSIC ARTIST Dilaudid for pain management , bilateral Axillary dressing clean intact, pt has a RT, forearm hand 20G locked, family by the bed side, bed in low locked position, side rails upX2, call light with in reach will continue to Monitor
[2020-04-15 08:08] LABS: PHOSPHORUS 4.4 MG/DL (2.5-4.9)
[2020-04-15] MEDS: Docusate 100mg cap ORAL SCH ×2 (08:52→18:00)
[2020-04-15] MEDS: Miralax 17gm pkt ORAL SCH (08:53)
[2020-04-15] MEDS: Heparin 5000 units/ml inj SUBQ SCH ×2 (08:55→21:11)
[2020-04-15] MEDS: Sennosides 8.6mg tab ORAL SCH ×2 (09:00→18:00)
[2020-04-15] MEDS ORDERED: DiphenhydrAMINE 50mg/ml Inj IVP PRN (09:44)
--- NOTE | 2020-04-15 09:46 | General Progress Note ---
Subjective Constitutional: Denies: no symptoms, chills, diaphoresis, fever, malaise, weakness, other HEENT: Denies: no symptoms, eye pain, blurred vision, tearing, double vision, ear pain, ear discharge, nose pain, nose congestion, throat pain, throat swelling, mouth pain, mouth swelling, other Cardiovascular: Denies: no symptoms, chest pain, edema, irregular heart rate, lightheadedness, palpitations, syncope, other Respiratory: Denies: no symptoms, cough, orthopnea, shortness of breath, SOB with excertion, SOB at rest, sputum, stridor, wheezing, other Gastrointestinal/Abdominal: Denies: no symptoms, abdomen distended, abdominal pain, black stools, tarry stools, blood in stool, constipated, diarrhea, difficulty swallowing, nausea, poor appetite, poor fluid intake, rectal bleeding, vomiting, other Genitourinary: Denies: no symptoms, burning, discharge, frequency, flank pain, hematuria, incontinence, pain, urgency, other Neurologic/Psychiatric: Denies: no symptoms, anxiety, depressed, emotional problems, headache, numbness, paresthesia, pre-existing deficit, seizure, tingling, tremors, weakness, other Allergies: Coded Allergies: No Known Allergies (Unverified , 04/08/20) Subjective no acute events overnight. Patient feels better today. Had two large BM. No fevers or chills. No sob, cough. Pain adequately controlled with morphine. Feels better today. Objective Last 24 Hour Vital Signs Date Time Temp Pulse Resp B/P (MAP) Pulse Ox O2 Delivery O2 Flow Rate FiO2 04/15/20 04:00 97.9 81 18 141/87 (105) 98 04/15/20 04:00 81 18 98 04/15/20 00:00 80 18 97 04/15/20 00:00 97.8 80 18 128/78 (95) 97 04/14/20 21:00 Room Air 04/14/20 20:00 98.0 93 18 134/90 (105) 97 04/14/20 20:00 93 20 97 04/14/20 16:00 97.9 86 18 165/95 (118) 99 04/14/20 16:00 94 20 98 04/14/20 12:00 94 20 98 04/14/20 12:00 97.6 94 20 162/87 (112) 98 Intake and Output 04/14/20 04/15/20 19:00 07:00 Intake Total 1840 ml 850 ml Output Total 1360 ml 2336 ml Balance 480 ml -1486 ml Intake Oral 1840 ml 850 ml Output Urine Total 1300 ml 2300 ml Drainage Total 60 ml 36 ml # Voids 4 4 Laboratory Tests 04/15/20 05:30: White Blood Count 9.8, Red Blood Count 3.39L, Hemoglobin 10.4L, Hematocrit 29.7L , Mean Corpuscular Volume 88, Mean Corpuscular Hemoglobin 30.5, Mean Corpuscular Hemoglobin Concent 34.8, Red Cell Distribution Width 10.6L, Platelet Count 292, Mean Platelet Volume 4.5L, Neutrophils (%) (Auto) 74.5, Lymphocytes (%) (Auto) 12.2L, Monocytes (%) (Auto) 7.5, Eosinophils (%) (Auto) 4.7H, Basophils (%) (Auto) 1.0, Sodium Level 140, Potassium Level 3.8, Chloride Level 105, Carbon Dioxide Level 32, Anion Gap 3L, Blood Urea Nitrogen 7, Creatinine 1.1, Estimat Glomerular Filtration Rate > 60, Glucose Level 99, Calcium Level 8.5, Phosphorus Level 4.4, Magnesium Level 2.0, Total Bilirubin 0.3, Aspartate Amino Transf (AST/SGOT) 50H, Alanine Aminotransferase (ALT/SGPT) 53, Alkaline Phosphatase 58, Total Protein 5.2L, Albumin 2.2L, Globulin 3.0, Albumin/Globulin Ratio 0.7L Height (Feet): 5 Height (Inches): 9.00 Weight (Pounds): 210 General Appearance: no apparent distress, alert EENT: PERRL/EOMI Neck: normal inspection Cardiovascular: normal rate, regular rhythm Abdomen: normal bowel sounds, non tender, soft Extremities: other - bilateral axillary surgery wound dressings clean dry, limited ROM but improving Edema: no edema noted Arm (L), no edema noted Arm (R), no edema noted Leg (L), no edema noted Leg (R), no edema noted Pedal (L), no edema noted Pedal (R), no edema noted Generalized Neurologic: immigration inspector II-XII grossly normal, oriented x 3 Skin: normal pigmentation, warm/dry Objective bilateral axillary surgical wounds in dressing, clean dry and intact. No purulence, edema noted. Mild Left UE swelling, improving. No paraesthesia. Assessment/Plan Status: stable Assessment/Plan: 35 year old gentleman with a PMH of hydradenitis suppurativa presents after surgery with Dr. Leal for bilateral axillary hidradenitis suppurativa construction for post op pain, wound drainage and hypoxia. #Bilateral hydradenitis suppurativa s/p reconstruction #Post-op pain #Surgical wound drainage #Leukocytosis - improving #Low garde post op fever 100F -continue vanc/cefepime per ID for possible SSTI and PNA -Blood cultures x2 negative first 48 hours -Wound care -will arrange for outpatient wound vac vs CRI -ISS, ambulation with assist -CRITICAL CARE CLINICAL NURSE SPECIALIST pump for pain control -Bowel regiment - miralax daily, senna, colace -PT/OT -Appreciate recs for Dr. Leal #Acute blood loss anemia -Trend CBC closely - Transfuse for Hg less than 7 #Delirium 2/2 multifactorial causes - resolved - 04/14 - overnight episode of hallucination likley from severe pain, new xanax med and poor sleep GI: none Abx: vanc, cefepime Fluids: none Diet: regular DVT: Heparin 5000U BID Dispo: likely discharge CRI with wound vac vs Home health w/ wound vac on saturday/saturday I spent 34 minutes on this encounter with 19 minuted of care coordination and counseling. I discussed plan with Dr. Leal. I reviewed plan with RN and CM. Discussed with pharmacy. Time of note does not reflect time patient was seen Wan Sanders D.O Apr 15, 2020 09:46
[2020-04-15 12:00] VITALS: BP 151/92
--- NOTE | 2020-04-15 12:19 | NUR ---
NURSE NOTES: Received order from Dr. Issa for STAT venous duplex of left UE d/t swelling. Called radiology and spoke with Yanni, per Yanni, [employer] tech will be informed of order SALVATORE. Relayed to primary nurse Ivan.
--- NOTE | 2020-04-15 12:21 | NUR ---
NURSE NOTES: Received call from vascular lab, lab aware of venous duplex order and will carry out.
--- NOTE | 2020-04-15 12:48 | NUR ---
RD ASSESSMENT & RECOMMENDATIONS SEE CARE ACTIVITY FOR COMPLETE ASSESSMENT DAILY ESTIMATED NEEDS: Needs based on wound/ 78.7kg 25-30 kcals/kg 2357-7829 total kcals 1.25-1.5 g protein/kg 98-118 g total protein 25-30 mL/kg 5831-1259 total fluid mLs NUTRITION DIAGNOSIS: Increased protein intake needs R/T wound healing as evidenced by h/o bilateral hydradenitis suppurativa as evidenced by s/p excision of bilateral axillary hydradenitis (04/08) and revision and closure of bilateral axillary wounds (04/11), w/ wound vac. CURRENT DIET:REGULAR PO DIET RECOMMENDATIONS: REGULAR diet as tolerated ADDITIONAL RECOMMENDATIONS: * Standing wt as able for accurate CBW * Wound healing: MVI x 1, Vit C 500mg QD, ZnSO4 220mg QD x 10 days Jose BID as tolerated * Monitor PO intake and tolerance closely * Monitor BM regularity: none since adm noted Prune juice BID added to tray
--- NOTE | 2020-04-15 13:43 | NUR ---
DISCHARGE PLANNING: NOTE PER LESLIE FARIA AT [facility] INSURANCE AUTH IS STILL PENDING. DCP: [facility] WITH HOME HEALTH WOUND VAC FORM PLACED IN CHART FOR SIGNATURE. [facility] OBTAINED INTERFACILITY MD HAND OFF FORM AND BEHAVIORAL CHECKLIST. THESE ITEMS PLACED IN CHART. Addendum: 04/15/20 at 1401 by Catie Chand CM PREVIOUS [facility] WILL HANDLE WOUND VAC ORDERS. ACCORDING TO CRN WOUND VAC WITH [facility] IS NOT AN AUTHORIZED PROVIDER. NO NOTES IN CHART TO INDICATE THAT REFERRAL TO [facility] FOR WOUND VAC HAS BEEN SIGNED OR SUBMITTED [facility] TO F/U
--- NOTE | 2020-04-15 14:15 | NUR ---
CASE MANAGEMENT: REVIEW 04/15/2020 SI;ACUTE POSTHEMORRHAGIC ANEMIA VS: T 98.1 HR 95 RR 18 B/P 151/92 SATS 98% ON RA LABS: AST 50 IS;HEPARIN SQ BID IV CEFEPIME IV Q8H IV VANCOMYCIN TID TYLENOL PO Q4HR/PRN COOK VACUUM KETTLE DILAUDID MED/SURG STATUS PLAN OF CARE: VENOUS DUPLEX
--- NOTE | 2020-04-15 14:23 | NUR ---
INSURANCE PROGRESS NOTES AND REVIEW FAXED TO #[phone]
--- NOTE | 2020-04-15 15:20 | NUR ---
Arlyn Note: Patient will benefit from acute rehab for strengthening and ROM exercises, bed mobility and transfer training, ADL retraining and gait training to increase independence and safety with all functional mobility and with performance of ADLs. Patient will be able to tolerate 3 hours of therapy, 5 days/week. Pt will also require OT services to address limitations ADL/self care tasks. Addendum: 04/15/20 at 1522 by RONEN LOMAS PT Amended: Links added.
[2020-04-15 15:39] VITALS: BP 147/84
[2020-04-15 15:40] VITALS: BP 147/84
--- NOTE | 2020-04-15 16:40 | Diagnostic Imaging Report ---
Indication: Arm edema status post axillary surgery Technique: Grayscale and duplex images of the left upper extremity veins Comparison: 04/11/2020 Findings: Bilaterally, grayscale and duplex images demonstrate no evidence of intraluminal thrombus. Normal phasic Doppler waveforms. Normal compressibility. Previously question abnormal left subclavian venous flow is not evident currently. Impression: Negative for evidence of left upper extremity venous thrombosis
--- NOTE | 2020-04-15 19:30 | NUR ---
NURSE NOTES: Receive a report from SANTOS Love. Round is done. Pt is awake and alert. No acute distress noted. Pain is tolerating with JEWELRY STORE MANAGER pump. Kept dressing on bilateral dry and clean. Bilateral JPs are in place with serosanguineous Wound Vac is on as ordered. Call light within reach. Will continue to monitor.
--- NOTE | 2020-04-15 19:40 | NUR ---
NURSE NOTES: Got endorsed for renewed order for CLEAT BLANKER pump from Dr. Sanders from nurse. Will continue to follow up.
[2020-04-15] MEDS ORDERED: PCA HYDROmorphone 1mg/ml 30 ML IV PRN (19:45)
[2020-04-15] MEDS ORDERED: Rate Change PCA 1 Each MISC PRN (19:45)
[2020-04-15] MEDS ORDERED: Naloxone 0.4mg/ml Inj IVP PRN (19:45)
[2020-04-15] MEDS ORDERED: LORazepam 1mg tab ORAL PRN (19:45)
--- NOTE | 2020-04-15 19:53 | NUR ---
NURSE HAND-OFF: Important Events on Shift: Patient Status: stable Diet: Regular Pending Orders: Pending Results/Labs: Pending MD notification: Latest Vital Signs: Temperature 97.4 , Pulse 81 , B/P 147 /84 , Respiratory Rate 18 , O2 SAT 98 , Room Air, O2 Flow Rate 3 . Vital Sign Comment: Latest Tong Fall Score: 35 Fall Risk: Medium Risk Safety Measures: Call light Within Reach, Bed Alarm Zone 2, Side Rails Side Rails x2, Bed position Low and Locked. Fall Precautions: Door Sign Patient Fall Education Report given to Pawel RN, .
[2020-04-15 20:00] VITALS: BP 152/80
--- NOTE | 2020-04-15 20:00 | NUR ---
NURSE NOTES: Noted swelling on left hand and arm. Kept elevated with pillow. MD aware. Will continue to monitor.
--- NOTE | 2020-04-15 21:56 | Infectious Diseases Prog Note ---
Assessment/Plan Assessment/Plan ASSESSMENT AND PLAN: 1. possible bilateral axilla wound infection, hidradenitis suppurativa, ? sepsis, pna, leukocytosis, fevers, s/p surgery left arm swelling - no obvious cellulitis or septic joints, + pulse - vancomycin, cefepime - day # 5 antibiotics - clinically stable, fevers and leukocytosis resolved - monitor labs and temps - wound management per Dr. Leal - continue per primary care team - chest x-ray improved - monitor left arm swelling 2. Hidradenitis suppurativa of the axilla, status post reconstruction, excision and wound closure, bilateral axilla. 3. Anemia. 4. Pain management per primary care team and consultants. 5. No history diabetes and hypertension. 6. No known drug allergies. 7. Social history is negative. 8. Family history is noncontributory. 9. MAR was noted. 10. Case was discussed with RN. Subjective Constitutional: Denies: fever HEENT: Denies: congestion Respiratory: Denies: shortness of breath Cardiovascular: Denies: chest pain Gastrointestinal/Abdominal: Denies: nausea, vomiting Genitourinary: Denies: dysuria, hematuria Neurologic: Denies: headache Psychiatric: Denies: depression Skin: Denies: rash Hematologic: Denies: bleeding Musculoskeletal: Reports: pain Allergies: Coded Allergies: No Known Allergies (Unverified , 04/08/20) Objective Last 24 Hour Vital Signs Date Time Temp Pulse Resp B/P (MAP) Pulse Ox O2 Delivery O2 Flow Rate FiO2 04/15/20 19:08 98 Room Air 21 04/15/20 15:40 81 18 98 04/15/20 15:39 97.4 89 18 147/84 (105) 100 04/15/20 12:00 98.1 95 18 151/92 (111) 98 04/15/20 12:00 81 18 98 04/15/20 11:40 98 Room Air 21 04/15/20 09:00 Room Air 04/15/20 04:00 97.9 81 18 141/87 (105) 98 04/15/20 04:00 81 18 98 04/15/20 00:00 80 18 97 04/15/20 00:00 97.8 80 18 128/78 (95) 97 Height (Feet): 5 Height (Inches): 9.00 Weight (Pounds): 210 General Appearance: no acute distress HEENT: normocephalic, atraumatic, anicteric, mucous membranes moist Respiratory/Chest: no respiratory distress, no accessory muscle use Cardiovascular: normal rate, regular rhythm Abdomen: normal bowel sounds, soft, non tender, no organomegaly, non distended Genitourinary: other - no brown Extremities: no cyanosis, other - left arm swelling noted, no obvious cellulitis Skin: no rash Neurologic/Psychiatric: road 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 Retrocardiac consolidation may be slightly improved, but persistent. There are bilateral axillary surgical drains and left chest wall skin brianne noted. Impression: Persistent bilateral basilar atelectasis. Slightly improved retrocardiac consolidation Microbiology Date/Time Source Procedure Growth Status 04/12/20 08:01 Nasal Not Otherwise Specified MRSA Culture - Final NO METHICILLIN RESISTANT STAPH AUREUS... Complete 04/10/20 13:25 Blood Blood Culture - Preliminary NO GROWTH AFTER 4 DAYS Resulted Laboratory Tests Test 04/15/20 05:30 White Blood Count 9.8 K/UL (4.8-10.8) Red Blood Count 3.39 M/UL (4.70-6.10) L Hemoglobin 10.4 G/DL (14.2-18.0) L Hematocrit 29.7 % (42.0-52.0) L Mean Corpuscular Volume 88 FL (80-99) Mean Corpuscular Hemoglobin 30.5 PG (27.0-31.0) Mean Corpuscular Hemoglobin Concent 34.8 G/DL (32.0-36.0) Red Cell Distribution Width 10.6 % (11.6-14.8) L Platelet Count 292 K/UL (150-450) Mean Platelet Volume 4.5 FL (6.5-10.1) L Neutrophils (%) (Auto) 74.5 % (45.0-75.0) Lymphocytes (%) (Auto) 12.2 % (20.0-45.0) L Monocytes (%) (Auto) 7.5 % (1.0-10.0) Eosinophils (%) (Auto) 4.7 % (0.0-3.0) H Basophils (%) (Auto) 1.0 % (0.0-2.0) Sodium Level 140 MMOL/L (136-145) Potassium Level 3.8 MMOL/L (3.5-5.1) Chloride Level 105 MMOL/L (98-107) Carbon Dioxide Level 32 MMOL/L (21-32) Anion Gap 3 mmol/L (5-15) L Blood Urea Nitrogen 7 mg/dL (7-18) Creatinine 1.1 MG/DL (0.55-1.30) Estimat Glomerular Filtration Rate > 60 mL/min (>60) Glucose Level 99 MG/DL (74-106) Calcium Level 8.5 MG/DL (8.5-10.1) Phosphorus Level 4.4 MG/DL (2.5-4.9) Magnesium Level 2.0 MG/DL (1.8-2.4) Total Bilirubin 0.3 MG/DL (0.2-1.0) Aspartate Amino Transf (AST/SGOT) 50 U/L (15-37) H Alanine Aminotransferase (ALT/SGPT) 53 U/L (12-78) Alkaline Phosphatase 58 U/L (46-116) Total Protein 5.2 G/DL (6.4-8.2) L Albumin 2.2 G/DL (3.4-5.0) L Globulin 3.0 g/dL Albumin/Globulin Ratio 0.7 (1.0-2.7) L Current Medications Medications (Trade) Dose Ordered Sig/Samanta Route PRN Reason Start Time Stop Time Status Last Admin Dose Admin Acetaminophen (Tylenol) 650 mg Q4H PRN ORAL FEVER 04/08/20 13:15 05/08/20 13:14 04/14/20 20:42 Alprazolam (Xanax) 1 mg HSPRN PRN ORAL For Anxiety 04/13/20 13:45 04/20/20 13:44 04/13/20 20:36 Cefepime HCl 2 gm/ Dextrose 55 ml @ 110 mls/hr Q8HR IV 04/11/20 22:00 04/18/20 21:59 04/15/20 15:27 Diphenhydramine HCl (Benadryl) 25 mg Q6H PRN IVP Itching 04/15/20 09:44 05/15/20 09:43 Docusate Sodium (Colace) 100 mg BID ORAL 04/14/20 18:00 05/14/20 17:59 04/15/20 08:52 Heparin Sodium (Porcine) (Heparin 5000 units/ml) 5,000 units EVERY 12 HOURS SUBQ 04/08/20 21:00 05/23/20 20:59 04/15/20 21:11 Hydromorphone HCl 30 ml @ 0 mls/hr Q24H PRN IV For Pain 04/15/20 19:45 04/17/20 19:44 Hydromorphone HCl (Dilaudid) 2 mg Q3H PRN IVP Severe Breakthru Pain (>7) 04/09/20 17:00 04/16/20 16:59 04/12/20 04:54 Ibuprofen (Motrin) 600 mg Q6H PRN ORAL headaches 04/15/20 09:44 05/15/20 09:43 Lorazepam (Ativan) 1 mg Q4H PRN ORAL Muscle Spasm 04/15/20 19:45 04/17/20 19:44 Metoclopramide HCl (Reglan) 10 mg Q6H PRN IVP Nausea & Vomiting 04/11/20 13:26 05/11/20 13:25 Miscellaneous Medication (DOOR FRAME BUILDER Rate Change) 1 ea DAILY PRN MISC rate change 04/15/20 19:45 04/17/20 19:44 Miscellaneous Medication (DOOR FRAME BUILDER shift volume) 1 ea Q12HR@0700,1900 MISC 04/16/20 07:00 04/18/20 06:59 Naloxone HCl (Narcan) 0.1 mg Q1M PRN IVP RR<10/min OR SBP<90 mmHg 04/15/20 19:45 04/17/20 19:44 Ondansetron HCl (Zofran) 4 mg Q6H PRN IVP Nausea & Vomiting 04/15/20 19:45 04/17/20 19:44 Polyethylene Glycol (Miralax) 17 gm DAILY ORAL 04/14/20 10:30 05/14/20 10:29 04/15/20 08:53 Sennosides (Senokot) 8.6 mg BID ORAL 04/14/20 18:00 05/14/20 17:59 04/14/20 17:57 Temazepam (RestoriL) 7.5 mg HSPRN PRN ORAL Insomnia 04/15/20 19:45 04/17/20 19:44 Vancomycin HCl ([facility] pharmacy to dose) 1 ea DAILY PRN MISC Per rx protocol 04/11/20 18:30 05/11/20 18:29 Vancomycin HCl 1 gm/Sodium Chloride 250 ml @ 167.007 mls/hr Q8H IVPB 04/12/20 21:00 04/17/20 20:59 04/15/20 12:24 Zolpidem Tartrate (Ambien) 5 mg DAILYPRN PRN ORAL Insomnia 04/11/20 13:30 04/18/20 13:29 Yg Moncada MD Apr 15, 2020 21:56
[2020-04-16] VITALS: BP 137/80
[2020-04-16 04:00] VITALS: BP 151/87
--- NOTE | 2020-04-16 05:14 | NUR ---
NURSE NOTES: REEL WINDER Dilaudid 11.2ml waste with unit RN and change a new syringe.
[2020-04-16 06:30] LABS: BASOPHILS % (AUTO) 1.2 % (0.0-2.0); EOSINOPHILS % (AUTO) 3.8 % (0.0-3.0); HEMATOCRIT 27.9 % (42.0-52.0); HEMOGLOBIN 9.9 G/DL (14.2-18.0); LYMPHOCYTES % (AUTO) 7.1 % (20.0-45.0); MEAN CORPUSCULAR VOLUME 87 FL (80-99); MONOCYTES % (AUTO) 7.9 % (1.0-10.0); NEUTROPHILS % (AUTO) 79.9 % (45.0-75.0); PLATELET COUNT 313 K/UL (150-450); RED BLOOD COUNT 3.22 M/UL (4.70-6.10); RED CELL DISTRIBUTION WIDTH 10.5 % (11.6-14.8); WHITE BLOOD COUNT 11.9 K/UL (4.8-10.8)
[2020-04-16 06:40] LABS: ANION GAP 7 mmol/L (5-15); BLOOD UREA NITROGEN 8 mg/dL (7-18); CALCIUM 8.9 MG/DL (8.5-10.1); CARBON DIOXIDE 27 MMOL/L (21-32); CHLORIDE 103 MMOL/L (98-107); SODIUM 137 MMOL/L (136-145)
[2020-04-16] MEDS ORDERED: PCA shift volume MISC SCH (07:00)
[2020-04-16] MEDS: Cefepime 2gm in D5W 55ml IV SCH ×3 (07:05→22:17)
--- NOTE | 2020-04-16 07:20 | NUR ---
NURSE HAND-OFF: Important Events on Shift: decreased left hand swelling Patient Status: stable Diet: regular Pending Orders: [] Pending Results/Labs:[] Pending MD notification:[] Output: MOISES-10ml(Rt) 35ml(Lt) Latest Vital Signs: Temperature 97.9 , Pulse 90 , B/P 124 /79 , Respiratory Rate 18 , O2 SAT 99 , Room Air, O2 Flow Rate 3 . Vital Sign Comment: [] Latest Tong Fall Score: 35 Fall Risk: Medium Risk Safety Measures: Call light Within Reach, Bed Alarm Zone 2, Side Rails Side Rails x2, Bed position Low and Locked. Fall Precautions: Yellow Gown Door Sign Patient Fall Education Report given to SANTOS Parks. Round is done.
[2020-04-16 08:00] VITALS: BP 124/79
--- NOTE | 2020-04-16 08:14 | NUR ---
NURSE NOTES: received pt from [facility], pt was sleeping, was at bedside, no c/o pain this time. Wound vac was in place with 175/Low/continuous. MOISES x2 was in place. will monitor
[2020-04-16] MEDS: Miralax 17gm pkt ORAL SCH (08:41)
[2020-04-16] MEDS: Sennosides 8.6mg tab ORAL SCH (08:49)
[2020-04-16] MEDS: Heparin 5000 units/ml inj SUBQ SCH ×2 (08:49→20:43)
[2020-04-16] MEDS: Docusate 100mg cap ORAL SCH (08:49)
[2020-04-16] MEDS ORDERED: HYDROcodone/Acetamin 10/325 tab ORAL PRN (09:00)
[2020-04-16] MEDS ORDERED: Morphine Sulfate 4mg/ml Inj (IV USE ONLY) IVP PRN (09:00)
--- NOTE | 2020-04-16 10:28 | General Progress Note ---
Subjective Date patient seen: Apr 16, 2020 Constitutional: Denies: chills, diaphoresis, fever, malaise, weakness HEENT: Denies: eye pain, blurred vision, tearing, double vision, ear pain, ear discharge, nose pain, nose congestion, throat pain, throat swelling, mouth pain, mouth swelling Cardiovascular: Denies: chest pain, edema, irregular heart rate, lightheadedness, palpitations, syncope Respiratory: Reports: cough; Denies: orthopnea, shortness of breath, SOB with excertion, SOB at rest, sputum, stridor, wheezing Gastrointestinal/Abdominal: Denies: abdomen distended, abdominal pain, black stools, tarry stools, blood in stool, constipated, diarrhea, difficulty swallowing, nausea, poor appetite, poor fluid intake, rectal bleeding, vomiting Genitourinary: Denies: burning, discharge, frequency, flank pain, hematuria, incontinence, pain, urgency Neurologic/Psychiatric: Denies: anxiety, depressed, emotional problems, headache, numbness, paresthesia, pre-existing deficit, seizure, tingling, tremors, weakness Endocrine: Denies: excessive sweating, flushing, intolerance to cold, intolerance to heat, increased hunger, increased thirst, increased urine, unexplained weight gain, unexplained weight loss Hematologic/Lymphatic: Denies: anemia, easy bleeding, easy bruising Allergies: Coded Allergies: No Known Allergies (Unverified , 04/08/20) Subjective no acute events overnight. Having good BM. Negative Left UE US. Swelling in left UE stable. Feeling more tired today, not getting adequate sleep at night as he is always being awoken. Will titrate off packing machine tender head buyer tobacco today and transition to orals. Objective Last 24 Hour Vital Signs Date Time Temp Pulse Resp B/P (MAP) Pulse Ox O2 Delivery O2 Flow Rate FiO2 04/16/20 08:27 Room Air 04/16/20 08:00 90 18 99 04/16/20 08:00 97.9 90 18 124/79 (94) 97 04/16/20 04:00 92 18 99 04/16/20 04:00 97.3 92 18 151/87 (108) 99 04/16/20 00:00 83 18 99 04/16/20 00:00 97.9 83 18 137/80 (99) 97 04/15/20 21:00 Room Air 04/15/20 20:00 93 18 99 04/15/20 20:00 98.6 93 18 152/80 (104) 99 04/15/20 19:08 98 Room Air 21 04/15/20 15:40 81 18 98 04/15/20 15:39 97.4 89 18 147/84 (105) 100 04/15/20 12:00 98.1 95 18 151/92 (111) 98 04/15/20 12:00 81 18 98 04/15/20 11:40 98 Room Air 21 Intake and Output 04/15/20 04/16/20 19:00 07:00 Output Total 1410 ml 1295 ml Balance -1410 ml -1295 ml Output Urine Total 1350 ml 1250 ml Drainage Total 60 ml 45 ml # Voids 4 # Bowel Movements 1 Laboratory Tests 04/16/20 05:45: White Blood Count 11.9H, Red Blood Count 3.22L, Hemoglobin 9.9L, Hematocrit 27.9L, Mean Corpuscular Volume 87, Mean Corpuscular Hemoglobin 30.8, Mean Corpuscular Hemoglobin Concent 35.5, Red Cell Distribution Width 10.5L, Platelet Count 313, Mean Platelet Volume 4.5L, Neutrophils (%) (Auto) 79.9H, Lymphocytes (%) (Auto) 7.1L, Monocytes (%) (Auto) 7.9, Eosinophils (%) (Auto) 3.8H, Basophils (%) (Auto) 1.2, Sodium Level 137, Potassium Level 4.0, Chloride Level 103, Carbon Dioxide Level 27, Anion Gap 7, Blood Urea Nitrogen 8, Creatinine 1.0, Estimat Glomerular Filtration Rate > 60, Glucose Level 96, Calcium Level 8.9, Phosphorus Level 4.0, Magnesium Level 2.0 Height (Feet): 5 Height (Inches): 9.00 Weight (Pounds): 210 General Appearance: no apparent distress, alert, lethargic EENT: PERRL/EOMI Neck: non-tender, supple Cardiovascular: normal rate, regular rhythm, no gallop/murmur Respiratory/Chest: lungs clear, normal breath sounds Abdomen: normal bowel sounds, non tender, no organomegaly Extremities: other - limited UE ROM, MOISES drains in place Edema: no edema noted Arm (L), no edema noted Arm (R), no edema noted Leg (L), no edema noted Leg (R), no edema noted Pedal (L), no edema noted Pedal (R), no edema noted Generalized Neurologic: editor continuity and script II-XII grossly normal, oriented x 3 Skin: normal pigmentation, warm/dry Objective bilateral axillary surgical wounds in dressing, clean dry and intact. No purulence, edema noted. Mild Left UE swelling, improving. No paraesthesia. Assessment/Plan Status: stable Assessment/Plan: 35 year old gentleman with a PMH of hydradenitis suppurativa presents after surgery with Dr. Leal for bilateral axillary hidradenitis suppurativa construction for post op pain, wound drainage and hypoxia. #Bilateral hydradenitis suppurativa s/p reconstruction #Post-op pain #Surgical wound drainage #Leukocytosis - improving #Low garde post op fever 100F -continue vanc/cefepime per ID for possible SSTI and PNA -Blood cultures x2 negative -Wound care -will arrange for outpatient wound vac vs CRI -ISS, ambulation with assist -d/c DIRECTOR LIFE SALES pump today; start oral pain meds -Bowel regiment - miralax daily, senna/colace prn - Left UE US negative for DVT; post-op swelling will continue to monitor -PT/OT -Appreciate recs for Dr. Leal #Acute blood loss anemia -Trend CBC closely - Transfuse for Hg less than 7 #Delirium 2/2 multifactorial causes - resolved - 04/14 - overnight episode of hallucination likley from severe pain, new xanax med and poor sleep GI: none Abx: vanc, cefepime Fluids: none Diet: regular DVT: Heparin 5000U BID Dispo: likely discharge CRI with wound vac vs Home health w/ wound vac on saturday/saturday, pending insurance/CRI evaluation still I spent 31 minutes on this encounter with 16 minuted of care coordination and counseling. I discussed plan with Dr. Leal. I reviewed plan with RN and CM. Discussed with pharmacy. Time of note does not reflect time patient was seen Wan Sanders D.O Apr 16, 2020 10:27
[2020-04-16] MEDS ORDERED: Sennosides 8.6mg tab ORAL PRN (10:30)
[2020-04-16] MEDS ORDERED: Docusate 100mg cap ORAL PRN (10:30)
[2020-04-16 12:00] VITALS: BP 159/85
--- NOTE | 2020-04-16 12:39 | NUR ---
CASE MANAGEMENT:REVIEW 04/16/20 SI: POD #8 AND POD #5 97.3 92 18 151/87 99% ON RA WBC+11.9 H/H-9.9/27.9 IS: IV VANCOMYCIN Q8 IV CEFEPIME Q8HRS IV DILAUDID Q3HRS PRN HEPARIN SQ Q12 : MED/SURG STATUS 3 EAST
[2020-04-16 16:00] VITALS: BP 139/79
--- NOTE | 2020-04-16 16:47 | NUR ---
NURSE NOTES: changed dressing clean and dry
--- NOTE | 2020-04-16 16:56 | NUR ---
PT Note Attempted to see patient x 2. In AM, RN advised to see patient later as she just assisted patient BTB. In PM, RN states that patient requested not to have any physical therapy.
[2020-04-16] MEDS ORDERED: NS 500ML ONE (17:56)
[2020-04-16] MEDS ORDERED: Tubing IV Secondary IV ONE (17:56)
[2020-04-16] MEDS ORDERED: NS 275ml ONE (17:56)
--- NOTE | 2020-04-16 19:22 | NUR ---
NURSE NOTES: Patient alert, awake, and oriented x 4. Family member acknowledged at the bedside. Breathing unlabored on room air without distress. Denies pain or discomfort at this time. Peripheral intravenous access noted on left hand dry, intact, and patent. Wound Vac noted on low and continuous pressure of 175mmhg. Wound Vac intact and dry dressings intact. Bed placed at the lowest with alarm, brake, and siderails up for safety. Call light placed within reach. Will continue to monitor.
--- NOTE | 2020-04-16 19:22 | NUR ---
HAND-OFF: Report given to SANTOS Stallworth. pt is stable condition.
[2020-04-16 20:00] VITALS: BP 123/82
[2020-04-16] MEDS: Zolpidem 5mg tab ORAL PRN (22:17)
[2020-04-17] VITALS: BP 141/88
[2020-04-17 04:00] VITALS: BP 138/81
[2020-04-17] MEDS: Cefepime 2gm in D5W 55ml IV SCH ×2 (05:35→15:07)
[2020-04-17 06:20] LABS: BASOPHILS % (AUTO) 0.9 % (0.0-2.0); EOSINOPHILS % (AUTO) 2.4 % (0.0-3.0); HEMATOCRIT 31.8 % (42.0-52.0); HEMOGLOBIN 11.1 G/DL (14.2-18.0); LYMPHOCYTES % (AUTO) 5.9 % (20.0-45.0); MEAN CORPUSCULAR VOLUME 87 FL (80-99); MONOCYTES % (AUTO) 6.7 % (1.0-10.0); PLATELET COUNT 354 K/UL (150-450); RED BLOOD COUNT 3.67 M/UL (4.70-6.10); RED CELL DISTRIBUTION WIDTH 10.8 % (11.6-14.8); WHITE BLOOD COUNT 15.7 K/UL (4.8-10.8)
[2020-04-17 06:43] LABS: ALANINE AMINOTRANSFERASE 265 U/L (12-78); ALBUMIN 2.5 G/DL (3.4-5.0); ALBUMIN/GLOBULIN RATIO 0.7 (1.0-2.7); ALKALINE PHOSPHATASE 86 U/L (46-116); ANION GAP 8 mmol/L (5-15); ASPARTATE AMINO TRANSFERASE 242 U/L (15-37); BILIRUBIN,TOTAL 0.4 MG/DL (0.2-1.0); BLOOD UREA NITROGEN 8 mg/dL (7-18); CALCIUM 8.9 MG/DL (8.5-10.1); CARBON DIOXIDE 24 MMOL/L (21-32); CHLORIDE 106 MMOL/L (98-107); POTASSIUM 3.8 MMOL/L (3.5-5.1); SODIUM 138 MMOL/L (136-145)
[2020-04-17] MEDS: HYDROcodone/Acetamin 5/325 tab ORAL PRN ×2 (06:59→21:08)
--- NOTE | 2020-04-17 07:20 | NUR ---
NURSE NOTES: received patient in bed, patient is awake,alert and oriented x 4.no sign of distress, on Room air , On going TKO for IV- atb, Wound Vac noted on low and continuous pressure of 175mmhg. bilaterral dressing on the axilla clean dryand intact, 4P's in progress ,Bed placed at the lowest with alarm, brake, and siderails up for safety. Call light placed within reach. Will continue to monitor. pancho melendrez
[2020-04-17 08:00] VITALS: BP 122/77
--- NOTE | 2020-04-17 08:03 | NUR ---
NURSE HAND-OFF: Important Events on Shift:No adverse event. Patient stable. Patient Status:Stable. Diet:Regular Diet Pending Orders:None Pending Results/Labs:CBC CMP Pending MD notification:None Latest Vital Signs: Temperature 97.4 , Pulse 89 , B/P 138 /81 , Respiratory Rate 20 , O2 SAT 99 , Room Air, O2 Flow Rate 3 . Vital Sign Comment:Stable Latest Tong Fall Score: 35 Fall Risk: Medium Risk Safety Measures: Call light Within Reach, Bed Alarm Zone 2, Side Rails Side Rails x2, Bed position Low and Locked. Fall Precautions: Yellow Gown Door Sign Patient Fall Education Report given to SANTOS Alexander. Addendum: 04/17/20 at 1037 by SHAYY GONZALEZ RN RN nurse notes seen by Dr Leal MOISES x2 dcd ,open to air, applied xeroform on the left axilla, tolerated the procedure well, kept clean dry and comfortable, santos meelndrez
[2020-04-17] MEDS: Miralax 17gm pkt ORAL SCH (09:00)
[2020-04-17] MEDS: Heparin 5000 units/ml inj SUBQ SCH ×2 (09:02→21:12)
[2020-04-17 09:49] LABS: CREATINE KINASE 77 U/L (26-308)
--- NOTE | 2020-04-17 10:55 | General Progress Note ---
Progress Note Progress Note Pt seen and examined. POD# 6 from closure of wounds. WBC is elevated. Flaps look good. Left arm swelling down. ID on board and evaluating. Once medically cleared would like for him to go to [facility] rehab. Will take down the wound vac tomorrow. MD Elvis Horan Amir MD Apr 17, 2020 10:55
[2020-04-17 11:16] LABS: APPEARANCE,URINE CLEAR; BILIRUBIN, URINE NEGATIVE (NEGATIVE); COLOR,URINE PALE YELLOW; GLUCOSE, URINE (UA) NEGATIVE (NEGATIVE); KETONES,URINE NEGATIVE (NEGATIVE); LEUKOCYTE ESTERASE ,URINE NEGATIVE (NEGATIVE); NITRITE,URINE NEGATIVE (NEGATIVE); PH,URINE 8 (4.5-8.0); PROTEIN,URINE NEGATIVE (NEGATIVE); UROBILINOGEN,URINE NORMAL MG/DL (0.0-1.0)
--- NOTE | 2020-04-17 11:42 | Diagnostic Imaging Report ---
EXAM: XR Chest, 1 View CLINICAL HISTORY: COUGH TECHNIQUE: Frontal view of the chest. COMPARISON: Chest radiograph on 04/13/2020 FINDINGS: Hardware: None. Lungs/pleura: Diffuse haziness in the left lung may represent artifact versus infectious/inflammatory process. Mild right basilar atelectasis. No pleural effusion or pneumothorax. Heart/mediastinum: Normal. No cardiomegaly. Soft tissues: Unremarkable. Bones: No acute fracture. Upper abdomen: Normal. IMPRESSION: Diffuse haziness in the left lung may represent artifact versus infectious/inflammatory process. Mild right basilar atelectasis.
--- NOTE | 2020-04-17 12:41 | NUR ---
CASE MANAGEMENT:REVIEW 04/17/20 SI: POD #9 AND POD #6 97.8 88 20 122/77 99% ON RA WBC+15.7 IS: IV VANCOMYCIN Q8 IV CEFEPIME Q8HRS IV DILAUDID Q3HRS PRN HEPARIN SQ Q12 : MED/SURG STATUS 3 EAST
[2020-04-17 12:42] VITALS: BP 118/65
--- NOTE | 2020-04-17 12:49 | General Progress Note ---
Subjective Date patient seen: Apr 17, 2020 Constitutional: Denies: chills, diaphoresis, fever, malaise, other HEENT: Denies: no symptoms, eye pain, blurred vision, tearing, double vision, ear pain, ear discharge, nose pain, nose congestion, throat pain, throat swelling, mouth pain, mouth swelling, other Cardiovascular: Denies: no symptoms, chest pain, edema, irregular heart rate, lightheadedness, palpitations, syncope, other Respiratory: Denies: no symptoms, cough, orthopnea, shortness of breath, SOB with excertion, SOB at rest, sputum, stridor, wheezing, other Gastrointestinal/Abdominal: Reports: diarrhea; Denies: no symptoms, abdomen distended, abdominal pain, black stools, tarry stools, blood in stool, constipated, difficulty swallowing, nausea, poor appetite, poor fluid intake, rectal bleeding, vomiting, other Genitourinary: Denies: no symptoms, burning, discharge, frequency, flank pain, hematuria, incontinence, pain, urgency, other Neurologic/Psychiatric: Denies: no symptoms, anxiety, depressed, emotional problems, headache, numbness, paresthesia, pre-existing deficit, seizure, tingling, tremors, weakness, other Endocrine: Denies: no symptoms, excessive sweating, flushing, intolerance to cold, intolerance to heat, increased hunger, increased thirst, increased urine, unexplained weight gain, unexplained weight loss, other Allergies: Coded Allergies: No Known Allergies (Unverified , 04/08/20) Subjective no acute events overnight. Patient noted to have 8-10 loose stools in last 24 hours. Feels dehydrated and tired. No fevers, chills, sob. Productive cough persist. Objective Last 24 Hour Vital Signs Date Time Temp Pulse Resp B/P (MAP) Pulse Ox O2 Delivery O2 Flow Rate FiO2 04/17/20 08:40 Room Air 04/17/20 08:00 97.8 88 20 122/77 (92) 99 04/17/20 06:45 99 Room Air 21 04/17/20 04:00 97.4 89 20 138/81 (100) 99 04/17/20 00:00 85 20 141/88 (105) 95 04/16/20 21:00 Room Air 04/16/20 21:00 99 Room Air 21 04/16/20 20:00 98.6 87 20 123/82 (96) 99 04/16/20 16:00 98.2 88 18 139/79 (99) 97 Intake and Output 04/16/20 04/17/20 18:59 06:59 Intake Total 450 ml 1210.000 ml Output Total 25 ml 30 ml Balance 425 ml 1180.000 ml Intake Oral 450 ml 600 ml IV Total 610.000 ml Drainage Total 25 ml 30 ml # Voids 4 3 # Bowel Movements 4 2 Laboratory Tests 04/17/20 05:50: White Blood Count 15.7H, Red Blood Count 3.67L, Hemoglobin 11.1L, Hematocrit 31.8L, Mean Corpuscular Volume 87, Mean Corpuscular Hemoglobin 30.1, Mean Corpuscular Hemoglobin Concent 34.8, Red Cell Distribution Width 10.8L, Platelet Count 354, Mean Platelet Volume 4.6L, Neutrophils (%) (Auto) 84.0H, Lymphocytes (%) (Auto) 5.9L, Monocytes (%) (Auto) 6.7, Eosinophils (%) (Auto) 2.4, Basophils (%) (Auto) 0.9, Sodium Level 138, Potassium Level 3.8, Chloride Level 106, Carbon Dioxide Level 24, Anion Gap 8, Blood Urea Nitrogen 8, Creatinine 1.0, Estimat Glomerular Filtration Rate > 60, Glucose Level 113H, Calcium Level 8.9, Total Bilirubin 0.4, Aspartate Amino Transf (AST/SGOT) 242H, Alanine Aminotransferase (ALT/SGPT) 265H, Alkaline Phosphatase 86, Total Creatine Kinase 77, Total Protein 5.9L, Albumin 2.5L, Globulin 3.4, Albumin/Globulin Ratio 0.7L 04/17/20 10:20: Urine Color Pale yellow, Urine Appearance Clear, Urine pH 8, Urine Specific [place] 1.010, Urine Protein Negative, Urine Glucose (UA) Negative, Urine Ketones Negative, Urine Blood Negative, Urine Nitrite Negative, Urine Bilirubin Negative, Urine Urobilinogen Normal, Urine Leukocyte Esterase Negative Height (Feet): 5 Height (Inches): 9.00 Weight (Pounds): 210 General Appearance: no apparent distress, alert, alert oriented x3 EENT: PERRL/EOMI Neck: non-tender, normal inspection Cardiovascular: normal rate, regular rhythm, no JVD Respiratory/Chest: lungs clear, normal breath sounds, no respiratory distress Abdomen: non tender, soft, hyperactive bowel sounds Extremities: other - limited ROM in UE, axillairy bandages in place Edema: 1+ Arm (L); no edema noted Arm (R), no edema noted Leg (L), no edema noted Leg (R) Neurologic: physical testing supervisor II-XII grossly normal, oriented x 3 Skin: normal pigmentation, warm/dry Objective bilateral axillary surgical wounds in dressing, clean dry and intact. No purulence, edema noted. Mild Left UE swelling, improving. No paraesthesia. Assessment/Plan Status: stable Assessment/Plan: 35 year old gentleman with a PMH of hydradenitis suppurativa presents after surgery with Dr. Leal for bilateral axillary hidradenitis suppurativa construction for post op pain, wound drainage and hypoxia. #Bilateral hydradenitis suppurativa s/p reconstruction # Elevated Leukocytosis # Transamntiis # Diarrhea -continue vanc/cefepime per ID for possible SSTI and PNA -f/u BC, UA, CXR and c.diff studies - fu/ hepatitis panel, abd -Wound care - IVF -will arrange for outpatient wound vac vs CRI -ISS, ambulation with assist -PT/OT -Appreciate recs for Dr. Leal #Acute blood loss anemia -Trend CBC closely - Transfuse for Hg less than 7 #Delirium 2/2 multifactorial causes - resolved - 04/14 - overnight episode of hallucination likley from severe pain, new xanax med and poor sleep GI: none Abx: vanc, cefepime Fluids: 150 cc NS Diet: regular DVT: Heparin 5000U BID Dispo: pending acceptance to [facility] and wound vac; leukocytosis and diarrhea work up ongoing I spent 45 minutes on this encounter with 25 minuted of care coordination and counseling. I discussed plan with Dr. Leal and Dr. Conway ( ID). I reviewed plan with RN and CM. Time of note does not reflect time patient was seen Wan Sanders D.O Apr 17, 2020 12:49
--- NOTE | 2020-04-17 16:01 | Diagnostic Imaging Report ---
EXAM: US Abdomen Complete CLINICAL HISTORY: ABN LABS TECHNIQUE: Real-time ultrasound of the abdomen with image documentation. COMPARISON: None FINDINGS: Liver: Liver measures 16.7 cm. No focal lesion. No intrahepatic bile duct dilation. Gallbladder: No gallstones or sludge. No gallbladder wall thickening or pericholecystic fluid. Common bile duct: Normal common bile duct measuring 5.3 mm. No stones. No dilation. Pancreas: Visualized portions of the pancreas are grossly unremarkable. Kidneys: Right kidney measures 10.4 cm in length. No hydronephrosis or stone. Left kidney measures 10.2 cm in length. No hydronephrosis or stone. Spleen: Spleen measures 9.6 cm. No focal lesion. Aorta: Visualized portions of the aorta are grossly unremarkable. Inferior vena cava: Visualized portions of the IVC are grossly unremarkable. Other vasculature: Patent main portal vein with normal direction of flow. Free fluid: No ascites. IMPRESSION: No acute findings in the abdomen.
[2020-04-17 16:06] VITALS: BP 129/66
--- NOTE | 2020-04-17 16:12 | NUR ---
PT Note RN states that patient just ambulated in the hallways with his . Advised to hold off on PT at this time.
--- NOTE | 2020-04-17 17:55 | NUR ---
nurse notes IV site is leaking dcd, tried to place new HL per patient later, ''will just call you once I'm ready, Relief charge nurse made aware to place anew HL SANTOS JAMES
--- NOTE | 2020-04-17 18:15 | NUR ---
nurse notes seen by Dr Dewitt Addendum: 04/17/20 at 1852 by SHAYY GONZALEZ RN RN entry not done
--- NOTE | 2020-04-17 18:51 | Infectious Diseases Prog Note ---
Assessment/Plan Assessment/Plan ASSESSMENT AND PLAN: 1. possible bilateral axilla wound infection, hidradenitis suppurativa, ? sepsis, pna, leukocytosis, fevers, s/p surgery left arm swelling - no obvious cellulitis or septic joints, + pulse worsen leukocytosis, diarrhea, ? c.diff., ? stool softeners, ? sepsis, ? fungal rash on lower back/buttocks, no typical for HZV/shingles - patient prefers oral antibiotics (has had 7 days iv vancomycin and cefepime) - will change to oral augmentin, bactrim - nystatin for possible fungal rash - f/u cultures, labs, c.diff. - monitor labs and temps - wound management per Dr. Leal - continue per primary care team - chest x-ray noted 2. Hidradenitis suppurativa of the axilla, status post reconstruction, excision and wound closure, bilateral axilla. 3. Anemia. 4. Pain management per primary care team and consultants. 5. No history diabetes and hypertension. 6. No known drug allergies. 7. Social history is negative. 8. Family history is noncontributory. 9. MAR was noted. 10. Case was discussed with RN. Subjective Constitutional: Reports: fatigue; Denies: fever HEENT: Denies: congestion Respiratory: Denies: shortness of breath Cardiovascular: Denies: chest pain Gastrointestinal/Abdominal: Reports: diarrhea, other - + stool softeners ; Denies: nausea, vomiting Genitourinary: Denies: dysuria, hematuria Neurologic: Denies: headache Psychiatric: Denies: depression Skin: Reports: other - lower back, buttocks Hematologic: Denies: bleeding Musculoskeletal: Denies: pain Allergies: Coded Allergies: No Known Allergies (Unverified , 04/08/20) Objective Last 24 Hour Vital Signs Date Time Temp Pulse Resp B/P (MAP) Pulse Ox O2 Delivery O2 Flow Rate FiO2 04/17/20 16:06 98.3 88 18 129/66 (87) 100 04/17/20 12:42 98.1 86 19 118/65 (82) 98 04/17/20 08:40 Room Air 04/17/20 08:00 97.8 88 20 122/77 (92) 99 04/17/20 06:45 99 Room Air 21 04/17/20 04:00 97.4 89 20 138/81 (100) 99 04/17/20 00:00 85 20 141/88 (105) 95 04/16/20 21:00 Room Air 04/16/20 21:00 99 Room Air 21 04/16/20 20:00 98.6 87 20 123/82 (96) 99 Height (Feet): 5 Height (Inches): 9.00 Weight (Pounds): 210 General Appearance: no acute distress HEENT: normocephalic, atraumatic, anicteric, mucous membranes moist Respiratory/Chest: lungs clear, normal breath sounds, no respiratory distress, no accessory muscle use Cardiovascular: normal rate, regular rhythm, no gallop/murmur, no JVD Abdomen: normal bowel sounds, soft, non tender, no organomegaly, non distended Genitourinary: other - no brown Extremities: no cyanosis Skin: rash - lower back, bilateral butticks - redness noted, no obvious herpetic lesions Neurologic/Psychiatric: proof carrier II-XII grossly normal, alert, oriented x 3, responsive Lymphatic: no neck adenopathy Musculoskeletal: no effusion Chest x-ray - 04/13/20 - Procedure: XRAY Chest 1v Indication: Shortness of breath Technique: One view of the chest Comparison: 04/10/2020 Findings: Bilateral basilar and atelectatic changes persist. Retrocardiac consolidation may be slightly improved, but persistent. There are bilateral axillary surgical drains and left chest wall skin brianne noted. Impression: Persistent bilateral basilar atelectasis. Slightly improved retrocardiac consolidation Chest x-ray - 04/17/20 - IMPRESSION: Diffuse haziness in the left lung may represent artifact versus infectious/inflammatory process. Mild right basilar atelectasis. Microbiology Date/Time Source Procedure Growth Status 04/12/20 08:01 Nasal Not Otherwise Specified MRSA Culture - Final NO METHICILLIN RESISTANT STAPH AUREUS... Complete 04/10/20 13:25 Blood Blood Culture - Preliminary NO GROWTH AFTER 4 DAYS Resulted Laboratory Tests Test 04/17/20 05:50 04/17/20 10:20 04/17/20 16:00 White Blood Count 15.7 K/UL (4.8-10.8) H Red Blood Count 3.67 M/UL (4.70-6.10) L Hemoglobin 11.1 G/DL (14.2-18.0) L Hematocrit 31.8 % (42.0-52.0) L Mean Corpuscular Volume 87 FL (80-99) Mean Corpuscular Hemoglobin 30.1 PG (27.0-31.0) Mean Corpuscular Hemoglobin Concent 34.8 G/DL (32.0-36.0) Red Cell Distribution Width 10.8 % (11.6-14.8) L Platelet Count 354 K/UL (150-450) Mean Platelet Volume 4.6 FL (6.5-10.1) L Neutrophils (%) (Auto) 84.0 % (45.0-75.0) H Lymphocytes (%) (Auto) 5.9 % (20.0-45.0) L Monocytes (%) (Auto) 6.7 % (1.0-10.0) Eosinophils (%) (Auto) 2.4 % (0.0-3.0) Basophils (%) (Auto) 0.9 % (0.0-2.0) Sodium Level 138 MMOL/L (136-145) Potassium Level 3.8 MMOL/L (3.5-5.1) Chloride Level 106 MMOL/L (98-107) Carbon Dioxide Level 24 MMOL/L (21-32) Anion Gap 8 mmol/L (5-15) Blood Urea Nitrogen 8 mg/dL (7-18) Creatinine 1.0 MG/DL (0.55-1.30) Estimat Glomerular Filtration Rate > 60 mL/min (>60) Glucose Level 113 MG/DL (74-106) H Calcium Level 8.9 MG/DL (8.5-10.1) Total Bilirubin 0.4 MG/DL (0.2-1.0) Aspartate Amino Transf (AST/SGOT) 242 U/L (15-37) H Alanine Aminotransferase (ALT/SGPT) 265 U/L (12-78) H Alkaline Phosphatase 86 U/L (46-116) Total Creatine Kinase 77 U/L (26-308) Total Protein 5.9 G/DL (6.4-8.2) L Albumin 2.5 G/DL (3.4-5.0) L Globulin 3.4 g/dL Albumin/Globulin Ratio 0.7 (1.0-2.7) L Urine Color Pale yellow Urine Appearance Clear Urine pH 8 (4.5-8.0) Urine Specific [place] 1.010 (1.005-1.035) Urine Protein Negative (NEGATIVE) Urine Glucose (UA) Negative (NEGATIVE) Urine Ketones Negative (NEGATIVE) Urine Blood Negative (NEGATIVE) Urine Nitrite Negative (NEGATIVE) Urine Bilirubin Negative (NEGATIVE) Urine Urobilinogen Normal MG/DL (0.0-1.0) Urine Leukocyte Esterase Negative (NEGATIVE) Hepatitis A IgM Antibody Pending Hepatitis B Surface Antigen Pending Hepatitis B Core IgM Antibody Pending Hepatitis C Antibody Pending Current Medications Medications (Trade) Dose Ordered Sig/Sam[place] Route PRN Reason Start Time Stop Time Status Last Admin Dose Admin Acetaminophen (Tylenol) 650 mg Q4H PRN ORAL FEVER 04/08/20 13:15 05/08/20 13:14 04/14/20 20:42 Acetaminophen/ Hydrocodone Bitart ([place] 10/325) 1 tab Q4H PRN ORAL Severe Pain (Pain Scale 7-10) 04/16/20 09:00 04/23/20 08:59 04/17/20 15:06 Acetaminophen/ Hydrocodone Bitart ([place] 5/325) 1 tab Q4H PRN ORAL Moderate Pain (Pain Scale 4-6) 04/16/20 09:00 04/23/20 08:59 04/17/20 06:59 Alprazolam (Xanax) 1 mg HSPRN PRN ORAL For Anxiety 04/13/20 13:45 04/20/20 13:44 04/13/20 20:36 Cefepime HCl 2 gm/ Dextrose 55 ml @ 110 mls/hr Q8HR IV 04/11/20 22:00 04/18/20 21:59 04/17/20 15:07 Diphenhydramine HCl (Benadryl) 25 mg Q6H PRN IVP Itching 04/15/20 09:44 05/15/20 09:43 Docusate Sodium (Colace) 100 mg DAILYPRN PRN ORAL constipation 04/16/20 10:30 05/16/20 10:29 Heparin Sodium (Porcine) (Heparin 5000 units/ml) 5,000 units EVERY 12 HOURS SUBQ 04/08/20 21:00 05/23/20 20:59 04/17/20 09:02 Ibuprofen (Motrin) 600 mg Q6H PRN ORAL headaches 04/15/20 09:44 05/15/20 09:43 Metoclopramide HCl (Reglan) 10 mg Q6H PRN IVP Nausea & Vomiting 04/11/20 13:26 05/11/20 13:25 Morphine Sulfate (Morphine Sulfate) 4 mg Q6H PRN IVP Severe Breakthru Pain (>7) 04/16/20 09:00 04/23/20 08:59 Sennosides (Senokot) 8.6 mg DAILYPRN PRN ORAL Constipation 04/16/20 10:30 05/16/20 10:29 Sodium Chloride 1,000 ml @ 150 mls/hr Q6H40M IV 04/17/20 09:30 05/17/20 09:29 04/17/20 15:52 Vancomycin HCl (Vanco pharmacy to dose) 1 ea DAILY PRN MISC Per rx protocol 04/11/20 18:30 05/11/20 18:29 Vancomycin HCl 1 gm/Sodium Chloride 250 ml @ 167.007 mls/hr 0500,1300,2100 IVPB 04/15/20 23:30 04/20/20 23:29 04/17/20 12:54 Zolpidem Tartrate (Ambien) 5 mg DAILYPRN PRN ORAL Insomnia 04/16/20 22:15 04/23/20 22:14 04/16/20 22:17 Yg Moncada MD Apr 17, 2020 18:51
--- NOTE | 2020-04-17 18:52 | NUR ---
NURSE HAND-OFF: Important Events on Shift:[Chest X ray , ultra sound abdomen done , urine and stool specimen sent to [facility] post op site open to air] Patient Status: [IMPROVING] Diet: [REGULAR DIET] Pending Orders: [labs in am] Pending Results/Labs:[none] Pending MD notification:[none] Latest Vital Signs: Temperature 98.3 , Pulse 88 , B/P 129 /66 , Respiratory Rate 18 , O2 SAT 100 , Room Air, O2 Flow Rate 3 . Vital Sign Comment: [stable] Latest Tong Fall Score: 35 Fall Risk: Medium Risk Safety Measures: Call light Within Reach, Bed Alarm Zone 2, Side Rails Side Rails x2, Bed position Low and Locked. Fall Precautions: Patient Fall Education AMBULATE ON THE HALLWAY ACCOMPANIED BY Patient IV site was leaking refused IV reinsertion, seen by Dr Ivan per MD , HE will change IV atb to PO Report given to [NOC shift RN]. SANTOS JAMES Addendum: 04/17/20 at 1936 by SHAYY GONZALEZ RN RN NURSE HAND-OFF: Important Events on Shift:[Chest X ray , ultra sound abdomen done , urine and stool specimen sent to [facility] post op site open to air] Patient Status: [IMPROVING] Diet: [REGULAR DIET] Pending Orders: [labs in am] Pending Results/Labs:[none] Pending MD notification:[none] Latest Vital Signs: Temperature 98.3 , Pulse 88 , B/P 129 /66 , Respiratory Rate 18 , O2 SAT 100 , Room Air, O2 Flow Rate 3 . Vital Sign Comment: [stable] Latest Tong Fall Score: 35 Fall Risk: Medium Risk Safety Measures: Call light Within Reach, Bed Alarm Zone 2, Side Rails Side Rails x2, Bed position Low and Locked. Fall Precautions: Patient Fall Education AMBULATE ON THE HALLWAY ACCOMPANIED BY Patient IV site was leaking refused IV reinsertion, seen by Dr Ivan per MD , HE will change IV atb to PO Report given to [Fabian GRAHAM NOC NURSE ACCORDINGLY]. SANTOS JAMES
--- NOTE | 2020-04-17 19:54 | NUR ---
NURSE NOTES: Patient in bed, awake and alert x4. On room air with no signs of distress or SOB. No IV access at this time; patient refused per AM nurse. MD aware. Axillary wound dressing clean dry and intact. at bedside. Bed locked and in lowest position. Call light in reach. Will continue plan of care.
[2020-04-17 20:00] VITALS: BP 130/68
[2020-04-17] MEDS: Augmentin 875mg Tab ORAL SCH (21:16)
[2020-04-18] MEDS: Zolpidem 5mg tab ORAL PRN ×2 (03:18→21:25)
[2020-04-18 04:00] VITALS: BP 156/82
[2020-04-18 05:56] LABS: BASOPHILS % (AUTO) 2.2 % (0.0-2.0); EOSINOPHILS % (AUTO) 3.8 % (0.0-3.0); HEMATOCRIT 30.5 % (42.0-52.0); HEMOGLOBIN 10.6 G/DL (14.2-18.0); LYMPHOCYTES % (AUTO) 12.6 % (20.0-45.0); MEAN CORPUSCULAR VOLUME 87 FL (80-99); MONOCYTES % (AUTO) 10.3 % (1.0-10.0); NEUTROPHILS % (AUTO) 71.2 % (45.0-75.0); PLATELET COUNT 347 K/UL (150-450); RED CELL DISTRIBUTION WIDTH 11.3 % (11.6-14.8)
[2020-04-18 06:17] LABS: ALANINE AMINOTRANSFERASE 302 U/L (12-78); ALBUMIN 2.5 G/DL (3.4-5.0); ALBUMIN/GLOBULIN RATIO 0.6 (1.0-2.7); ALKALINE PHOSPHATASE 75 U/L (46-116); ANION GAP 11 mmol/L (5-15); ASPARTATE AMINO TRANSFERASE 212 U/L (15-37); BILIRUBIN,TOTAL 0.3 MG/DL (0.2-1.0); BLOOD UREA NITROGEN 7 mg/dL (7-18); CALCIUM 8.5 MG/DL (8.5-10.1); CARBON DIOXIDE 23 MMOL/L (21-32); CHLORIDE 109 MMOL/L (98-107); PHOSPHORUS 3.4 MG/DL (2.5-4.9); POTASSIUM 3.7 MMOL/L (3.5-5.1); SODIUM 143 MMOL/L (136-145)
--- NOTE | 2020-04-18 06:50 | NUR ---
NURSE HAND-OFF: Important Events on Shift: N/A Patient Status: Stable Diet: Regular Pending Orders: Sputum sample to be collected Pending Results/Labs: CBC, CMP, Mag, Phos Pending MD notification: N/A Latest Vital Signs: Temperature 98.1 , Pulse 84 , B/P 156 /82 , Respiratory Rate 18 , O2 SAT 97 , Room Air, O2 Flow Rate 3 . Vital Sign Comment: Latest Tong Fall Score: 35 Fall Risk: Medium Risk Safety Measures: Call light Within Reach, Bed Alarm Zone 2, Side Rails Side Rails x2, Bed position Low and Locked. Fall Precautions: Yellow Gown Door Sign Patient Fall Education Addendum: 04/18/20 at 0738 by JOHN MOONEY RN Report given to SANTOS Juarez
--- NOTE | 2020-04-18 07:45 | NUR ---
NURSE NOTES: Patient asleep in bed, On room air with no signs of distress or SOB. at bedside. No IV access at this time. Axillary wound dressing clean dry and intact. Wound Vac noted, checked setting. Bed locked and in lowest position. Call light in reach. Will continue plan of care.
[2020-04-18 08:00] VITALS: BP 137/76
[2020-04-18] MEDS: Augmentin 875mg Tab ORAL SCH ×2 (08:35→21:18)
[2020-04-18] MEDS: Heparin 5000 units/ml inj SUBQ SCH ×2 (08:43→21:22)
[2020-04-18] MEDS ORDERED: Bactrim-DS 1 tab ORAL SCH (09:00)
[2020-04-18] MEDS: HYDROcodone/Acetamin 5/325 tab ORAL PRN ×2 (10:37→23:37)
--- NOTE | 2020-04-18 11:49 | General Progress Note ---
Subjective Date patient seen: Apr 18, 2020 Constitutional: Denies: no symptoms, chills, diaphoresis, fever, malaise, weakness, other HEENT: Denies: no symptoms, eye pain, blurred vision, tearing, double vision, ear pain, ear discharge, nose pain, nose congestion, throat pain, throat swelling, mouth pain, mouth swelling, other Cardiovascular: Denies: no symptoms, chest pain, edema, irregular heart rate, lightheadedness, palpitations, syncope, other Respiratory: Denies: no symptoms, cough, orthopnea, shortness of breath, SOB with excertion, SOB at rest, sputum, stridor, wheezing, other Gastrointestinal/Abdominal: Denies: no symptoms, abdomen distended, abdominal pain, black stools, tarry stools, blood in stool, constipated, diarrhea, difficulty swallowing, nausea, poor appetite, poor fluid intake, rectal bleeding, vomiting, other Genitourinary: Denies: no symptoms, burning, discharge, frequency, flank pain, hematuria, incontinence, pain, urgency, other Neurologic/Psychiatric: Denies: no symptoms, anxiety, depressed, emotional problems, headache, numbness, paresthesia, pre-existing deficit, seizure, tingling, tremors, weakness, other Endocrine: Denies: no symptoms, excessive sweating, flushing, intolerance to cold, intolerance to heat, increased hunger, increased thirst, increased urine, unexplained weight gain, unexplained weight loss, other Allergies: Coded Allergies: No Known Allergies (Unverified , 04/08/20) Subjective no acute events overnight. Feels better today. Diarrhea has resolved. No fevers, chills. Minimal Pain. Objective Last 24 Hour Vital Signs Date Time Temp Pulse Resp B/P (MAP) Pulse Ox O2 Delivery O2 Flow Rate FiO2 04/18/20 09:00 Room Air 04/18/20 08:00 98.5 83 20 137/76 (96) 98 04/18/20 04:00 98.1 84 18 156/82 (106) 97 04/17/20 20:30 Room Air 04/17/20 20:00 98.0 84 16 130/68 (88) 99 04/17/20 19:30 97 Room Air 21 04/17/20 16:06 98.3 88 18 129/66 (87) 100 9/27/20 12:42 98.1 86 19 118/65 (82) 98 Intake and Output 04/17/20 04/18/20 19:00 07:00 Intake Total 1605 ml 400 ml Output Total 2080 ml 600 ml Balance -475 ml -200 ml Intake Oral 700 ml 400 ml IV Total 905 ml Output Urine Total 2050 ml 600 ml Drainage Total 30 ml 0 ml # Voids 5 4 # Bowel Movements 3 Laboratory Tests 04/17/20 16:00: Hepatitis A IgM Antibody [Pending], Hepatitis B Surface Antigen [Pending], Hepatitis B Core IgM Antibody [Pending], Hepatitis C Antibody [Pending] 04/18/20 05:35: White Blood Count 12.0H, Red Blood Count 3.50L, Hemoglobin 10.6L, Hematocrit 30.5L, Mean Corpuscular Volume 87, Mean Corpuscular Hemoglobin 30.2, Mean Corpuscular Hemoglobin Concent 34.7, Red Cell Distribution Width 11.3L, Platelet Count 347, Mean Platelet Volume 4.7L, Neutrophils (%) (Auto) 71.2, Lymphocytes (%) (Auto) 12.6L, Monocytes (%) (Auto) 10.3H, Eosinophils (%) (Auto) 3.8H, Basophils (%) (Auto) 2.2H, Sodium Level 143, Potassium Level 3.7, Chloride Level 109H, Carbon Dioxide Level 23, Anion Gap 11, Blood Urea Nitrogen 7, Creatinine 1.0, Estimat Glomerular Filtration Rate > 60, Glucose Level 101, Calcium Level 8.5, Phosphorus Level 3.4, Magnesium Level 2.0, Total Bilirubin 0.3, Aspartate Amino Transf (AST/SGOT) 212H, Alanine Aminotransferase (ALT/SGPT) 302H, Alkaline Phosphatase 75, Total Protein 6.6, Albumin 2.5L, Globulin 4.1, Albumin/Globulin Ratio 0.6L Height (Feet): 5 Height (Inches): 9.00 Weight (Pounds): 210 General Appearance: no apparent distress, alert oriented x3 EENT: PERRL/EOMI Neck: non-tender, normal inspection Cardiovascular: normal rate, regular rhythm, no JVD Respiratory/Chest: lungs clear, normal breath sounds Abdomen: normal bowel sounds, non tender, soft Extremities: normal range of motion, other - bilateral UE axillary bandages in placed Edema: no edema noted Arm (L), no edema noted Arm (R), no edema noted Leg (L), no edema noted Leg (R), no edema noted Pedal (L), no edema noted Pedal (R), no edema noted Generalized Neurologic: mechanical maintenance II-XII grossly normal, oriented x 3 Objective bilateral axillary surgical wounds in dressing, clean dry and intact. No purulence, edema noted. Mild Left UE swelling, improving. No paraesthesia. Assessment/Plan Status: stable Assessment/Plan: 35 year old gentleman with a PMH of hydradenitis suppurativa presents after surgery with Dr. Leal for bilateral axillary hidradenitis suppurativa construction for post op pain, wound drainage and hypoxia. #Bilateral hydradenitis suppurativa s/p reconstruction # Elevated Leukocytosis - improving # Transamntiis # Diarrhea - resolved -continue augmentin, bactrim per ID for possible SSTI and PNA -f/u BC, hep panel - UA and Cdiff neg - UA abd negative for acute/chronic changes -Wound care - IVF -will arrange for outpatient wound vac vs CRI -ISS, ambulation with assist -PT/OT -Appreciate recs for Dr. Leal #Acute blood loss anemia -Trend CBC closely - Transfuse for Hg less than 7 #Delirium 2/2 multifactorial causes - resolved - 04/14 - overnight episode of hallucination likley from severe pain, new xanax med and poor sleep GI: none Abx: augmentin, bactrim Fluids: 75 cc NS Diet: regular DVT: Heparin 5000U BID Dispo: pending [facility] to [facility] and wound vac I spent 43 minutes on this encounter with 25 minuted of care coordination and counseling. I discussed plan with Dr. Leal and Dr. Conway ( ID). I reviewed plan with RN and CM. Time of note does not reflect time patient was seen Wan Sanders D.O Apr 18, 2020 11:48
[2020-04-18 12:00] VITALS: BP 130/77
--- NOTE | 2020-04-18 12:00 | General Progress Note ---
Progress Note Progress Note Pt seen and examined. Doing well. Walking around. Flaps viable. Wound vac removed. WBC down to 12. Elevated LFTs still. Workup in process. Waiting on rehab transfer. Can shower today and dc by tomorrow AM to rehab. Anastasiya Escobar MD, MD Apr 18, 2020 12:00
--- NOTE | 2020-04-18 13:20 | Infectious Diseases Prog Note ---
Assessment/Plan Assessment/Plan ASSESSMENT AND PLAN: 1. possible bilateral axilla wound infection, hidradenitis suppurativa, ? sepsis, pna, leukocytosis, fevers, s/p surgery left arm swelling - no obvious cellulitis or septic joints, + pulse worsen leukocytosis, diarrhea, ? c.diff., ? stool softeners, ? sepsis, ? fungal rash on back/buttocks, ? drug rash, not typical for HZV/shingles without one sided dermatomal distribution - oral augmentin and bactrim x 7 days - nystatin for possible fungal rash - f/u cultures, labs, c.diff. - monitor labs and temps - wound management per Dr. Leal - continue per primary care team - chest x-ray noted 2. Hidradenitis suppurativa of the axilla, status post reconstruction, excision and wound closure, bilateral axilla. 3. Anemia. 4. Pain management per primary care team and consultants. 5. No history diabetes and hypertension. 6. No known drug allergies. 7. Social history is negative. 8. Family history is noncontributory. 9. MAR was noted. 10. Case was discussed with RN. Subjective Constitutional: Denies: fever HEENT: Denies: congestion Respiratory: Denies: shortness of breath Cardiovascular: Denies: chest pain Gastrointestinal/Abdominal: Denies: diarrhea Allergies: Coded Allergies: No Known Allergies (Unverified , 04/08/20) Objective Last 24 Hour Vital Signs Date Time Temp Pulse Resp B/P (MAP) Pulse Ox O2 Delivery O2 Flow Rate FiO2 04/18/20 11:07 98.5 04/18/20 09:00 Room Air 04/18/20 08:00 98.5 83 20 137/76 (96) 98 04/18/20 04:00 98.1 84 18 156/82 (106) 97 04/17/20 20:30 Room Air 04/17/20 20:00 98.0 84 16 130/68 (88) 99 04/17/20 19:30 97 Room Air 21 04/17/20 16:06 98.3 88 18 129/66 (87) 100 Height (Feet): 5 Height (Inches): 9.00 Weight (Pounds): 210 General Appearance: no acute distress HEENT: normocephalic, atraumatic, anicteric Respiratory/Chest: no respiratory distress, no accessory muscle use Cardiovascular: normal rate Abdomen: soft, non tender, non distended Skin: other - axilla wound without drainage, back rash on sides and lower back with some erythema but no warmth or tenderness Chest x-ray - 04/13/20 - Procedure: XRAY Chest 1v Indication: Shortness of breath Technique: One view of the chest Comparison: 04/10/2020 Findings: Bilateral basilar and atelectatic changes persist. Retrocardiac consolidation may be slightly improved, but persistent. There are bilateral axillary surgical drains and left chest wall skin brianne noted. Impression: Persistent bilateral basilar atelectasis. Slightly improved retrocardiac consolidation Chest x-ray - 04/17/20 - IMPRESSION: Diffuse haziness in the left lung may represent artifact versus infectious/inflammatory process. Mild right basilar atelectasis. Microbiology Date/Time Source Procedure Growth Status 04/17/20 13:40 Stool Clostridium difficile Toxin Assay - Final Complete Laboratory Tests Test 04/17/20 16:00 04/18/20 05:35 Hepatitis A IgM Antibody Pending Hepatitis B Surface Antigen Pending Hepatitis B Core IgM Antibody Pending Hepatitis C Antibody Pending White Blood Count 12.0 K/UL (4.8-10.8) H Red Blood Count 3.50 M/UL (4.70-6.10) L Hemoglobin 10.6 G/DL (14.2-18.0) L Hematocrit 30.5 % (42.0-52.0) L Mean Corpuscular Volume 87 FL (80-99) Mean Corpuscular Hemoglobin 30.2 PG (27.0-31.0) Mean Corpuscular Hemoglobin Concent 34.7 G/DL (32.0-36.0) Red Cell Distribution Width 11.3 % (11.6-14.8) L Platelet Count 347 K/UL (150-450) Mean Platelet Volume 4.7 FL (6.5-10.1) L Neutrophils (%) (Auto) 71.2 % (45.0-75.0) Lymphocytes (%) (Auto) 12.6 % (20.0-45.0) L Monocytes (%) (Auto) 10.3 % (1.0-10.0) H Eosinophils (%) (Auto) 3.8 % (0.0-3.0) H Basophils (%) (Auto) 2.2 % (0.0-2.0) H Sodium Level 143 MMOL/L (136-145) Potassium Level 3.7 MMOL/L (3.5-5.1) Chloride Level 109 MMOL/L (98-107) H Carbon Dioxide Level 23 MMOL/L (21-32) Anion Gap 11 mmol/L (5-15) Blood Urea Nitrogen 7 mg/dL (7-18) Creatinine 1.0 MG/DL (0.55-1.30) Estimat Glomerular Filtration Rate > 60 mL/min (>60) Glucose Level 101 MG/DL (74-106) Calcium Level 8.5 MG/DL (8.5-10.1) Phosphorus Level 3.4 MG/DL (2.5-4.9) Magnesium Level 2.0 MG/DL (1.8-2.4) Total Bilirubin 0.3 MG/DL (0.2-1.0) Aspartate Amino Transf (AST/SGOT) 212 U/L (15-37) H Alanine Aminotransferase (ALT/SGPT) 302 U/L (12-78) H Alkaline Phosphatase 75 U/L (46-116) Total Protein 6.6 G/DL (6.4-8.2) Albumin 2.5 G/DL (3.4-5.0) L Globulin 4.1 g/dL Albumin/Globulin Ratio 0.6 (1.0-2.7) L Current Medications Medications (Trade) Dose Ordered Sig/Samanta Route PRN Reason Start Time Stop Time Status Last Admin Dose Admin Acetaminophen (Tylenol) 650 mg Q4H PRN ORAL FEVER 04/08/20 13:15 05/08/20 13:14 04/14/20 20:42 Acetaminophen/ Hydrocodone Bitart ([place] 10/325) 1 tab Q4H PRN ORAL Severe Pain (Pain Scale 7-10) 04/16/20 09:00 04/23/20 08:59 04/17/20 15:06 Acetaminophen/ Hydrocodone Bitart ([place] 5/325) 1 tab Q4H PRN ORAL Moderate Pain (Pain Scale 4-6) 04/16/20 09:00 04/23/20 08:59 04/18/20 10:37 Alprazolam (Xanax) 1 mg HSPRN PRN ORAL For Anxiety 04/13/20 13:45 04/20/20 13:44 04/13/20 20:36 Amoxicillin/ Clavulanate Potassium (Augmentin) 875 mg EVERY 12 HOURS ORAL 04/17/20 21:00 04/24/20 20:59 04/18/20 08:35 Diphenhydramine HCl (Benadryl) 25 mg Q6H PRN IVP Itching 04/15/20 09:44 05/15/20 09:43 Docusate Sodium (Colace) 100 mg DAILYPRN PRN ORAL constipation 04/16/20 10:30 05/16/20 10:29 Heparin Sodium (Porcine) (Heparin 5000 units/ml) 5,000 units EVERY 12 HOURS SUBQ 04/08/20 21:00 05/23/20 20:59 04/18/20 08:43 Ibuprofen (Motrin) 600 mg Q6H PRN ORAL headaches 04/15/20 09:44 05/15/20 09:43 Metoclopramide HCl (Reglan) 10 mg Q6H PRN IVP Nausea & Vomiting 04/11/20 13:26 05/11/20 13:25 Morphine Sulfate (Morphine Sulfate) 4 mg Q6H PRN IVP Severe Breakthru Pain (>7) 04/16/20 09:00 04/23/20 08:59 Nystatin (Nystatin) 1 applic BID TOPIC 04/18/20 09:00 07/17/20 08:59 04/18/20 08:35 Sennosides (Senokot) 8.6 mg DAILYPRN PRN ORAL Constipation 04/16/20 10:30 05/16/20 10:29 Trimethoprim/ Sulfamethoxazole (Bactrim-DS) 1 tab TWICE A DAY ORAL 04/18/20 09:00 04/25/20 08:59 04/18/20 08:35 Zolpidem Tartrate (Ambien) 5 mg DAILYPRN PRN ORAL Insomnia 04/16/20 22:15 04/23/20 22:14 04/18/20 03:18 Yg Moncada MD Apr 18, 2020 13:20
--- NOTE | 2020-04-18 14:04 | NUR ---
CASE MANAGEMENT: REVIEW 04/18/2020 SI: ACUTE POSTHEMORRHAGIC ANEMIA 98.5 83 20 137/76 98% ON RA WBC 12.0 AST/ALT 212/302 ALB 2.5 IS;BACTRIM-DS PO BID AMOXICILLIN PO BID HEPARIN SQ BID NYSTATIN PO BID NORCO PO Q4HR/PRN MED/SURG STATUS PLAN OF CARE: CONT WOUND CARE Addendum: 04/18/20 at 1415 by VAL MAURICIO LVN BILATERAL WOUND VAC CARE
--- NOTE | 2020-04-18 14:40 | NUR ---
INSURANCE FAXED REVIEW/CLINICALS TO [facility] [phone]
[2020-04-18 16:00] VITALS: BP 127/78
--- NOTE | 2020-04-18 19:40 | NUR ---
NURSE NOTES: Receive a report from SANTOS Morocho. Round is done. Pt is awake and alert. No acute distress noted. Dressing on left axilla kept dry and clean. Wound Vac has been removed. Steri-strips on right axilla kept clean without discharge. Pain is tolerating as 3/10. No chilling or febrile sensation. No IV access, MD aware. Call light within reach. Will continue to monitor.
--- NOTE | 2020-04-18 19:47 | NUR ---
NURSE HAND-OFF: Important Events on Shift:shower today, dressing change, Removed Wound Vac Patient Status: Diet: reg Pending Orders: Pending Results/Labs: Pending MD notification: Latest Vital Signs: Temperature 98.4 , Pulse 83 , B/P 127 /78 , Respiratory Rate 18 , O2 SAT 98 , Room Air, O2 Flow Rate 3 . Vital Sign Comment: stable Latest Tong Fall Score: 35 Fall Risk: Medium Risk Safety Measures: Call light Within Reach, Bed Alarm Zone 2, Side Rails Side Rails x2, Bed position Low and Locked. Fall Precautions: Yellow Gown Door Sign Patient Fall Education Report given to SANTOS Armas.
[2020-04-18 20:00] VITALS: BP 141/80
--- NOTE | 2020-04-18 21:15 | NUR ---
NURSE NOTES: Given Ambien 5mg 1t po for insomnia. Will continue to monitor.
[2020-04-18] MEDS: Bactrim-DS 1 tab ORAL SCH (21:19)
--- NOTE | 2020-04-18 23:40 | NUR ---
NURSE NOTES: Complains for insomnia despite earlier medication, itching sensation and pain. Given [place] 5/325 1 t po for moderate pain. Benadryl is only IV access form at this time. Explain for contacting for oral medication for itching and sleeping pill.
[2020-04-19] VITALS: BP 141/73
--- NOTE | 2020-04-19 00:10 | NUR ---
NURSE NOTES: Call back from Dr. Kamara and receive order of Benadryl 25mg 1c po once but no more sleeping pill at this time. Brought medication to pt but pt says that he will be okay for now. Will continue to monitor.
[2020-04-19 04:00] VITALS: BP 143/75
--- NOTE | 2020-04-19 04:00 | NUR ---
NURSE NOTES: Denies itching and got some sleep. Afebrile but chilling noted. Cover with extra blankets. Surgical sites are clean. Will continue to monitor.
[2020-04-19 05:44] LABS: EOSINOPHILS % (AUTO) 4.2 % (0.0-3.0); HEMATOCRIT 29.3 % (42.0-52.0); HEMOGLOBIN 10.2 G/DL (14.2-18.0); LYMPHOCYTES % (AUTO) 17.5 % (20.0-45.0); MEAN CORPUSCULAR VOLUME 87 FL (80-99); MONOCYTES % (AUTO) 10.7 % (1.0-10.0); NEUTROPHILS % (AUTO) 66.5 % (45.0-75.0); PLATELET COUNT 372 K/UL (150-450); RED BLOOD COUNT 3.36 M/UL (4.70-6.10); RED CELL DISTRIBUTION WIDTH 11.2 % (11.6-14.8); WHITE BLOOD COUNT 10.9 K/UL (4.8-10.8)
[2020-04-19 05:52] LABS: ALANINE AMINOTRANSFERASE 274 U/L (12-78); ALBUMIN 2.6 G/DL (3.4-5.0); ALBUMIN/GLOBULIN RATIO 0.7 (1.0-2.7); ALKALINE PHOSPHATASE 70 U/L (46-116); ANION GAP 11 mmol/L (5-15); ASPARTATE AMINO TRANSFERASE 124 U/L (15-37); BILIRUBIN,TOTAL 0.2 MG/DL (0.2-1.0); BLOOD UREA NITROGEN 8 mg/dL (7-18); CALCIUM 8.7 MG/DL (8.5-10.1); CARBON DIOXIDE 24 MMOL/L (21-32); CHLORIDE 108 MMOL/L (98-107); CREATININE 1.1 MG/DL (0.55-1.30); POTASSIUM 3.5 MMOL/L (3.5-5.1); SODIUM 142 MMOL/L (136-145)
--- NOTE | 2020-04-19 06:36 | NUR ---
NURSE HAND-OFF: Important Events on Shift: Given [place] 5/325 1x. Surgical sites dressing clean Patient Status: stable Diet: regular Pending Orders: Pending Results/Labs: Pending MD notification:[] Latest Vital Signs: Temperature 97.9 , Pulse 75 , B/P 143 /75 , Respiratory Rate 18 , O2 SAT 99 , Room Air, O2 Flow Rate 3 . Vital Sign Comment: [] Latest Tong Fall Score: 35 Fall Risk: Medium Risk Safety Measures: Call light Within Reach, Bed Alarm Zone 2, Side Rails Side Rails x2, Bed position Low and Locked. Fall Precautions: Yellow Gown Door Sign Patient Fall Education Report given to [].
--- NOTE | 2020-04-19 07:22 | NUR ---
HAND-OFF: Report given to SANTOS Baig.
--- NOTE | 2020-04-19 07:40 | NUR ---
NURSE NOTES: Received report from SANTOS Armas. Patient awake in bed, On room air with no signs of distress or SOB. Denies any pain at this time. No IV access. Axillary wound dressing clean dry and intact. Bed locked and in lowest position. Call light in reach. Will continue to monitor.
[2020-04-19 08:00] VITALS: BP 150/87
[2020-04-19] MEDS: Heparin 5000 units/ml inj SUBQ SCH ×2 (08:46→20:48)
[2020-04-19] MEDS: Bactrim-DS 1 tab ORAL SCH (08:46)
[2020-04-19] MEDS: Augmentin 875mg Tab ORAL SCH ×2 (08:46→20:48)
--- NOTE | 2020-04-19 11:08 | General Progress Note ---
Subjective Date patient seen: Apr 19, 2020 Time patient seen: 09:30 ROS Limited/Unobtainable: Yes Constitutional: Denies: no symptoms, chills, diaphoresis, fever, malaise, weakness, other HEENT: Denies: no symptoms, eye pain, blurred vision, tearing, double vision, ear pain, ear discharge, nose pain, nose congestion, throat pain, throat swelling, mouth pain, mouth swelling, other Cardiovascular: Denies: no symptoms, chest pain, edema, irregular heart rate, lightheadedness, palpitations, syncope, other Respiratory: Denies: no symptoms, cough, orthopnea, shortness of breath, SOB with excertion, SOB at rest, sputum, stridor, wheezing, other Gastrointestinal/Abdominal: Denies: no symptoms, abdomen distended, abdominal pain, black stools, tarry stools, blood in stool, constipated, diarrhea, difficulty swallowing, nausea, poor appetite, poor fluid intake, rectal bleeding, vomiting, other Genitourinary: Denies: no symptoms, burning, discharge, frequency, flank pain, hematuria, incontinence, pain, urgency, other Neurologic/Psychiatric: Denies: no symptoms, anxiety, depressed, emotional problems, headache, numbness, paresthesia, pre-existing deficit, seizure, tingling, tremors, weakness, other Endocrine: Denies: no symptoms, excessive sweating, flushing, intolerance to c old, intolerance to heat, increased hunger, increased thirst, increased urine, unexplained weight gain, unexplained weight loss, other Hematologic/Lymphatic: Denies: no symptoms, anemia, easy bleeding, easy bruising, other Allergies: Coded Allergies: No Known Allergies (Unverified , 04/08/20) All Systems: reviewed and negative except above Subjective Subjectively feeling well Sitting in chair today Denies and nausea/vomiting or change in bowel movements Objective Last 24 Hour Vital Signs Date Time Temp Pulse Resp B/P (MAP) Pulse Ox O2 Delivery O2 Flow Rate FiO2 04/19/20 09:00 Room Air 04/19/20 08:00 98.2 74 18 150/87 (108) 99 04/19/20 04:00 97.9 75 18 143/75 (97) 99 04/19/20 00:00 97.6 80 18 141/73 (95) 99 04/18/20 21:00 Room Air 04/18/20 20:00 97.9 82 18 141/80 (100) 100 04/18/20 16:00 98.4 83 18 127/78 (94) 98 04/18/20 12:00 98.7 80 18 130/77 (94) 98 04/18/20 11:07 98.5 Intake and Output 04/18/20 04/19/20 18:59 06:59 Intake Total 350 ml Balance 350 ml Intake Oral 350 ml # Voids 4 Laboratory Tests 04/19/20 04:40: White Blood Count 10.9H, Red Blood Count 3.36L, Hemoglobin 10.2L, Hematocrit 29.3L, Mean Corpuscular Volume 87, Mean Corpuscular Hemoglobin 30.4, Mean Corpuscular Hemoglobin Concent 34.9, Red Cell Distribution Width 11.2L, Platelet Count 372, Mean Platelet Volume 4.6L, Neutrophils (%) (Auto) 66.5, Lymphocytes (%) (Auto) 17.5L, Monocytes (%) (Auto) 10.7H, Eosinophils (%) (Auto) 4.2H, Basophils (%) (Auto) 1.0, Sodium Level 142, Potassium Level 3.5, Chloride Level 108H, Carbon Dioxide Level 24, Anion Gap 11, Blood Urea Nitrogen 8, Creatinine 1.1, Estimat Glomerular Filtration Rate > 60, Glucose Level 95, Calcium Level 8.7, Total Bilirubin 0.2, Aspartate Amino Transf (AST/SGOT) 124H, Alanine Aminotransferase (ALT/SGPT) 274H, Alkaline Phosphatase 70, Total Protein 6.2L, Albumin 2.6L, Globulin 3.6, Albumin/Globulin Ratio 0.7L Height (Feet): 5 Height (Inches): 9.00 Weight (Pounds): 210 General Appearance: no apparent distress, alert EENT: PERRL/EOMI Neck: supple Cardiovascular: normal rate, regular rhythm Respiratory/Chest: normal breath sounds, no respiratory distress Abdomen: normal bowel sounds, non tender, soft Extremities: other - Packing in place b/l axilla with brianne presents Edema: no edema noted Arm (L), no edema noted Arm (R), no edema noted Leg (L), no edema noted Leg (R), no edema noted Pedal (L), no edema noted Pedal (R), no edema noted Generalized Neurologic: top frame fitter II-XII grossly normal, oriented x 3 Skin: warm/dry Assessment/Plan Status: stable Assessment/Plan: 35 year old gentleman with a PMH of hydradenitis suppurativa presents after surgery with Dr. Leal for bilateral axillary hidradenitis suppurativa construction for post op pain, wound drainage and hypoxia. #Bilateral hydradenitis suppurativa s/p reconstruction # Elevated Leukocytosis - improving # Diarrhea - resolved - Concern for possible skin soft tissue infection following reconstruction - UA and C.Diff Negative, BC pending - ID Consult, Dr. Conway - Continue Augmentin and stop Bactrim, start Vancomycin 3-5d - Continue excellent wound care - Patient would greatly benefit from Inpatient rehab services at [facility] in the form of working with therapy services/physical therapy for 3hr/day, working with a globe tester every other day, and benefits for wound care following surgical procedure requiring short course of antibiotics IV - Dr. Leal following - Continue PT inpatient, OT - Case discussed with CM #Transaminitis - F/u Hep Panel - Repeat CMP in 2-3days #Acute blood loss anemia -Trend CBC closely - Transfuse for Hg less than 7 #Delirium 2/2 multifactorial causes - resolved - 04/14 - overnight episode of hallucination likley from severe pain, new xanax med and poor sleep Fluids: 75 cc NS Diet: regular DVT: Heparin 5000U BID Dispo: Pending placement at [facility] today if bed available I spent 35 minutes on this encounter with 25 minuted of care coordination and counseling. I discussed plan with Dr. Leal and Dr. Conway (ID), CM, and Nursing staff. Time of note does not reflect time patient was seen Carolyn Stout M.D. Apr 19, 2020 11:08
[2020-04-19] MEDS ORDERED: Vancomycin 1.25gm/NS Premix 275 ML IVPB SCH (11:15)
[2020-04-19 12:00] VITALS: BP 159/98
--- NOTE | 2020-04-19 13:00 | NUR ---
NURSE NOTES: Pt had shower assisted by . applied dry dressing left axilla wound per Dr. Leal. Pt tolerated well
--- NOTE | 2020-04-19 13:07 | NUR ---
P.T WEEKLY PROGRESS NOTES: PATIENT SEEN THIS PAST WEEK OF P.T SESSIONS. TREATMENT CONSISTED OF ADL/FUNCTIONAL MOBILITY TRAINING, GAIT TRAINING AND THERA EX'S FOCUSING ON BUE ROM EX'S , CONDITIONING/STRENGTHENING . PATIENT RESPONDED WELL TO TX EVIDENCED BY IMPROVED MOBILITY PERFORMANCE AND TOLERANCE. PATIENT IS INDEPENDENT WITH ROLLING, SBA/SUPERVISION WITH SUPINE TO/FROM SIT AND TRANSFER ACTIVITIES. PATIENT AMBULATES AND TOLERATES AVERAGE DISTANCE OF 300 FT W/O AD SBA/SUPERVISION. PATIENT CONTINUES TO BE LIMITED BY PAIN ON BILATERAL AXILLARY AREA AND DECREASED BILATERAL SHOULDER ROM FROM SURGICAL INCISIONS RESULTING TO DIFFICULTY IN FUNCTIONAL ACTIVITIES ESPECIALLY WITH HIS SELF CARE ACTIVITIES UPPER BODY AND LOWER BODY HYGIENE AND DRESSING. SINCE OT IS NOT AVAILABLE IN THIS FACILITY, P.T WILL CONTINUE WITH POC FOCUSING ON TEACHING ON COMPENSATORY STRATEGIES FOR ADL/FUNCTIONAL MOBILITIES AND SELF CARE DUE TO LIMITATION IN BUE ROM. RECOMMENDATION: CONTINUED REHAB TO ADDRESS ON BUE FUNCTION. Addendum: 04/19/20 at 1335 by RONEN LOMAS PT Amended: Links added.
[2020-04-19 16:00] VITALS: BP 141/72
--- NOTE | 2020-04-19 17:37 | Infectious Diseases Prog Note ---
Assessment/Plan Assessment/Plan ASSESSMENT AND PLAN: 1. bilateral axilla wound infection, hidradenitis suppurativa, ? sepsis, pna, leukocytosis, fevers, s/p surgery left arm swelling - no obvious cellulitis or septic joints, + pulse leukocytosis, c.diff. negative, cultures negative ? drug rash, not typical for HZV/shingles without one sided dermatomal distribution or typical fungal rash presentation, no risk factors for disseminated herpes - oral augmentin and iv vancomycin x 6 days - nystatin stopped stopped since not helping and not typical fungal rash p resentation - benadryl for pruritus, ? steroid cream for rash - will d/w primary team - monitor labs, leukocytosis better - left arm swelling better - wound management per Dr. Leal - continue per primary care team - chest x-ray noted 2. Hidradenitis suppurativa of the axilla, status post reconstruction, excision and wound closure, bilateral axilla. 3. Anemia. 4. Pain management per primary care team and consultants. 5. No history diabetes and hypertension. 6. No known drug allergies. 7. Social history is negative. 8. Family history is noncontributory. 9. MAR was noted. 10. Case was discussed with RN. Subjective Constitutional: Denies: fever HEENT: Denies: congestion Respiratory: Denies: shortness of breath Cardiovascular: Denies: chest pain Gastrointestinal/Abdominal: Denies: nausea, vomiting, diarrhea Genitourinary: Denies: dysuria, hematuria, frequency Neurologic: Denies: headache, weakness Psychiatric: Denies: depression Skin: Reports: rash - rash on sides of trunk and lower back and back of arms with itchin Hematologic: Denies: bleeding Musculoskeletal: Reports: pain - controlled Allergies: Coded Allergies: No Known Allergies (Unverified , 04/08/20) Objective Last 24 Hour Vital Signs Date Time Temp Pulse Resp B/P (MAP) Pulse Ox O2 Delivery O2 Flow Rate FiO2 04/19/20 16:00 97.5 82 18 141/72 (95) 99 04/19/20 12:00 97.5 77 18 159/98 (118) 100 04/19/20 09:00 Room Air 04/19/20 08:00 98.2 74 18 150/87 (108) 99 04/19/20 04:00 97.9 75 18 143/75 (97) 99 04/19/20 00:00 97.6 80 18 141/73 (95) 99 04/18/20 21:00 Room Air 04/18/20 20:00 97.9 82 18 141/80 (100) 100 Height (Feet): 5 Height (Inches): 9.00 Weight (Pounds): 210 General Appearance: no acute distress HEENT: normocephalic, atraumatic, anicteric Respiratory/Chest: lungs clear, normal breath sounds, no respiratory distress Cardiovascular: normal rate, regular rhythm Abdomen: normal bowel sounds, soft, non tender, no organomegaly Genitourinary: other - no brown Extremities: no cyanosis, other - left arm swelling better Skin: rash - wound intact, rash on sides of trunk, lower back, back of arm now Neurologic/Psychiatric: abnormal gait, oriented x 3, responsive Lymphatic: no neck adenopathy Musculoskeletal: no effusion Chest x-ray - 04/13/20 - Procedure: XRAY Chest 1v Indication: Shortness of breath Technique: One view of the chest Comparison: 04/10/2020 Findings: Bilateral basilar and atelectatic changes persist. Retrocardiac consolidation may be slightly improved, but persistent. There are bilateral axillary surgical drains and left chest wall skin brianne noted. Impression: Persistent bilateral basilar atelectasis. Slightly improved retrocardiac consolidation Chest x-ray - 04/17/20 - IMPRESSION: Diffuse haziness in the left lung may represent artifact versus infectious/inflammatory process. Mild right basilar atelectasis. Microbiology Date/Time Source Procedure Growth Status 04/18/20 09:00 Sputum Expectorated Gram Stain - Final Resulted 04/18/20 09:00 Sputum Expectorated Sputum Culture - Preliminary NORMAL UPPER RESPIRATORY ANANTH AT 24 ... Resulted 04/17/20 16:00 Blood Blood Culture - Preliminary NO GROWTH AFTER 24 HOURS Resulted 04/17/20 15:50 Blood Blood Culture - Preliminary NO GROWTH AFTER 24 HOURS Resulted 04/17/20 13:40 Stool Clostridium difficile Toxin Assay - Final Complete Laboratory Tests Test 04/19/20 04:40 White Blood Count 10.9 K/UL (4.8-10.8) H Red Blood Count 3.36 M/UL (4.70-6.10) L Hemoglobin 10.2 G/DL (14.2-18.0) L Hematocrit 29.3 % (42.0-52.0) L Mean Corpuscular Volume 87 FL (80-99) Mean Corpuscular Hemoglobin 30.4 PG (27.0-31.0) Mean Corpuscular Hemoglobin Concent 34.9 G/DL (32.0-36.0) Red Cell Distribution Width 11.2 % (11.6-14.8) L Platelet Count 372 K/UL (150-450) Mean Platelet Volume 4.6 FL (6.5-10.1) L Neutrophils (%) (Auto) 66.5 % (45.0-75.0) Lymphocytes (%) (Auto) 17.5 % (20.0-45.0) L Monocytes (%) (Auto) 10.7 % (1.0-10.0) H Eosinophils (%) (Auto) 4.2 % (0.0-3.0) H Basophils (%) (Auto) 1.0 % (0.0-2.0) Sodium Level 142 MMOL/L (136-145) Potassium Level 3.5 MMOL/L (3.5-5.1) Chloride Level 108 MMOL/L (98-107) H Carbon Dioxide Level 24 MMOL/L (21-32) Anion Gap 11 mmol/L (5-15) Blood Urea Nitrogen 8 mg/dL (7-18) Creatinine 1.1 MG/DL (0.55-1.30) Estimat Glomerular Filtration Rate > 60 mL/min (>60) Glucose Level 95 MG/DL (74-106) Calcium Level 8.7 MG/DL (8.5-10.1) Total Bilirubin 0.2 MG/DL (0.2-1.0) Aspartate Amino Transf (AST/SGOT) 124 U/L (15-37) H Alanine Aminotransferase (ALT/SGPT) 274 U/L (12-78) H Alkaline Phosphatase 70 U/L (46-116) Total Protein 6.2 G/DL (6.4-8.2) L Albumin 2.6 G/DL (3.4-5.0) L Globulin 3.6 g/dL Albumin/Globulin Ratio 0.7 (1.0-2.7) L Current Medications Medications (Trade) Dose Ordered Sig/Samanta Route PRN Reason Start Time Stop Time Status Last Admin Dose Admin Acetaminophen (Tylenol) 650 mg Q4H PRN ORAL FEVER 04/08/20 13:15 05/08/20 13:14 04/14/20 20:42 Acetaminophen/ Hydrocodone Bitart ([place] 10/325) 1 tab Q4H PRN ORAL Severe Pain (Pain Scale 7-10) 04/16/20 09:00 04/23/20 08:59 04/17/20 15:06 Acetaminophen/ Hydrocodone Bitart ([place] 5/325) 1 tab Q4H PRN ORAL Moderate Pain (Pain Scale 4-6) 04/16/20 09:00 04/23/20 08:59 04/18/20 23:37 Alprazolam (Xanax) 1 mg HSPRN PRN ORAL For Anxiety 04/13/20 13:45 04/20/20 13:44 04/13/20 20:36 Amoxicillin/ Clavulanate Potassium (Augmentin) 875 mg EVERY 12 HOURS ORAL 04/17/20 21:00 04/24/20 20:59 04/19/20 08:46 Clotrimazole (Lotrimin) 1 applic BID TOPIC 04/19/20 18:00 07/18/20 17:59 Diphenhydramine HCl (Benadryl) 25 mg Q6H PRN IVP Itching 04/15/20 09:44 05/15/20 09:43 Diphenhydramine HCl (Benadryl) 25 mg Q6H PRN ORAL Itching 04/19/20 05:50 05/19/20 05:49 Docusate Sodium (Colace) 100 mg DAILYPRN PRN ORAL constipation 04/16/20 10:30 05/16/20 10:29 Heparin Sodium (Porcine) (Heparin 5000 units/ml) 5,000 units EVERY 12 HOURS SUBQ 04/08/20 21:00 05/23/20 20:59 04/19/20 08:46 Ibuprofen (Motrin) 600 mg Q6H PRN ORAL headaches 04/15/20 09:44 05/15/20 09:43 Metoclopramide HCl (Reglan) 10 mg Q6H PRN IVP Nausea & Vomiting 04/11/20 13:26 05/11/20 13:25 Morphine Sulfate (Morphine Sulfate) 4 mg Q6H PRN IVP Severe Breakthru Pain (>7) 04/16/20 09:00 04/23/20 08:59 Sennosides (Senokot) 8.6 mg DAILYPRN PRN ORAL Constipation 04/16/20 10:30 05/16/20 10:29 Vancomycin HCl ([facility] pharmacy to dose) 1 ea DAILY PRN MISC Per rx protocol 04/19/20 11:15 05/19/20 11:14 Vancomycin HCl 1 gm/Sodium Chloride 250 ml @ 167.007 mls/hr Q12HR@0600,1800 IVPB 04/19/20 18:00 04/24/20 12:59 Zolpidem Tartrate (Ambien) 5 mg DAILYPRN PRN ORAL Insomnia 04/16/20 22:15 04/23/20 22:14 04/18/20 21:25 Yg Moncada MD Apr 19, 2020 17:37
--- NOTE | 2020-04-19 18:12 | NUR ---
INSURANCE CLINICALS FAXED TO [facility] [phone]
--- NOTE | 2020-04-19 19:29 | NUR ---
NURSE HAND-OFF: Important Events on Shift:[started Vanco IV, Pending discharge to rehab] Patient Status: [stable] Diet: [reg] Pending Orders: [n] Pending Results/Labs:[n] Pending MD notification:[n] Latest Vital Signs: Temperature 97.5 , Pulse 82 , B/P 141 /72 , Respiratory Rate 18 , O2 SAT 99 , Room Air, O2 Flow Rate 3 . Vital Sign Comment: [stable] Latest Tong Fall Score: 35 Fall Risk: Medium Risk Safety Measures: Call light Within Reach, Bed Alarm Zone 2, Side Rails Side Rails x2, Bed position Low and Locked. Fall Precautions: Yellow Gown Door Sign Patient Fall Education Report given to [SANTOS Vigil].
--- NOTE | 2020-04-19 19:32 | NUR ---
NURSE NOTES: received pt and report from SANTOS Juarez. pt alert and oriented x 4 with no acute s/s of distress and no c/o pain. SUrgical wound noted on R axilla open to air and on left axilla surgical dressing clean dry and intact. IV site patent and running ordered vancomycin. Plan of care discussed.
[2020-04-19 20:00] VITALS: BP 140/73
[2020-04-19] MEDS: Zolpidem 5mg tab ORAL PRN (23:04)
--- NOTE | 2020-04-19 23:10 | NUR ---
NURSE NOTES: patient experiencing difficulty sleeping. ambien given. other than insomnia, patient with no acute s/s of distress or c/o pain.
[2020-04-20] VITALS (7 sets, daily range): BP systolic 109–175; BP diastolic 62–95
--- NOTE | 2020-04-20 07:07 | NUR ---
NURSE NOTES: Handoff received from Musa RN. Patient is awake and alert, doing squats in the hallway. R Axilla surgical wound open to air, left is bandaged with gauze and paper tape. Right hand 22g is intact and asymptomatic, running antibiotics as ordered. Patient updated on plan of care. Bed is low and locked, side rails up x2, call light is within reach.
--- NOTE | 2020-04-20 07:43 | NUR ---
NURSE HAND-OFF: Important Events on Shift: Pain management Patient Status: stable Diet: regular Pending Orders: na Pending Results/Labs: na Pending MD notification: na Latest Vital Signs: Temperature 98.3 , Pulse 74 , B/P 140 /77 , Respiratory Rate 15 , O2 SAT 99 , Room Air, O2 Flow Rate 3 . Vital Sign Comment: stable throughout shift Latest Tong Fall Score: 35 Fall Risk: Medium Risk Safety Measures: Call light Within Reach, Bed Alarm Zone 2, Side Rails Side Rails x2, Bed position Low and Locked. Fall Precautions: Yellow Gown Door Sign Patient Fall Education Report given to Osmin.
[2020-04-20] MEDS: Heparin 5000 units/ml inj SUBQ SCH ×2 (09:27→20:44)
[2020-04-20] MEDS: Bactrim-DS 1 tab ORAL SCH ×2 (09:29→20:44)
[2020-04-20] MEDS: Augmentin 875mg Tab ORAL SCH ×2 (09:29→20:44)
--- NOTE | 2020-04-20 10:37 | General Progress Note ---
Subjective Date patient seen: Apr 20, 2020 Time patient seen: 09:15 ROS Limited/Unobtainable: No Constitutional: Denies: no symptoms, chills, diaphoresis, fever, malaise, weakness, other HEENT: Denies: no symptoms, eye pain, blurred vision, tearing, double vision, ear pain, ear discharge, nose pain, nose congestion, throat pain, throat swelling, mouth pain, mouth swelling, other Cardiovascular: Denies: no symptoms, chest pain, edema, irregular heart rate, lightheadedness, palpitations, syncope, other Respiratory: Denies: no symptoms, cough, orthopnea, shortness of breath, SOB with excertion, SOB at rest, sputum, stridor, wheezing, other Gastrointestinal/Abdominal: Denies: no symptoms, abdomen distended, abdominal pain, black stools, tarry stools, blood in stool, constipated, diarrhea, difficulty swallowing, nausea, poor appetite, poor fluid intake, rectal bleeding, vomiting, other Genitourinary: Denies: no symptoms, burning, discharge, frequency, flank pain, hematuria, incontinence, pain, urgency, other Neurologic/Psychiatric: Denies: no symptoms, anxiety, depressed, emotional problems, headache, numbness, paresthesia, pre-existing deficit, seizure, tingling, tremors, weakness, other Endocrine: Denies: no symptoms, excessive sweating, flushing, intolerance to co ld, intolerance to heat, increased hunger, increased thirst, increased urine, unexplained weight gain, unexplained weight loss, other Hematologic/Lymphatic: Denies: no symptoms, anemia, easy bleeding, easy bruising, other Allergies: Coded Allergies: No Known Allergies (Unverified , 04/08/20) Subjective Unfortunately patient declined from [facility] yesterday Working with PT services Feels tightness in axilla but no pain Denies n/v or change in bowel movements Objective Last 24 Hour Vital Signs Date Time Temp Pulse Resp B/P (MAP) Pulse Ox O2 Delivery O2 Flow Rate FiO2 04/20/20 08:00 98.1 72 19 175/95 (121) 99 04/20/20 04:00 98.3 74 15 140/77 (98) 99 04/20/20 00:00 98.1 77 14 138/80 (99) 98 04/19/20 21:00 Room Air 04/19/20 20:00 98.0 77 16 140/73 (95) 98 04/19/20 19:36 98 Room Air 21 04/19/20 16:00 97.5 82 18 141/72 (95) 99 04/19/20 12:00 97.5 77 18 159/98 (118) 100 Intake and Output 04/19/20 04/20/20 19:00 07:00 Intake Total 300 ml Output Total 1100 ml Balance -800 ml Intake Oral 300 ml Output Urine Total 1100 ml # Voids 3 Height (Feet): 5 Height (Inches): 9.00 Weight (Pounds): 210 General Appearance: no apparent distress, alert EENT: PERRL/EOMI Neck: supple Cardiovascular: normal rate, regular rhythm Respiratory/Chest: lungs clear Extremities: other - Dressing with wound packing in b/l axilla, c/d/i Neurologic: alert, oriented x 3 Skin: warm/dry Assessment/Plan Status: stable Assessment/Plan: 35 year old gentleman with a PMH of hydradenitis suppurativa presents after surgery with Dr. Leal for bilateral axillary hidradenitis suppurativa construction for post op pain, wound drainage and hypoxia. #Bilateral hydradenitis suppurativa s/p reconstruction # Elevated Leukocytosis - improving # Diarrhea - resolved - Concern for possible skin soft tissue infection following reconstruction - UA and C.Diff Negative, BC pending - ID Consult, Dr. Conway - Continue Augmentin and Bactrim for 5d - Continue excellent wound care - Dr. Leal following - Continue PT inpatient - Case discussed with CM with plan for home health with wound vac #Transaminitis - F/u Hep Panel - Repeat CMP tomorrow #Acute blood loss anemia - No signs of blood loss - Transfuse for Hg less than 7 #Delirium 2/2 multifactorial causes - resolved - 04/14 - overnight episode of hallucination likley from severe pain, new xanax med and poor sleep Diet: regular DVT: Heparin 5000U BID Dispo: Plan for home with home health with wound vac I spent 35 minutes on this encounter with 25 minuted of care coordination and counseling. I discussed plan with Dr. Leal and Dr. Conway (ID), CM, and Nursing staff. Time of note does not reflect time patient was seen Carolyn Stout M.D. Apr 20, 2020 10:37
--- NOTE | 2020-04-20 11:02 | NUR ---
NURSE NOTES: Patient requested for his IV to be taken out. Dr. Stout was called and said it was ok to remove IV.
--- NOTE | 2020-04-20 12:25 | NUR ---
*-*DISCHARGE PLANNING*-* PATIENT HAS BEEN REFERRED TO: [facility] T:[phone] F:[phone] WAITING FOR AUTH FROM INSURANCE ACCEPTED ONCE AUTHORIZED BY INSURANCE
--- NOTE | 2020-04-20 12:27 | NUR ---
*-*DISCHARGE PLANNING*-* PATIENT HAS BEEN REFERRED TO: [facility] T: [phone] F:[phone] WAITING FOR EQUIPMENT TO BE AUTHORIZED
--- NOTE | 2020-04-20 15:31 | NUR ---
*-*DISCHARGE PLANNED*-* PATIENT HAS ACCEPTED TO: [facility] T:[phone] F:[phone] WAITING ON WOUND VAC TO BE AUTHORIZED AND DELIVERED FRO DISCHARGE
--- NOTE | 2020-04-20 15:32 | NUR ---
CASE MANAGEMENT: REVIEW 04/20/2020 SI: S/P EXCISION OF BILATERAL AXILLARY HIDRADENITIS W/ FLAP CREATION ACUTE POSTHEMORRHAGIC ANEMIA 98.0 77 16 140/73 98% ON RA IS;BACTRIM-DS PO BID AMOXICILLIN PO BID HEPARIN SQ BID NYSTATIN PO BID NORCO PO Q4HR/PRN MED/SURG STATUS PLAN OF CARE: CONT WOUND CARE BILATERAL WOUND VAC CARE CASE MANAGEMENT: REVIEW 04/19/2020 SI: ACUTE POSTHEMORRHAGIC ANEMIA 98.5 83 20 137/76 98% ON RA WBC 10.9 AST/ALT 124/274 ALB 2.6 IS;BACTRIM-DS PO BID AMOXICILLIN PO BID HEPARIN SQ BID NYSTATIN PO BID NORCO PO Q4HR/PRN MED/SURG STATUS PLAN OF CARE: CONT WOUND CARE BILATERAL WOUND VAC CARE
--- NOTE | 2020-04-20 17:38 | NUR ---
*-*DISCHARGE PLANNING*-* PATIENT HAS BEEN REFERRED TO: [facility] T: [phone] F:[phone] WAITING FOR EQUIPMENT TO BE AUTHORIZED Updated info sent NEEDED: size for wound dressing type MD info (NPI + phone number) Faxed @530pm
--- NOTE | 2020-04-20 19:25 | NUR ---
HAND-OFF: Report given to Maryam GRAHAM.
--- NOTE | 2020-04-20 19:35 | NUR ---
NURSE NOTES: Received report & pt from SANTOS Solorio. Pt in bed, a&ox4, in room air. No s/s of acute distress & no c/o pain at this time. Surgical dressing C/D/I. No IV site & MD aware. Plan of care discussed. Addendum: 04/20/20 at 1953 by Maryam Jordan RN Noted wound vac. 175mmHg low continuous.
[2020-04-21] MEDS: Zolpidem 5mg tab ORAL PRN (00:14)
--- NOTE | 2020-04-21 06:43 | NUR ---
NURSE HAND-OFF: Important Events on Shift:none Patient Status: stable Diet: Regular Pending Orders: Pending d/c to home with home health with wound vac Pending Results/Labs:none Pending MD notification:none Latest Vital Signs: Temperature 98.1 , Pulse 74 , B/P 109 /62 , Respiratory Rate 16 , O2 SAT 97 , Room Air, O2 Flow Rate 3 . Vital Sign Comment: none Latest Tong Fall Score: 35 Fall Risk: Medium Risk Safety Measures: Call light Within Reach, Bed Alarm Zone 2, Side Rails Side Rails x2, Bed position Low and Locked. Fall Precautions: Yellow Gown Door Sign Patient Fall Education Report given to . Addendum: 04/21/20 at 0724 by Maryam Jordan RN Report given to SANTOS Da Silva.
--- NOTE | 2020-04-21 07:11 | NUR ---
NURSE NOTES: Report received from Maryam RN, rounds made. Patient resting in semi-fowlers position in bed, AOx4, slightly anxious about not receiving his portable wound vac yet, will follow up with [employer] and update patient. Respirations even/unlabored on RA. No IV access. Left axillary wound vac dressing (bacon sponge with tegederm), connected to wound vac (low continuous 175 mmHG), Right axillary BRANDIN. Hands/arms warm, pulses palpable, moves UE slowly. Encouraged IS, demonstrates correctly. Bilateral SCDs off. Call light in reach, bed in lowest position, will continue to monitor.
[2020-04-21 07:37] LABS: ALBUMIN/GLOBULIN RATIO 0.9 (1.0-2.7); ALKALINE PHOSPHATASE 65 U/L (46-116); ANION GAP 10 mmol/L (5-15); ASPARTATE AMINO TRANSFERASE 89 U/L (15-37); BILIRUBIN,TOTAL 0.2 MG/DL (0.2-1.0); CARBON DIOXIDE 23 MMOL/L (21-32); CHLORIDE 107 MMOL/L (98-107); CREATININE 1.1 MG/DL (0.55-1.30); SODIUM 140 MMOL/L (136-145)
[2020-04-21 08:00] VITALS: BP 138/84
[2020-04-21 08:55] LABS: ALANINE AMINOTRANSFERASE 264 U/L (12-78); BLOOD UREA NITROGEN 12 mg/dL (7-18)
--- NOTE | 2020-04-21 08:56 | NUR ---
NURSE NOTES: Spoke with [employer] technical sales representatives, regarding patient awaiting on authorization for portable wound vac, all information provided, with call back number, will update me within 2 hours. Will update patient.
[2020-04-21] MEDS: Heparin 5000 units/ml inj SUBQ SCH (09:00)
--- NOTE | 2020-04-21 09:05 | NUR ---
RD ASSESSMENT & RECOMMENDATIONS SEE CARE ACTIVITY FOR COMPLETE ASSESSMENT DAILY ESTIMATED NEEDS: Needs based on wound/ 78.7kg 25-30 kcals/kg 7322-0259 total kcals 1.25-1.5 g protein/kg 98-118 g total protein 25-30 mL/kg 4091-8664 total fluid mLs NUTRITION DIAGNOSIS: Increased protein intake needs R/T wound healing as evidenced by h/o bilateral hydradenitis suppurativa as evidenced by s/p excision of bilateral axillary hydradenitis (04/08) and revision and closure of bilateral axillary wounds (04/11), w/ wound vac. CURRENT DIET:REGULAR PO DIET RECOMMENDATIONS: REGULAR diet as tolerated ADDITIONAL RECOMMENDATIONS: * Standing wt as able for accurate CBW * Wound healing: MVI x 1, Vit C 500mg QD, ZnSO4 220mg QD x 10 days Jose BID as tolerated * Monitor PO intake and tolerance closely * Monitor BM regularity: none since adm noted Prune juice BID added to tray
[2020-04-21] MEDS: Bactrim-DS 1 tab ORAL SCH (09:31)
[2020-04-21] MEDS: Augmentin 875mg Tab ORAL SCH (09:31)
[2020-04-21] MEDS ORDERED: HYDROCODON-ACE1 EA15 ORAL (10:43)
[2020-04-21] MEDS ORDERED: AMOX TR-K CLV1 EAC2 ORAL (10:43)
[2020-04-21] MEDS ORDERED: BACTRIM-DS1 EA ORAL (10:43)
--- NOTE | 2020-04-21 10:49 | Discharge Summary ---
Discharge Summary Hospital Course Date of Admission Apr 08, 2020 at 11:35 Date of Discharge 04/21/20 Admitting Diagnosis post op hypoxia, pain HPI 35 year old gentleman with a PMH of hydradenitis suppurativa presents after surgery with Dr. Leal for bilateral axillary hidradenitis suppurativa construction for post op pain, wound drainage and hypoxia. Patient tolerated the surgery well. Estimated blood loss is 100 cc. Currently pain is 4/10 and explained how to use [employer] pump. Patient has no MOISES drains. He has no other complai nts besides being groggy from anesthesia. He was on Augmentin and ciprofloxacin prior to proedure. Denies chest pain, headache, blurred vision, weakness, abdominal pain, dysuria or fever. Consultations Dr. Elvis Conway ID Hospital Course 35 year old gentleman with a PMH of hydradenitis suppurativa presents after surgery with Dr. Leal for bilateral axillary hidradenitis suppurativa construction for post op pain, wound drainage and hypoxia. #Bilateral hydradenitis suppurativa s/p reconstruction # Elevated Leukocytosis - improving # Diarrhea - resolved - Concern for possible skin soft tissue infection following reconstruction - UA and C.Diff Negative, BC pending - ID Consult, Dr. Conway - Continue Augmentin and Bactrim for 5d - Continue excellent wound care - Dr. Leal following - Continue PT inpatient - Case discussed with CM with plan for home health with wound vac #Transaminitis - F/u Hep Panel - Repeat CMP tomorrow #Acute blood loss anemia - resolving - No signs of blood loss - Transfuse for Hg less than 7 #Delirium 2/2 multifactorial causes - resolved - 04/14 - overnight episode of hallucination likley from severe pain, new xanax med and poor sleep Diet: regular DVT: Heparin 5000U BID Dispo: Plan for home with home health with wound vac I spent 60 minutes on this encounter with 40 minuted of care coordination and counseling. I discussed plan with Dr. Leal and Dr. Conway (ID), CM, and Nursing staff. Discharge Medications New Medications: Amoxicillin/Potassium Clav 875-125 Mg Tab* (Amox Tr-K Clv 875-125 Mg Tab*) 1 Each Tablet 875 MG ORAL EVERY 12 HOURS for 5 Days, #10 TAB Hydrocodone/Acetaminophen 5-325* (Hydrocodone/Acetaminophen 5-325*) 1 Each Tablet 1 TAB ORAL Q4H PRN for 5 Days, #12 TAB Trimethoprim/Sulfamethoxazole (Bactrim Ds Tablet) 1 Each Tablet 1 TAB ORAL Q12HR for 5 Days, #10 TAB Discontinued Medications: Amoxicillin/Potassium Clav 875-125* (Augmentin 875-125 Tablet*) 1 Each Tablet 1 TAB ORAL TWICE A DAY for as prescribed, TAB Ciprofloxacin* (Cipro*) 500 Mg Tablet 750 MG PO BID for as prescribed, #14 TAB Hydrocodone Bit/Acetaminophen 5-325* ([place] 5-325 Tablet*) 1 Each Tablet 1 TAB ORAL Q6H PRN for FOR PAIN, #12 TAB 0 Refills Discharge Condition Upon Discharge: stable Discharge Vital Signs Last Vital Signs Date Time Temp Pulse Resp B/P (MAP) Pulse Ox O2 Delivery O2 Flow Rate FiO2 04/21/20 08:00 98.3 85 20 138/84 (102) 98 04/20/20 21:00 Room Air 04/19/20 19:36 21 Discharge Disposition Patient was discharged to Discharge Diagnoses: (1) Postoperative hypoxia (2) Post-op pain (3) Wound drainage (4) Acute blood loss anemia (5) HCAP (healthcare-associated pneumonia) (6) Hidradenitis suppurativa (7) Hyponatremia Kael Shankar M.D. Apr 21, 2020 10:49
--- NOTE | 2020-04-21 11:18 | NUR ---
CASE MANAGEMENT: REVIEW SI: BILATERAL AXILLARY HIDRADENITIS SUPPURATIVA BILATERAL AXILLARY HS EXCISION & FLAP ELEVATION 04/08 T 98.3 HR 85 RR 20 BP 138/84 SAT 98% ROOM AIR AST 89 ALT 264 IS: BACTRIM DS PO Q12HR HEPARIN SUBQ Q12HR NORCO 10/325 PO Q4HR PRN MED/SURG STATUS DCP: PATIENT WILL DC HOME w/ DME
[2020-04-21 12:00] VITALS: BP 141/73
--- NOTE | 2020-04-21 14:30 | NUR ---
NURSE NOTES: Dr. Leal and Dr. Shankar notified that patient decided to be discharged home without the portable wound vac, he will have it shipped to his home and the agency will connect the portable wound vac. Original wound vac dressing to remain in place to left axillary, the tubing will just be and the end to be enclosed/covered to maintain universal precautions/infection control. Patient is aware of this, verbalized understanding.
--- NOTE | 2020-04-21 14:47 | NUR ---
NURSE NOTES: Message left for Dr. Shankar regarding disconnecting wound vac prior to discharge, awaiting call back.
--- NOTE | 2020-04-21 14:48 | NUR ---
INSURANCE FAXED DC SUMMARY TO [facility] [phone]
--- NOTE | 2020-04-21 14:55 | NUR ---
NURSE NOTES: Spoke to Dr. Shankar, unable to return to hospital to disconnect wound vac tubing, orders for nursing staff to disconnect. Will discuss with Mariann MCNAMARA Addendum: 04/21/20 at 1457 by Rekha Jenkins RN Disconnect = separate tubing for each other.
--- NOTE | 2020-04-21 15:30 | NUR ---
[employer] NOTES SPOKE WITH DINAH FROM [facility],ORDER NEED SPECIFIC CODES FROM [employer] FOR APPROVAL.CODES EMAILED FOR APPROVAL.SPOKE WITH LUDIN FROM [facility], PT ACCEPTED WITH ADDITIONAL ORDERS FOR WOUND CARE FAXED.WILL FOLLOW UP WITH DINAH FOR ETA. LUDIN MAURO [phone]
--- NOTE | 2020-04-21 15:45 | NUR ---
NURSE NOTES: Wound vac tubing with Mariann CLINE, applied 4x4 with tegederm and IV tape to secure. Applied dry sterile dressing (4x4, ABD and medipore tape to bilateral axillary surgical site/sutures). Discharge instructions and prescription x1 reviewed with patient and spouse, verbalized understanding. All belongings, discharge instructions, prescription x1 and wound care supplies (4x4, ABDs, paper tape, medipore tape) provided. ID bracelets removed. Patient ambulated down to lobby with Mariann CLINE, in stable condition. Discharged home (Home Health) at 1545.
[2020-04-21] MEDS ORDERED: D5 1/2NS 1000ml IV ONE (15:49)
--- NOTE | 2020-04-28 21:31 | Coder Physician Query ---
Clarification is required for compliance, coding accuracy, and to reflect severity of illness for this patient. Dear Dr. MORENO Date:04/27/20 [employer] Architect: Emery, CCS 35 year old gentleman with a PMH of hydradenitis suppurativa presents after surgery with Dr. Leal for bilateral axillary hidradenitis suppurativa construction for post op pain, wound drainage and hypoxia. Patient tolerated the surgery well. Estimated blood loss is 100 cc. 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 Patient has no MOISES drains. He has no other complaints besides being groggy from anesthesia. He was on Augmentin and ciprofloxacin prior to proedure. Denies chest pain, headache, blurred vision, weakness, abdominal pain, dysuria or fever. #Bilateral hydradenitis suppurativa s/p reconstruction # Elevated Leukocytosis - improving # Diarrhea - resolved - Concern for possible skin soft tissue infection following reconstruction - UA and C.Diff Negative, ( BC negative) - ID Consult, Dr. Conway - Continue Augmentin and Bactrim for 5d bilateral axilla wound infection, hidradenitis suppurativa, ? sepsis, pna, leukocytosis, fevers, s/p surgery left arm swelling - no obvious cellulitis or septic joints, + pulse leukocytosis, c.diff. negative, cultures negative A posssible diagnois of SEPSIS was made in the medical record on ID progress notes, not mentioned in the Discharge summary. Upon review, it is difficult to determine whether this diagnosis has been ruled in, ruled out,or is still being worked up. Please indicate below the status of the aforementioned diagnosis. [] Ruled out [] Treated and resolve [] Presumed and treated [] Currently under treatment [] Still being worked-up Physician signature Date Please also document in your Progress Notes and/or Discharge Summary and indicate if the condition was present on admission. MTDD
== END 2020-04-21 15:50 | disposition home health service (06) | DRG 570 ==
LOC: SDSOVERFLO 11:35 → EDSTATUS 13:30 → 3E 18:07
DX: L73.2 Hidradenitis suppurativa (principal); A41.9 Sepsis, unspecified organism; J18.9 Pneumonia, unspecified organism; D62 Acute posthemorrhagic anemia; E87.1 Hypo-osmolality and hyponatremia; T81.49XA Infection following a procedure, other surgical site, initial encounter; G89.18 Other acute postprocedural pain; R19.7 Diarrhea, unspecified; R41.0 Disorientation, unspecified; R09.02 Hypoxemia
CPT/HCPCS: 36415; 71045; 76700; 80048; 80053; 80202; 81003; 82550; 83735; 84100; 85025; 85610; 86705; 86709; 86803; 87040; 87070; 87081; 87205; 87324; 87340; 93970; 93971; 94003; 94150; J2180; J2250; J2405; J2710; J8499; U0002